=== PATIENT | female | born 1945 | race Caucasian/White ===

== ENCOUNTER 2018-07-06 18:13 | Inpatient (IN) | payer MEDICARE ==
[~2018-07-06] VITALS: Ht 160 cm; Wt 74.9 kg
[2018-07-06] VITALS (7 sets, daily range): BP systolic 142–183; BP diastolic 59–79; PULSE 70–72; RESP 16–18; Ht 160 cm; Wt 74.9 kg
[2018-07-06] MEDS ORDERED: AMLODIPINE 5 MG TAB PO PRN (23:30)
[2018-07-07] MEDS ORDERED: BISACODYL 10 MG SUPP PR PRN
[2018-07-07] MEDS ORDERED: CALCIUM CARBONATE 500 MG CHEW TAB PO PRN
[2018-07-07] MEDS ORDERED: MELATONIN 3 MG TABLET PO PRN
[2018-07-07] MEDS ORDERED: ONDANSETRON 4 MG TAB PO PRN
[2018-07-07] MEDS ORDERED: GLUCOSE GEL 15 GRAM TUBE PO PRN ×2 (01:00)
[2018-07-07] MEDS ORDERED: DEXTROSE 50% 50 ML SYRINGE IV PRN ×2 (01:00)
[2018-07-07] MEDS ORDERED: GLUCOSE GEL 15 GRAM TUBE BUCCAL PRN (01:00)
[2018-07-07] MEDS ORDERED: GLUCAGON 1 MG INJ IM PRN (01:00)
[2018-07-07 02:00] VITALS: BP 152/76; PULSE 69; RESP 18
[2018-07-07] MEDS ORDERED: LACTULOSE 30ML CUP PO PRN (03:30)
[2018-07-07] MEDS ORDERED: MAGNESIUM HYDROXIDE 30ML CUP PO PRN (03:30)
[2018-07-07] MEDS: LEVOFLOXACIN 500 MG TAB PO SCH (06:42)
[2018-07-07] MEDS: PANTOPRAZOLE (EC) 40 MG TAB PO SCH (06:43)
[2018-07-07 07:30] VITALS: BP 180/77; PULSE 95; RESP 20
[2018-07-07] MEDS: metFORMIN 500 MG TAB PO SCH (08:06)
[2018-07-07] MEDS: INSULIN ASPART [NOVOLOG] 3 ML PEN SC SCH ×7 (08:07→20:19)
[2018-07-07] MEDS: HYDROCODONE/APAP (5/325) TAB PO PRN ×3 (08:08→20:40)
[2018-07-07] MEDS: DOCUSATE SODIUM 100 MG CAP PO SCH ×2 (08:09→19:51)
[2018-07-07] MEDS: LEVETIRACETAM 500 MG TAB PO SCH (08:09)
[2018-07-07] MEDS: FENOFIBRATE 145 MG TAB PO SCH (08:09)
[2018-07-07] MEDS: METOPROLOL (XL) 100 MG TAB PO SCH (08:10)
[2018-07-07] MEDS: LACOSAMIDE (100 MG/10 ML PO SYR) PO SCH ×2 (08:10→19:50)
[2018-07-07] MEDS: LIDOCAINE 5% PATCH TD SCH (08:10)
[2018-07-07] MEDS: FOLIC ACID 1 MG TAB PO SCH (08:10)
[2018-07-07 09:06] VITALS: BP 194/77; PULSE 78
[2018-07-07 09:38] VITALS: BP 146/63; PULSE 75; RESP 19
--- NOTE | 2018-07-07 10:33 | HP ---
DATE OF ADMISSION: 07/06/2018 CHIEF COMPLAINT: Mechanical fall, encephalopathy, and urinary tract infection. 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 The patient on admission had a CT scan of the brain, which sh owed no evidence of acute cerebrovascular accident. The patient during the hospital course also note d to have a urinary tract infection, toxic encephalopathy and was treated with IV antibiotics. Durin g the hospital course, the patient also developed acute kidney injury, which is felt to be secondary to hemodynamics, was treated with IV hydration with improvement of renal function. The patient also during the hospital course noted to have significant fluctuations in blood glucose level necessitatin g adjustment of her diabetic regimen. Further evaluation did show evidence of a right upper extremit y fracture. The patient was evaluated by orthopedist and recommendation was made for conservative ma nagement. The patient, however, had a significant decline in premorbid state as a result was transfe rred to [facility] for continued care. Upon my evaluation of the patient at this time, she is currently stable. She denies any chest pain. The patient complained of right shoulder pain. She denies any fevers, chills, or nausea, no vomitin g. PAST MEDICAL HISTORY: As stated above, history of melanoma, history of diabetes, dyslipidemia, histo ry of hypercoagulable state, history of cerebrovascular accident with right-sided weakness, history o f sick sinus syndrome. PAST SURGICAL HISTORY: The patient is status post pacemaker placement, status post orthopedic surger y on elbow status post resection of melanoma tumor, status post cholecystectomy, status post hysterec prince. ALLERGIES: THE PATIENT IS ALLERGIC TO PENICILLIN. FAMILY HISTORY: No family history of kidney disease. SOCIAL HISTORY: She does not drink, smoke, do drugs. MEDICATIONS: The patient's medications have been reviewed. REVIEW OF SYSTEMS: A 14-point review of systems was conducted. Pertinent positives stated in HPI, o therwise negative. PHYSICAL EXAMINATION: VITAL SIGNS: Blood pressure is 194/77, pulse 78, temperature 98.3. HEENT: Head is normocephalic. Pupils are reactive. NECK: Supple. JVD was noted. HEART: Regular rate. No gallops or clicks. LUNGS: Show diminished breath sounds at the base. ABDOMEN: Soft, nontender to palpation. EXTREMITIES: Negative for clubbing, cyanosis. Noted ecchymosis on the left upper extremity. DERMATOLOGIC: No rashes. MUSCULOSKELETAL: The patient has noted tenderness to palpation in the right upper extremity. NEUROLOGIC: The patient has strength of 4/5 in right lower extremity and left upper extremity. LABORATORY DATA: Laboratory data has been reviewed. ASSESSMENT AND PLAN: 1. Acute encephalopathy. Etiology was toxic metabolic. The patient's mental status is improved. C ontinue to monitor. 2. Mechanical fall with right humeral fracture. The patient is currently in a sling. We will janes nue to monitor, continue conservative management. Continue pain control. 3. Sepsis secondary to urinary tract infection. The patient is completing antibiotic course. The silvia londono's urine cultures were positive for gram-negative Proteus, sensitive to Levaquin. 4. Acute on chronic renal failure. Etiology was secondary to hemodynamics. The patient's renal fun ction has been improving. Continue to monitor. 5. Anemia. Continue to monitor hemoglobin and hematocrit levels. 6. Mineral bone disorder, monitor calcium and phosphorus levels. 7. History of hypercoagulable state. Continue Coumadin. INR is currently at goal. We will adjust as needed. 8. History of sick sinus syndrome, status post pacemaker placement. Continue to monitor. 9. History of sagittal sinus thrombosis. Continue Coumadin. 10. Diabetes. The patient's glucose levels have been fluctuating. We will continue current regimen . Add a long-acting Lantus, place an endocrinology consult for evaluation. 11. Hypertension. Blood pressure remains elevated. We will adjust blood pressure medications. Add Norvasc. 12. Seizure disorder. Continue Keppra. Continue Vimpat. 13. Dyslipidemia. Continue statin therapy. Continue TriCor. 14. Constipation. Continue current bowel regimen. 15. Gastrointestinal and deep vein thrombosis prophylaxis. Dictated By: NAYELI MCCOLLUM/NTS Conf#: [id number] DID#: [id number] CC: SHIRA LU DO; TERESA PELLETIER MD;*EndCC*
[2018-07-07 14:00] VITALS: BP 131/61; PULSE 70; RESP 20
--- NOTE | 2018-07-07 15:12 | CONS ---
DATE OF ADMISSION: 07/06/2018 DATE OF CONSULTATION: 07/07/2018 TYPE OF CONSULTATION: Rehabilitation post-admission physician evaluation. REHABILITATION IMPAIRMENT CATEGORY: Toxic metabolic encephalopathy superimposed on history of CVA with residual right upper extremity weakness. ACTIVE COMORBIDITIES: 1. Status post fall with right upper extremity fracture, being managed conservatively. 2. Seizure disorder. 3. Diabetes mellitus type 2 with labile blood sugars. 4. Hypertension. 5. Hyperlipidemia. 6. History of hypercoagulable state. 7. History of arrhythmia, sick sinus syndrome and pacemaker placement. 8. Status post sepsis and urinary tract infection. 9. Acute on chronic kidney injury. 10. Impairments in self-care, mobility and cognition. HISTORY OF PRESENT ILLNESS: The patient is a pleasant 73-year-old female with history of multiple medical comorbidities including CVA with residual right upper extremity weakness who is status post mechanical fall with resultant right humeral fracture. The patient was placed in a sling and sent home. The patient was noted to have worsening pain and generalized weakness. She was diagnosed with acute toxic metabolic encephalopathy. The patient's hospital course was notable for sepsis and urinary tract infection, acute on chronic renal failure, hyponatremia. The patient was noted to have significant impairments in self- care and mobility as compared to baseline and has been cleared to transfer to the rehabilitation unit for comprehensive interdisciplinary rehab care. FUNCTIONAL HISTORY: Prior to recent events, she was standby assist for self- care and mobility tasks with caregiver for home. Currently, she is a total assist to max assist for self-care and mobility tasks. I have reviewed the preadmission screen and patient's current functional status is consistent with the preadmission screen. FAMILY AND SOCIAL HISTORY: The patient lives at home with family in a home with multiple steps and does have caregiver assistance. She hopes to return home upon discharge. PAST MEDICAL HISTORY: 1. History of CVA with residual right-sided weakness. 2. Seizure disorder. 3. Hypercoagulable state. 4. Diabetes mellitus type 2. 5. Hypertension. 6. Hyperlipidemia. 7. Cardiac arrhythmia, sick sinus syndrome, status post pacemaker placement. 8. History of chronic kidney disease. 9. History of cholecystectomy. 10. History of hysterectomy. 11. History of melanoma resection. 12. History of elbow surgery. CURRENT MEDICATIONS: 1. Citalopram 40 mg at bedtime. 2. Folic acid 1 mg p.o. daily. 3. Insulin 72 units subcutaneous at bedtime. 4. Insulin sliding scale. 5. Lacosamide 150 mg p.o. b.i.d. 6. Lamotrigine 25 mg p.o. at bedtime. 7. Levetiracetam 1000 mg q.a.m., 1500 mg q.p.m. 8. Levofloxacin 250 mg daily. 9. Protonix 40 mg p.o. daily. 10. Coumadin 3 mg p.o. daily. ALLERGIES: PENICILLIN. PHYSICAL EXAMINATION: VITAL SIGNS: She is currently afebrile with stable vital signs. HEENT: Extraocular motions appear intact. Oropharynx is clear. NECK: Supple. LUNGS: Clear anteriorly. CARDIAC: S1, S2. ABDOMEN: Soft, nontender, positive bowel sounds. NEUROLOGIC: She is awake and alert and oriented to person and hospital. She will follow simple 1-step commands. She demonstrates antigravity strength in the left upper extremity and bilateral lower extremities, the right upper extremity with a humeral brace in place. Distally, she is able to flex and extend fingers. PLAN: The patient has been admitted for comprehensive interdisciplinary acute rehab and is anticipated to tolerate 3 hours of daily therapy in divided doses for at least 5/7 days a week. The treatment plan will include: 1. Physical therapy to focus on bed mobility, transfers and household ambulation with the goals of having the patient reach a standby assist level. 2. Occupational therapy to focus on hygiene, grooming, dressing, bathing and toileting activities with the goal of having patient reach a standby assist level. 3. Rehabilitation nursing for carryover of therapeutic interventions, the goal of continent of bowel and bladder and the goal of patient education with regard to the aforementioned issues. 4. Speech therapy for full cognitive assessment and retraining with the goal of having the patient return to baseline cognition. 5. Neuropsychology for oversight of cognitive program and full cognitive evaluation. REHABILITATION BARRIER: Nonweightbearing to the right upper extremity. INTERVENTION FOR BARRIER: Interdisciplinary approach. ESTIMATED LENGTH OF STAY: 14 days. DISPOSITION GOAL: Home with family and caregiver. 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 After a thorough review of the patient's medical records and complete physical examination, I believe that this patient meets criteria for acute rehabilitation unit level of care under CMS guidelines and the patient is anticipated to make reasonable goals in a reasonable period of time as outlined above. Dictated By: TERESA PRADHAN/ANN MARIE Conf#: [id number] DID#: [id number] CC: SHIRA LU DO;*EndCC* MTDD
[2018-07-07] MEDS: WARFARIN 3 MG TAB PO SCH (17:35)
[2018-07-07 19:54] VITALS: BP 119/61; PULSE 78
[2018-07-07] MEDS: LEVETIRACETAM 750 MG TAB PO SCH (20:05)
[2018-07-07] MEDS: ROSUVASTATIN CALCIUM 40 MG TABLET PO SCH (20:05)
[2018-07-07] MEDS: BENAZEPRIL 20 MG TAB PO SCH (20:07)
[2018-07-07] MEDS: CITALOPRAM 20 MG TAB PO SCH (20:07)
[2018-07-07] MEDS: LAMOTRIGINE 25 MG TAB PO SCH (20:15)
--- NOTE | 2018-07-07 20:26 | CONS ---
DATE OF ADMISSION: 07/06/2018 DATE OF CONSULTATION: 07/07/2018 TYPE OF CONSULTATION: Psychological. REFERRING PHYSICIAN: Teresa Nielson M.D. CONSULTING PSYCHOLOGIST: Ravinder Escalera, PhD. REASON FOR CONSULTATION: This consultation was requested by Dr. Jono Nielson in order to evaluate t he cognitive and emotional functioning of this patient related to her present medical condition. HISTORY OF PRESENT ILLNESS: The patient is a 73-year-old female. The patient does have a history of a cerebrovascular accident in 2016 with right-sided weakness. Since that time, the patient has had a caregiver at home. The patient did have a fall at home and was admitted to the hospital. The gala ent had numerous medical problems and was then cleared medically and then sent to the acute rehabilit ation unit at [facility] for acute multidisciplinary rehabilitation. FAMILY AND SOCIAL HISTORY: The patient lives in a [facility] in [place] with her and daughter. The patient does have a caregiver approximately 14 hours a day every day. The patient does want to return there after discharge. MEDICATIONS: The patient is currently on: 1. Celexa 40 mg daily. SUBSTANCE USE: The patient reports that she does not smoke. The patient reports that she does not u se alcohol or other drugs. MENTAL STATUS EXAMINATION: APPEARANCE: The patient was seen in bed. She is of average height and overweight. The patient is r ight-handed. BEHAVIOR: The patient was cooperative during the consultation. The patient did attempt to answer al l questions presented to her by the interviewer. MOOD AND AFFECT: The patient's mood appears to be depressed. Affect does appear to be anxious. The patient does report that she does have a history of depression and is slightly anxious. PERCEPTION: The patient reports no hallucinations or delusions. The patient was alert to person, pl jyoti, situation and time. MEMORY AND COGNITION: The patient's memory and cognition appear to be basically intact. She was abl e to remember recent and remote events. The patient was able to name the hospital. The patient was able to state the month and the year. The patient was able to state who the vice president of human resources is. She could not remember who the governor of the [facility] is or the mayor of the [facility]. The patient was able to spell "World" backwards. The patient was able to do 1 serial 7 subtr action from 100 after making 1 error and then tried to go further and made an error and could not kayla f correct. INTELLIGENCE: Intelligence would appear to fall in the average range. INSIGHT: Fair. JUDGMENT: Fair. THOUGHT CONTENT: The patient is concerned about her present medical condition. The patient is deali ng with her depression and does feel frustrated about her medical problems. DISCUSSION: The patient can likely benefit from some cognitive/behavioral psychotherapy while she is on the unit. This psychotherapy would focus on her underlying level of depression and her frustrati on about her medical problems. DIAGNOSTIC IMPRESSION: 1. F33.1, major depressive disorder, recurrent, moderate. Thank you very much, Dr. Jono Nielson, for referring this individual. Please do not hesitate to ania collins if you have additional questions. Dictated By: RAVINDER ESCALERA PHD RK/ANN MARIE Conf#: [id number] DID#: [id number] CC: SHIRA LU DO; TERESA NIELSON MD;*End*
[2018-07-07] MEDS: MELATONIN 3 MG TABLET PO PRN (20:35)
[2018-07-07] MEDS ORDERED: SENNA TAB PO PRN (21:00)
[2018-07-08] MEDS: PANTOPRAZOLE (EC) 40 MG TAB PO SCH (06:23)
[2018-07-08] MEDS: LEVOFLOXACIN 500 MG TAB PO SCH (06:23)
[2018-07-08] MEDS: metFORMIN 500 MG TAB PO SCH (07:51)
[2018-07-08] MEDS: INSULIN ASPART [NOVOLOG] 3 ML PEN SC SCH ×7 (07:55→20:17)
[2018-07-08] MEDS: INSULIN GLARGINE [LANTus] (100 UNITS/ML) SYG SC SCH (07:58)
[2018-07-08 08:00] VITALS: BP 170/80; PULSE 74; RESP 16
[2018-07-08] MEDS: DOCUSATE SODIUM 100 MG CAP PO SCH ×2 (08:27→20:16)
[2018-07-08] MEDS: LIDOCAINE 5% PATCH TD SCH (08:27)
[2018-07-08] MEDS: FOLIC ACID 1 MG TAB PO SCH (08:27)
[2018-07-08] MEDS: FENOFIBRATE 145 MG TAB PO SCH (08:27)
[2018-07-08] MEDS: LACOSAMIDE (100 MG/10 ML PO SYR) PO SCH ×2 (08:27→20:16)
[2018-07-08] MEDS: LEVETIRACETAM 500 MG TAB PO SCH (08:27)
[2018-07-08] MEDS: AMLODIPINE 10 MG TAB PO SCH (08:30)
[2018-07-08] MEDS: METOPROLOL (XL) 100 MG TAB PO SCH (08:30)
[2018-07-08 09:53] VITALS: BP 170/80; PULSE 74; RESP 16
--- NOTE | 2018-07-08 10:20 | PN ---
Date/Time of Note Date/Time of Note DATE: 07/08/18 TIME: 10:19 Subjective happy to shower this AM Objective Vital Signs Date Temp Pulse Resp B/P (MAP) Pulse Ox O2 O2 Flow FiO2 Time Delivery Rate 07/08/18 98.2 74 16 170/80 97 Room Air 09:53 (110) Intake and Output 07/07/18 07/07/18 07/08/18 1515:00 23:00 07:00 IntakeIntake Total 200 ml 200 ml BalanceBalance 200 ml 200 ml Exam mod transfer max ambulation [id number] Results/Medications Result Diagram: 07/08/1861807/08/18618 Results 24 hrs Laboratory Tests Test 07/07/18 11:45 07/07/18 17:30 07/07/18 20:16 07/08/18 06:19 Bedside Glucose 141 142 123 White Blood Count 4.5 L Red Blood Count 3.81 L Hemoglobin 9.3 L Hematocrit 30.9 L Mean Corpuscular 81.1 L Volume Mean Corpuscular 24.4 L Hemoglobin Mean Corpuscular 30.1 L Hemoglobin Concent Red Cell 17.2 H Distribution Width Platelet Count 383 Mean Platelet Volume 9.9 Immature 1.800 H Granulocytes % Neutrophils % 67.2 Lymphocytes % 19.1 Monocytes % 8.3 Eosinophils % 2.7 Basophils % 0.9 Nucleated Red Blood 0.0 Cells % Immature 0.080 H Granulocytes # Neutrophils # 3.0 Lymphocytes # 0.9 Monocytes # 0.4 Eosinophils # 0.1 Basophils # 0.0 Nucleated Red Blood 0.0 Cells # Prothrombin Time 27.8 H Prothrombin Time 2.2 Ratio INR International 2.59 Normalized Ratio Sodium Level 138 Potassium Level 4.7 Chloride Level 103 Carbon Dioxide Level 25 Anion Gap 10 Blood Urea Nitrogen 19 Creatinine 1.10 H Est Glomerular Filtrat Rate mL/min Glucose Level 219 Calcium Level 9.4 Phosphorus Level 3.3 Magnesium Level 1.6 L Test 07/08/18 07:42 Bedside Glucose 253 H Medications Current Medications Acetaminophen (Tylenol Tab) 650 mg Q4H PRN PO MILD PAIN(1-3)OR ELEVATED TEMP; Start 07/07/18 at 00:00 Bisacodyl (Dulcolax Supp) 10 mg DAILY PRN HI CONSTIPATION; Start 07/07/18 at 00:00 Calcium Carbonate (Tums) 1,000 mg Q4H PRN PO Indigestion; Start 07/07/18 at 00:00 Citalopram Hydrobromide (Celexa) 40 mg HS PO Last administered on 07/07/18 20:07; Admin Dose 40 MG; Start 07/07/18 at 21:00 Fenofibrate (Tricor) 145 mg DAILY PO Last administered on 07/08/18 08:27; Admin Dose 145 MG; Start 07/07/18 at 09:00 Folic Acid (Folic Acid) 1 mg DAILY PO Last administered on 07/08/18 08:27; Admin Dose 1 MG; Start 07/07/18 at 09:00 Acetaminophen/ Hydrocodone Bitart ([place] (5/325)) 1 tab Q4H PRN PO Pain Last administered on 07/07/18 20:40; Admin Dose 1 TAB; Start 07/07/18 at 00:00 Insulin Aspart (Novolog Insulin Pen) 25 unit WITH MEALS SC Last administered on 07/08/18 07:55; Admin Dose 25 UNIT; Start 07/07/18 at 07:35 Lacosamide (Vimpat Liq) 150 mg BID PO Last administered on 07/08/18 08:27; Admin Dose 150 MG; Start 07/07/18 at 09:00 Lamotrigine (Lamictal) 25 mg HS PO ; Start 07/07/18 at 21:00 Levetiracetam (Keppra) 1,000 mg DAILY PO Last administered on 07/08/18 08:27; Admin Dose 1,000 MG; Start 07/07/18 at 09:00 Levetiracetam (Keppra) 1,500 mg HS PO Last administered on 07/07/18 20:05; Admin Dose 1,500 MG; Start 07/07/18 at 21:00 Levofloxacin (Levaquin) 500 mg DAILY@0600 PO Last administered on 07/08/18 06:23; Admin Dose 500 MG; Start 07/07/18 at 06:00 Lidocaine (Lidoderm) 1 patch DAILY TD Last administered on 07/08/18 08:27; Admin Dose 1 PATCH; Start 07/07/18 at 09:00 Metoprolol Succinate (Toprol Xl) 100 mg DAILY PO Last administered on 4/20/19at 08:30; Admin Dose 100 MG; Start 07/07/18 at 09:00 Ondansetron HCl (Zofran Tab) 4 mg Q6H PRN PO NAUSEA AND/OR VOMITING; Start 07/07/18 at 00:00 Pantoprazole (Protonix Tab) 40 mg DAILY@06 PO Last administered on 07/08/18 06:23; Admin Dose 40 MG; Start 07/07/18 at 06:00 Metformin HCl (Glucophage) 500 mg WITH BREAKFAST PO Last administered on 07/08/18at 07:51; Admin Dose 500 MG; Start 07/07/18 at 07:35 Benazepril HCl (Lotensin) 20 mg HS PO Last administered on 07/07/18 20:07; Admin Dose 20 MG; Start 07/07/18 at 21:00 Warfarin Sodium (Coumadin) 3 mg DAILY@1700 PO Last administered on 07/07/18 17:35; Admin Dose 3 MG; Start 07/07/18 at 17:00 Melatonin (Melatonin) 0.5 mg HS PRN PO Insomnia Last administered on 07/07/18at 20:35; Admin Dose 0.5 MG; Start 07/07/18 at 00:30 Insulin Aspart (Novolog Insulin Pen) NOVOLOG *MODERATE* ALGORITHM WITH MEALS BEDTIME SC Last administered on 07/08/18 07:57; Admin Dose 6 UNIT; Start 07/07/18 at 07:35 Miscellaneous Information 1 ea NOTE XX ; Start 07/07/18 at 01:00 Glucose (Glutose) 15 gm Q15M PRN PO DECREASED GLUCOSE; Start 07/07/18 at 01:00 Glucose (Glutose) 22.5 gm Q15M PRN PO DECREASED GLUCOSE; Start 07/07/18 at 01:00 Dextrose (D50w Syringe) 25 ml Q15M PRN IV DECREASED GLUCOSE; Start 07/07/18 at 01:00 Dextrose (D50w Syringe) 50 ml Q15M PRN IV DECREASED GLUCOSE; Start 07/07/18 at 01:00 Glucagon (Glucagen) 1 mg Q15M PRN IM DECREASED GLUCOSE; Start 07/07/18 at 01:00 Glucose (Glutose) 15 gm Q15M PRN BUCCAL DECREASED GLUCOSE; Start 07/07/18 at 01:00 Rosuvastatin Calcium (Crestor) 20 mg HS PO Last administered on 07/07/18 20:05; Admin Dose 20 MG; Start 07/07/18 at 21:00 Docusate Sodium (Colace) 100 mg BID PO Last administered on 07/08/18at 08:27; Admin Dose 100 MG; Start 07/07/18 at 09:00 Senna (Senokot) 1 tab HS PRN PO CONSTIPATION; Start 07/07/18 at 21:00 Magnesium Hydroxide (Milk Of Mag) 30 ml BID PRN PO CONSTIPATION; Start 07/07/18 at 03:30 Lactulose (Enulose) 20 gm DAILY PRN PO CONSTIPATION; Start 07/07/18 at 03:30 Amlodipine Besylate (Norvasc) 10 mg DAILY PO Last administered on 07/08/18 08:30; Admin Dose 10 MG; Start 07/08/18 at 09:00 Insulin Glargine (Lantus) 15 units DAILY@0800 SC Last administered on 07/08/18at 07:58; Admin Dose 15 UNITS; Start 07/08/18 at 08:00 Simethicone (Mylicon) 160 mg Q6H PRN PO DISTENSION/GAS/BLOATING Last administered on 07/07/18 20:35; Admin Dose 160 MG; Start 07/07/18 at 19:30 Assessment/Plan Additional Assessment/Plan Rehab- Toxic metabolic encephalopathy superimposed on history of CVA with residual right upper extremity weakness. Continue rehab treatment plan Status post fall with right upper extremity fracture, being managed conservatively. Seizure disorder. Diabetes mellitus type 2 with labile blood sugars. Hypertension. Hyperlipidemia. History of hypercoagulable state. History of arrhythmia, sick sinus syndrome and pacemaker placement. Status post sepsis and urinary tract infection. Acute on chronic kidney injury. TERESA PELLETIER MD Jul 08, 2018 10:20
--- NOTE | 2018-07-08 12:59 | CONS ---
Assessment/Plan Assessment/Plan Assessment/Plan (Daily) 1. Acute encephalopathy. Etiology was toxic metabolic. The patient's mental status is improved. Continue to monitor. 2. Mechanical fall with right humeral fracture. The patient is currently in a sling. We will continue to monitor, continue conservative management. Continue pain control. 3. Sepsis secondary to urinary tract infection. The patient is completing antibiotic course. The patient's urine cultures were positive for gram-negative Proteus, sensitive to Levaquin. cont abx 4. Acute on chronic renal failure. Etiology was secondary to hemodynamics. The patient's renal function has been improving. Continue to monitor. 5. Anemia. Continue to monitor hemoglobin and hematocrit levels. 6. Mineral bone disorder, monitor calcium and phosphorus levels. 7. History of hypercoagulable state. Continue Coumadin. INR is currently at goal. We will adjust as needed. 8. History of sick sinus syndrome, status post pacemaker placement. Continue to monitor. 9. History of sagittal sinus thrombosis. Continue Coumadin. 10. Diabetes. The patient's glucose levels have been fluctuating. on lantus. endocrin following 11. Hypertension. cont current meds and titrate as needed 12. Seizure disorder. Continue Keppra. Continue Vimpat. 13. Dyslipidemia. Continue statin therapy. Continue TriCor. 14. Constipation. Continue current bowel regimen. 15. Gastrointestinal and deep vein thrombosis prophylaxis. Consultation Date/Type/Reason Admit Date/Time Jul 06, 2018 at 19:47 Initial Consult Date Date/Time of Note DATE: 07/08/18 TIME: 12:58 24 HR Interval Summary Free Text/Dictation no overnight events denies shortness of breath, n/v or f/c gen nad cv rrr pulm ctab abd soft, nd, nt +bs ext: no edema Exam/Review of Systems Exam Vitals Vital Signs Date Temp Pulse Resp B/P (MAP) Pulse Ox O2 O2 Flow FiO2 Time Delivery Rate 07/08/18 98.2 74 16 170/80 97 Room Air 09:53 (110) Intake and Output 07/07/18 07/07/18 07/08/18 1515:00 23:00 07:00 IntakeIntake Total 200 ml 200 ml BalanceBalance 200 ml 200 ml Results Result Diagram: 07/08/1861807/08/18618 Results 24hrs Laboratory Tests Test 07/07/18 17:30 07/07/18 20:16 07/08/18 06:19 07/08/18 07:42 Bedside Glucose 142 123 253 H White Blood Count 4.5 L Red Blood Count 3.81 L Hemoglobin 9.3 L Hematocrit 30.9 L Mean Corpuscular 81.1 L Volume Mean Corpuscular 24.4 L Hemoglobin Mean Corpuscular 30.1 L Hemoglobin Concent Red Cell 17.2 H Distribution Width Platelet Count 383 Mean Platelet Volume 9.9 Immature 1.800 H Granulocytes % Neutrophils % 67.2 Lymphocytes % 19.1 Monocytes % 8.3 Eosinophils % 2.7 Basophils % 0.9 Nucleated Red Blood 0.0 Cells % Immature 0.080 H Granulocytes # Neutrophils # 3.0 Lymphocytes # 0.9 Monocytes # 0.4 Eosinophils # 0.1 Basophils # 0.0 Nucleated Red Blood 0.0 Cells # Prothrombin Time 27.8 H Prothrombin Time 2.2 Ratio INR International 2.59 Normalized Ratio Sodium Level 138 Potassium Level 4.7 Chloride Level 103 Carbon Dioxide Level 25 Anion Gap 10 Blood Urea Nitrogen 19 Creatinine 1.10 H Est Glomerular Filtrat Rate mL/min Glucose Level 219 Calcium Level 9.4 Phosphorus Level 3.3 Magnesium Level 1.6 L Test 07/08/18 11:57 Bedside Glucose 101 Medications Medication Current Medications Acetaminophen (Tylenol Tab) 650 mg Q4H PRN PO MILD PAIN(1-3)OR ELEVATED TEMP; Start 07/07/18 at 00:00 Bisacodyl (Dulcolax Supp) 10 mg DAILY PRN [place] CONSTIPATION; Start 07/07/18 at 00:00 Calcium Carbonate (Tums) 1,000 mg Q4H PRN PO Indigestion; Start 07/07/18 at 00:00 Citalopram Hydrobromide (Celexa) 40 mg HS PO Last administered on 07/07/18at 20:07; Admin Dose 40 MG; Start 07/07/18 at 21:00 Fenofibrate (Tricor) 145 mg DAILY PO Last administered on 07/08/18at 08:27; Admin Dose 145 MG; Start 07/07/18 at 09:00 Folic Acid (Folic Acid) 1 mg DAILY PO Last administered on 07/08/18at 08:27; Admin Dose 1 MG; Start 07/07/18 at 09:00 Acetaminophen/ Hydrocodone Bitart ([place] (5/325)) 1 tab Q4H PRN PO Pain Last administered on 07/07/18 20:40; Admin Dose 1 TAB; Start 07/07/18 at 00:00 Insulin Aspart (Novolog Insulin Pen) 25 unit WITH MEALS SC Last administered on 07/08/18 12:06; Admin Dose 25 UNIT; Start 07/07/18 at 07:35 Lacosamide (Vimpat Liq) 150 mg BID PO Last administered on 07/08/18 08:27; Admin Dose 150 MG; Start 07/07/18 at 09:00 Lamotrigine (Lamictal) 25 mg HS PO ; Start 07/07/18 at 21:00 Levetiracetam (Keppra) 1,000 mg DAILY PO Last administered on 07/08/18 08:27; Admin Dose 1,000 MG; Start 07/07/18 at 09:00 Levetiracetam (Keppra) 1,500 mg HS PO Last administered on 07/07/18 20:05; Admin Dose 1,500 MG; Start 07/07/18 at 21:00 Levofloxacin (Levaquin) 500 mg DAILY@0600 PO Last administered on 07/08/18 06:23; Admin Dose 500 MG; Start 07/07/18 at 06:00 Lidocaine (Lidoderm) 1 patch DAILY TD Last administered on 07/08/18 08:27; Admin Dose 1 PATCH; Start 07/07/18 at 09:00 Metoprolol Succinate (Toprol Xl) 100 mg DAILY PO Last administered on 07/08/18 08:30; Admin Dose 100 MG; Start 07/07/18 at 09:00 Ondansetron HCl (Zofran Tab) 4 mg Q6H PRN PO NAUSEA AND/OR VOMITING; Start 07/07/18 at 00:00 Pantoprazole (Protonix Tab) 40 mg DAILY@06 PO Last administered on 07/08/18 06:23; Admin Dose 40 MG; Start 07/07/18 at 06:00 Metformin HCl (Glucophage) 500 mg WITH BREAKFAST PO Last administered on 07/08/18 07:51; Admin Dose 500 MG; Start 07/07/18 at 07:35 Benazepril HCl (Lotensin) 20 mg HS PO Last administered on 4/19/19at 20:07; Admin Dose 20 MG; Start 07/07/18 at 21:00 Warfarin Sodium (Coumadin) 3 mg DAILY@1700 PO Last administered on 07/07/18at 17:35; Admin Dose 3 MG; Start 07/07/18 at 17:00 Melatonin (Melatonin) 0.5 mg HS PRN PO Insomnia Last administered on 07/07/18at 20:35; Admin Dose 0.5 MG; Start 07/07/18 at 00:30 Insulin Aspart (Novolog Insulin Pen) NOVOLOG *MODERATE* ALGORITHM WITH MEALS BEDTIME SC Last administered on 07/08/18at 07:57; Admin Dose 6 UNIT; Start 07/07/18 at 07:35 Miscellaneous Information 1 ea NOTE XX ; Start 07/07/18 at 01:00 Glucose (Glutose) 15 gm Q15M PRN PO DECREASED GLUCOSE; Start 07/07/18 at 01:00 Glucose (Glutose) 22.5 gm Q15M PRN PO DECREASED GLUCOSE; Start 07/07/18 at 01:00 Dextrose (D50w Syringe) 25 ml Q15M PRN IV DECREASED GLUCOSE; Start 07/07/18 at 01:00 Dextrose (D50w Syringe) 50 ml Q15M PRN IV DECREASED GLUCOSE; Start 07/07/18 at 01:00 Glucagon (Glucagen) 1 mg Q15M PRN IM DECREASED GLUCOSE; Start 07/07/18 at 01:00 Glucose (Glutose) 15 gm Q15M PRN BUCCAL DECREASED GLUCOSE; Start 07/07/18 at 01:00 Rosuvastatin Calcium (Crestor) 20 mg HS PO Last administered on 07/07/18at 20:05; Admin Dose 20 MG; Start 07/07/18 at 21:00 Docusate Sodium (Colace) 100 mg BID PO Last administered on 07/08/18at 08:27; Admin Dose 100 MG; Start 07/07/18 at 09:00 Senna (Senokot) 1 tab HS PRN PO CONSTIPATION; Start 07/07/18 at 21:00 Magnesium Hydroxide (Milk Of Mag) 30 ml BID PRN PO CONSTIPATION; Start 07/07/18 at 03:30 Lactulose (Enulose) 20 gm DAILY PRN PO CONSTIPATION; Start 07/07/18 at 03:30 Amlodipine Besylate (Norvasc) 10 mg DAILY PO Last administered on 07/08/18at 08:30; Admin Dose 10 MG; Start 07/08/18 at 09:00 Insulin Glargine (Lantus) 15 units DAILY@0800 SC Last administered on 07/08/18at 07:58; Admin Dose 15 UNITS; Start 07/08/18 at 08:00 Simethicone (Mylicon) 160 mg Q6H PRN PO DISTENSION/GAS/BLOATING Last administered on 07/07/18at 20:35; Admin Dose 160 MG; Start 07/07/18 at 19:30 TYESHA WRAY MD Jul 08, 2018 12:59
[2018-07-08] MEDS: MAGNESIUM OXIDE 400 MG TAB PO SCH (13:19)
[2018-07-08 14:57] VITALS: BP 110/56; PULSE 64; RESP 17
[2018-07-08] MEDS ORDERED: LIDOCAINE 5% PATCH TD ONE (15:00)
[2018-07-08] MEDS: WARFARIN 3 MG TAB PO SCH (17:29)
[2018-07-08 20:00] VITALS: BP 156/69; PULSE 71; RESP 16
[2018-07-08] MEDS: ROSUVASTATIN CALCIUM 40 MG TABLET PO SCH (20:15)
[2018-07-08] MEDS: CITALOPRAM 20 MG TAB PO SCH (20:15)
[2018-07-08] MEDS: BENAZEPRIL 20 MG TAB PO SCH (20:15)
[2018-07-08] MEDS: LEVETIRACETAM 750 MG TAB PO SCH (20:16)
[2018-07-08] MEDS: LAMOTRIGINE 25 MG TAB PO SCH (20:16)
[2018-07-08] MEDS: MELATONIN 3 MG TABLET PO PRN (20:27)
[2018-07-08] MEDS: HYDROCODONE/APAP (5/325) TAB PO PRN (20:27)
[2018-07-09 06:00] VITALS: BP 155/73; PULSE 73; RESP 17
[2018-07-09] MEDS: PANTOPRAZOLE (EC) 40 MG TAB PO SCH (06:50)
[2018-07-09] MEDS: LEVOFLOXACIN 500 MG TAB PO SCH (06:50)
[2018-07-09 08:00] VITALS: BP 157/67; PULSE 71; RESP 16
[2018-07-09] MEDS: metFORMIN 500 MG TAB PO SCH (08:03)
[2018-07-09] MEDS: INSULIN GLARGINE [LANTus] (100 UNITS/ML) SYG SC SCH (08:08)
[2018-07-09] MEDS: INSULIN ASPART [NOVOLOG] 3 ML PEN SC SCH ×7 (08:09→21:00)
[2018-07-09] MEDS: FOLIC ACID 1 MG TAB PO SCH (09:17)
[2018-07-09] MEDS: DOCUSATE SODIUM 100 MG CAP PO SCH ×2 (09:17→20:25)
[2018-07-09] MEDS: LEVETIRACETAM 500 MG TAB PO SCH (09:18)
[2018-07-09] MEDS: MAGNESIUM OXIDE 400 MG TAB PO SCH (09:18)
[2018-07-09] MEDS: AMLODIPINE 10 MG TAB PO SCH (09:19)
[2018-07-09] MEDS: METOPROLOL (XL) 100 MG TAB PO SCH (09:19)
[2018-07-09] MEDS: FENOFIBRATE 145 MG TAB PO SCH (09:19)
[2018-07-09] MEDS: LACOSAMIDE (100 MG/10 ML PO SYR) PO SCH ×2 (09:20→20:26)
[2018-07-09] MEDS: LIDOCAINE 5% PATCH TD SCH (09:20)
--- NOTE | 2018-07-09 14:25 | CONS ---
Assessment/Plan Assessment/Plan Assessment/Plan (Daily) 1. Acute encephalopathy. Etiology was toxic metabolic. The patient's mental status is improved. Continue to monitor. 2. Mechanical fall with right humeral fracture. The patient is currently in a sling. We will continue to monitor, continue conservative management. Continue pain control. 3. Sepsis secondary to urinary tract infection. The patient is completing antibiotic course. The patient's urine cultures were positive for gram-negative Proteus, sensitive to Levaquin. cont abx 4. Acute on chronic renal failure. Etiology was secondary to hemodynamics. The patient's renal function has been improving. Continue to monitor. 5. Anemia. Continue to monitor hemoglobin and hematocrit levels. 6. Mineral bone disorder, monitor calcium and phosphorus levels. 7. History of hypercoagulable state. Continue Coumadin. INR is currently at goal. We will adjust as needed. 8. History of sick sinus syndrome, status post pacemaker placement. Continue to monitor. 9. History of sagittal sinus thrombosis. Continue Coumadin. 10. Diabetes. hypoglycemic event this morning. will change lantus to 10units sq qpm. cont metformin, novolog and SSI 11. Hypertension. cont current meds and titrate as needed 12. Seizure disorder. Continue Keppra. Continue Vimpat. 13. Dyslipidemia. Continue statin therapy. Continue TriCor. 14. Constipation. Continue current bowel regimen. 15. Gastrointestinal and deep vein thrombosis prophylaxis. Consultation Date/Type/Reason Admit Date/Time Jul 06, 2018 at 19:47 Initial Consult Date Date/Time of Note DATE: 07/09/18 TIME: 14:22 24 HR Interval Summary Free Text/Dictation had hypoglycemic event this morning denies n/v, shortness, or urinary issues d/w rn gen nad cv rrr pulm ctab abd soft, nd, nt +bs ext; no edema Exam/Review of Systems Exam Vitals Vital Signs Date Temp Pulse Resp B/P (MAP) Pulse Ox O2 O2 Flow FiO2 Time Delivery Rate 07/09/18 98.2 71 16 157/67 96 Room Air 08:00 (97) Intake and Output 07/08/18 07/08/18 07/09/18 1515:00 23:00 07:00 IntakeIntake Total 200 ml 20 ml BalanceBalance 200 ml 20 ml Results Result Diagram: 07/09/1861607/09/18 0617 Results 24hrs Laboratory Tests Test 07/08/18 17:23 07/08/18 20:09 07/09/18 02:13 07/09/18 06:17 Bedside Glucose 255 H 204 151 White Blood Count 5.9 # Red Blood Count 3.71 L Hemoglobin 9.2 L Hematocrit 30.2 L Mean Corpuscular 81.4 L Volume Mean Corpuscular 24.8 L Hemoglobin Mean Corpuscular 30.5 L Hemoglobin Concent Red Cell 17.1 H Distribution Width Platelet Count 391 Mean Platelet Volume 9.5 Immature 3.100 H Granulocytes % Neutrophils % 66.7 Lymphocytes % 19.2 Monocytes % 7.5 Eosinophils % 2.7 Basophils % 0.8 Nucleated Red Blood 0.0 Cells % Immature 0.180 H Granulocytes # Neutrophils # 3.9 Lymphocytes # 1.1 Monocytes # 0.4 Eosinophils # 0.2 Basophils # 0.1 Nucleated Red Blood 0.0 Cells # Sodium Level 139 Potassium Level 4.5 Chloride Level 103 Carbon Dioxide Level 27 Anion Gap 9 Blood Urea Nitrogen 21 H Creatinine 1.13 H Est Glomerular Filtrat Rate mL/min Glucose Level 208 Calcium Level 9.5 Phosphorus Level 3.4 Magnesium Level 1.5 L Test 07/09/18 08:01 07/09/18 11:57 07/09/18 12:14 07/09/18 13:07 Bedside Glucose 231 H 69 L 89 142 Medications Medication Current Medications Acetaminophen (Tylenol Tab) 650 mg Q4H PRN PO MILD PAIN(1-3)OR ELEVATED TEMP; Start 07/07/18 at 00:00 Bisacodyl (Dulcolax Supp) 10 mg DAILY PRN [place] CONSTIPATION; Start 07/07/18 at 00:00 Calcium Carbonate (Tums) 1,000 mg Q4H PRN PO Indigestion; Start 07/07/18 at 00:00 Citalopram Hydrobromide (Celexa) 40 mg HS PO Last administered on 07/08/18at 20:15; Admin Dose 40 MG; Start 07/07/18 at 21:00 Fenofibrate (Tricor) 145 mg DAILY PO Last administered on 07/09/18at 09:19; Admin Dose 145 MG; Start 07/07/18 at 09:00 Folic Acid (Folic Acid) 1 mg DAILY PO Last administered on 07/09/18at 09:17; Admin Dose 1 MG; Start 07/07/18 at 09:00 Acetaminophen/ Hydrocodone Bitart ([place] (5/325)) 1 tab Q4H PRN PO Pain Last administered on 07/08/18 20:27; Admin Dose 1 TAB; Start 07/07/18 at 00:00 Insulin Aspart (Novolog Insulin Pen) 25 unit WITH MEALS SC Last administered on 07/09/18 08:09; Admin Dose 25 UNIT; Start 07/07/18 at 07:35 Lacosamide (Vimpat Liq) 150 mg BID PO Last administered on 07/09/18 09:20; Admin Dose 150 MG; Start 07/07/18 at 09:00 Lamotrigine (Lamictal) 25 mg HS PO Last administered on 07/08/18 20:16; Admin Dose 25 MG; Start 07/07/18 at 21:00 Levetiracetam (Keppra) 1,000 mg DAILY PO Last administered on 07/09/18 09:18; Admin Dose 1,000 MG; Start 07/07/18 at 09:00 Levetiracetam (Keppra) 1,500 mg HS PO Last administered on 07/08/18 20:16; Admin Dose 1,500 MG; Start 07/07/18 at 21:00 Levofloxacin (Levaquin) 500 mg DAILY@0600 PO Last administered on 07/09/18 06:50; Admin Dose 500 MG; Start 07/07/18 at 06:00 Lidocaine (Lidoderm) 1 patch DAILY TD Last administered on 07/09/18 09:20; Admin Dose 1 PATCH; Start 07/07/18 at 09:00 Metoprolol Succinate (Toprol Xl) 100 mg DAILY PO Last administered on 07/09/18 09:19; Admin Dose 100 MG; Start 07/07/18 at 09:00 Ondansetron HCl (Zofran Tab) 4 mg Q6H PRN PO NAUSEA AND/OR VOMITING; Start 07/07/18 at 00:00 Pantoprazole (Protonix Tab) 40 mg DAILY@06 PO Last administered on 07/09/18 06:50; Admin Dose 40 MG; Start 07/07/18 at 06:00 Metformin HCl (Glucophage) 500 mg WITH BREAKFAST PO Last administered on 08:03; Admin Dose 500 MG; Start 07/07/18 at 07:35 Benazepril HCl (Lotensin) 20 mg HS PO Last administered on 07/08/18 20:15; Admin Dose 20 MG; Start 07/07/18 at 21:00 Warfarin Sodium (Coumadin) 3 mg DAILY@1700 PO Last administered on 07/08/18 17:29; Admin Dose 3 MG; Start 07/07/18 at 17:00 Melatonin (Melatonin) 0.5 mg HS PRN PO Insomnia Last administered on 07/08/18 20:27; Admin Dose 0.5 MG; Start 07/07/18 at 00:30 Insulin Aspart (Novolog Insulin Pen) NOVOLOG *MODERATE* ALGORITHM WITH MEALS BEDTIME SC Last administered on 07/09/18 08:10; Admin Dose 6 UNIT; Start 07/07/18 at 07:35 Miscellaneous Information 1 ea NOTE XX ; Start 07/07/18 at 01:00 Glucose (Glutose) 15 gm Q15M PRN PO DECREASED GLUCOSE; Start 07/07/18 at 01:00 Glucose (Glutose) 22.5 gm Q15M PRN PO DECREASED GLUCOSE; Start 07/07/18 at 01:00 Dextrose (D50w Syringe) 25 ml Q15M PRN IV DECREASED GLUCOSE; Start 07/07/18 at 01:00 Dextrose (D50w Syringe) 50 ml Q15M PRN IV DECREASED GLUCOSE; Start 07/07/18 at 01:00 Glucagon (Glucagen) 1 mg Q15M PRN IM DECREASED GLUCOSE; Start 07/07/18 at 01:00 Glucose (Glutose) 15 gm Q15M PRN BUCCAL DECREASED GLUCOSE; Start 07/07/18 at 01:00 Rosuvastatin Calcium (Crestor) 20 mg HS PO Last administered on 07/08/18at 20:15; Admin Dose 20 MG; Start 07/07/18 at 21:00 Docusate Sodium (Colace) 100 mg BID PO Last administered on 07/09/18at 09:17; Admin Dose 100 MG; Start 07/07/18 at 09:00 Senna (Senokot) 1 tab HS PRN PO CONSTIPATION; Start 07/07/18 at 21:00 Magnesium Hydroxide (Milk Of Mag) 30 ml BID PRN PO CONSTIPATION; Start 07/07/18 at 03:30 Lactulose (Enulose) 20 gm DAILY PRN PO CONSTIPATION; Start 07/07/18 at 03:30 Amlodipine Besylate (Norvasc) 10 mg DAILY PO Last administered on 07/09/18at 09:19; Admin Dose 10 MG; Start 07/08/18 at 09:00 Insulin Glargine (Lantus) 15 units DAILY@0800 SC Last administered on 07/09/18 08:08; Admin Dose 15 UNITS; Start 07/08/18 at 08:00 Simethicone (Mylicon) 160 mg Q6H PRN PO DISTENSION/GAS/BLOATING Last administered on 07/09/18 09:43; Admin Dose 160 MG; Start 07/07/18 at 19:30 Magnesium Oxide (Mag-Ox 400) 400 mg DAILY PO Last administered on 07/09/18at 09:18; Admin Dose 400 MG; Start 07/08/18 at 13:00; Stop 07/12/18 at 08:59 TYESHA WRAY MD Jul 09, 2018 14:25
[2018-07-09 16:19] VITALS: BP 128/61; PULSE 70; RESP 18
[2018-07-09] MEDS: WARFARIN 3 MG TAB PO SCH (17:42)
[2018-07-09 20:00] VITALS: BP 132/58; PULSE 71; RESP 17
[2018-07-09] MEDS: CITALOPRAM 20 MG TAB PO SCH (20:24)
[2018-07-09] MEDS: ROSUVASTATIN CALCIUM 40 MG TABLET PO SCH (20:24)
[2018-07-09] MEDS: LAMOTRIGINE 25 MG TAB PO SCH (20:25)
[2018-07-09] MEDS: BENAZEPRIL 20 MG TAB PO SCH (20:25)
[2018-07-09] MEDS: MELATONIN 3 MG TABLET PO PRN (20:26)
[2018-07-09] MEDS: LEVETIRACETAM 750 MG TAB PO SCH (20:26)
[2018-07-10 06:00] VITALS: BP 146/62; PULSE 75; RESP 17
[2018-07-10] MEDS: LEVOFLOXACIN 500 MG TAB PO SCH (06:26)
[2018-07-10] MEDS: PANTOPRAZOLE (EC) 40 MG TAB PO SCH (06:26)
[2018-07-10] MEDS: metFORMIN 500 MG TAB PO SCH (07:47)
[2018-07-10] MEDS: INSULIN ASPART [NOVOLOG] 3 ML PEN SC SCH ×7 (07:48→20:47)
[2018-07-10] MEDS: DOCUSATE SODIUM 100 MG CAP PO SCH ×2 (08:08→20:49)
[2018-07-10] MEDS: LIDOCAINE 5% PATCH TD SCH (08:08)
[2018-07-10] MEDS: LEVETIRACETAM 500 MG TAB PO SCH (08:08)
[2018-07-10] MEDS: LACOSAMIDE (100 MG/10 ML PO SYR) PO SCH ×2 (08:08→20:40)
[2018-07-10 08:09] VITALS: BP 128/57; PULSE 72; RESP 19
[2018-07-10] MEDS: MAGNESIUM OXIDE 400 MG TAB PO SCH (08:09)
[2018-07-10] MEDS: ACETAMINOPHEN 325 MG TAB PO PRN (08:09)
[2018-07-10] MEDS: FOLIC ACID 1 MG TAB PO SCH (08:09)
[2018-07-10] MEDS: FENOFIBRATE 145 MG TAB PO SCH (08:09)
[2018-07-10] MEDS: AMLODIPINE 10 MG TAB PO SCH (08:09)
[2018-07-10] MEDS: METOPROLOL (XL) 100 MG TAB PO SCH (08:13)
--- NOTE | 2018-07-10 10:05 | PN ---
DATE: 07/10/2018 SUBJECTIVE: The patient is stable. Patient continues to have pain in her right shoulder. No other events noted. OBJECTIVE: VITAL SIGNS: Blood pressure is 146/62, respirations 17, pulse 75, temperature 98.0. HEENT: Head is normocephalic. NECK: Supple. HEART: Regular rate. LUNGS: Show diminished breath sounds at the base. ABDOMEN: Soft, nontender to palpation without rebound or guarding. EXTREMITIES: Negative for clubbing, cyanosis, no edema. DERMATOLOGIC: No rashes. MUSCULOSKELETAL: No joint effusions. NEUROLOGIC: No change in exam. MEDICATIONS: Reviewed. LABORATORY DATA: Has been reviewed. ASSESSMENT AND PLAN: 1. Acute encephalopathy, etiology toxic metabolic, improved. Continue to monitor. 2. Mechanical fall with right humeral fracture. The patient is in a sling. Continue conservative m anagement. 3. Sepsis secondary to urinary tract infection. Patient is completing antibiotic course. 4. Acute on chronic renal failure. Etiology is secondary to hemodynamics. Renal function is improv ed. Continue to monitor. 5. Anemia. Monitor hemoglobin and hematocrit levels. 6. Mineral bone disorder. Continue to monitor calcium and phosphorus levels. 7. History of hypercoagulable state. Continue Coumadin. INR is currently at goal. Will monitor an d adjust as needed. 8. Sick sinus syndrome. The patient is status post pacemaker placement. 9. History of sagittal sinus thrombosis. Continue Coumadin. 10. Diabetes. Continue current insulin regimen, adjust as needed. 11. Hypertension. Continue current blood pressure regimen. 12. Seizure disorder. Continue Keppra and Vimpat. 13. Dyslipidemia. Continue statin therapy. 14. Constipation. Continue current bowel regimen. 15. Gastrointestinal and deep vein thrombosis prophylaxis. Dictated By: NAYELI CHAUDHARI DO NR/NTS Conf#: [id number] DID#: [id number] CC: TERESA PELLETIER MD;*EndCC*
--- NOTE | 2018-07-10 13:59 | PN ---
Date/Time of Note Date/Time of Note DATE: 07/10/18 TIME: 13:58 Objective Vital Signs Date Temp Pulse Resp B/P (MAP) Pulse Ox O2 O2 Flow FiO2 Time Delivery Rate 07/10/18 97.9 72 19 128/57 96 Room Air 08:09 (80) Intake and Output 07/09/18 07/09/18 07/10/18 1515:00 23:00 07:00 IntakeIntake Total 850 ml BalanceBalance 850 ml Exam INTERDISCIPLINARY TEAM CONFERENCE Attended by PT, OT, ST, Lithographing Machine Operator, Social Work, Rehabilitation Nursing, Conference Concierge and Manipulative Therapy SpecialistJunior Systems Analyst Exam: Pulm- cta Abd-soft BOWEL- Cont BLADDER-Cont SKIN- intact OT- DRESSING- max BATHING-max TOILETING-max PT- BED MOBILITY-mod/max TRANSFERS-max AMBULATION-max 10 feet SPEECH- COGNITION- cues for safety, some impairments in STM A/P- Interdisciplinary team conference held today. Please see interdisciplinary sheet. Working toward d.c. on 07/21 with post discharge follow up of physical therapy, occupational therapy. Results/Medications Result Diagram: 07/09/1861607/09/18 0617 Results 24 hrs Laboratory Tests Test 07/09/18 17:41 07/09/18 20:17 07/10/18 06:14 07/10/18 07:43 Bedside Glucose 220 156 225 H Prothrombin Time 29.1 H Prothrombin Time 2.3 Ratio INR International 2.75 Normalized Ratio Test 07/10/18 12:03 Bedside Glucose 197 Medications Current Medications Acetaminophen (Tylenol Tab) 650 mg Q4H PRN PO MILD PAIN(1-3)OR ELEVATED TEMP Last administered on 07/10/18at 08:09; Admin Dose 650 MG; Start 07/07/18 at 00:00 Bisacodyl (Dulcolax Supp) 10 mg DAILY PRN [place] CONSTIPATION; Start 07/07/18 at 00:00 Calcium Carbonate (Tums) 1,000 mg Q4H PRN PO Indigestion; Start 07/07/18 at 00:00 Citalopram Hydrobromide (Celexa) 40 mg HS PO Last administered on 07/09/18at 20:24; Admin Dose 40 MG; Start 07/07/18 at 21:00 Fenofibrate (Tricor) 145 mg DAILY PO Last administered on 07/10/18 08:09; Admin Dose 145 MG; Start 07/07/18 at 09:00 Folic Acid (Folic Acid) 1 mg DAILY PO Last administered on 07/10/18 08:09; Admin Dose 1 MG; Start 07/07/18 at 09:00 Acetaminophen/ Hydrocodone Bitart ([place] (5/325)) 1 tab Q4H PRN PO Pain Last administered on 07/08/18 20:27; Admin Dose 1 TAB; Start 07/07/18 at 00:00 Insulin Aspart (Novolog Insulin Pen) 25 unit WITH MEALS SC Last administered on 07/10/18 12:05; Admin Dose 25 UNIT; Start 07/07/18 at 07:35 Lacosamide (Vimpat Liq) 150 mg BID PO Last administered on 07/10/18 08:08; Admin Dose 150 MG; Start 07/07/18 at 09:00 Lamotrigine (Lamictal) 25 mg HS PO Last administered on 07/09/18 20:25; Admin Dose 25 MG; Start 07/07/18 at 21:00 Levetiracetam (Keppra) 1,000 mg DAILY PO Last administered on 07/10/18 08:08; Admin Dose 1,000 MG; Start 07/07/18 at 09:00 Levetiracetam (Keppra) 1,500 mg HS PO Last administered on 07/09/18 20:26; Admin Dose 1,500 MG; Start 07/07/18 at 21:00 Levofloxacin (Levaquin) 500 mg DAILY@0600 PO Last administered on 07/10/18 06:26; Admin Dose 500 MG; Start 07/07/18 at 06:00 Lidocaine (Lidoderm) 1 patch DAILY TD Last administered on 07/10/18 08:08; Admin Dose 1 PATCH; Start 07/07/18 at 09:00 Metoprolol Succinate (Toprol Xl) 100 mg DAILY PO Last administered on 07/10/18 08:13; Admin Dose 100 MG; Start 07/07/18 at 09:00 Ondansetron HCl (Zofran Tab) 4 mg Q6H PRN PO NAUSEA AND/OR VOMITING; Start 07/07/18 at 00:00 Pantoprazole (Protonix Tab) 40 mg DAILY@06 PO Last administered on 07/10/18 06:26; Admin Dose 40 MG; Start 07/07/18 at 06:00 Metformin HCl (Glucophage) 500 mg WITH BREAKFAST PO Last administered on 07/10/18 07:47; Admin Dose 500 MG; Start 07/07/18 at 07:35 Benazepril HCl (Lotensin) 20 mg HS PO Last administered on 07/09/18 20:25; Admin Dose 20 MG; Start 07/07/18 at 21:00 Warfarin Sodium (Coumadin) 3 mg DAILY@1700 PO Last administered on 07/09/18 17:42; Admin Dose 3 MG; Start 07/07/18 at 17:00 Melatonin (Melatonin) 0.5 mg HS PRN PO Insomnia Last administered on 07/09/18 20:26; Admin Dose 0.5 MG; Start 07/07/18 at 00:30 Insulin Aspart (Novolog Insulin Pen) NOVOLOG *MODERATE* ALGORITHM WITH MEALS BEDTIME SC Last administered on 07/10/18 12:08; Admin Dose 4 UNIT; Start 07/07 at 07:35 Miscellaneous Information 1 ea NOTE XX ; Start 07/07/18 at 01:00 Glucose (Glutose) 15 gm Q15M PRN PO DECREASED GLUCOSE; Start 07/07/18 at 01:00 Glucose (Glutose) 22.5 gm Q15M PRN PO DECREASED GLUCOSE; Start 07/07/18 at 01:00 Dextrose (D50w Syringe) 25 ml Q15M PRN IV DECREASED GLUCOSE; Start 07/07/18 at 01:00 Dextrose (D50w Syringe) 50 ml Q15M PRN IV DECREASED GLUCOSE; Start 07/07/18 at 01:00 Glucagon (Glucagen) 1 mg Q15M PRN IM DECREASED GLUCOSE; Start 07/07/18 at 01:00 Glucose (Glutose) 15 gm Q15M PRN BUCCAL DECREASED GLUCOSE; Start 07/07/18 at 01:00 Rosuvastatin Calcium (Crestor) 20 mg HS PO Last administered on 07/09/18 20:24; Admin Dose 20 MG; Start 07/07/18 at 21:00 Docusate Sodium (Colace) 100 mg BID PO Last administered on 07/10/18 08:08; Admin Dose 100 MG; Start 07/07/18 at 09:00 Senna (Senokot) 1 tab HS PRN PO CONSTIPATION; Start 07/07/18 at 21:00 Magnesium Hydroxide (Milk Of Mag) 30 ml BID PRN PO CONSTIPATION; Start 07/07/18 at 03:30 Lactulose (Enulose) 20 gm DAILY PRN PO CONSTIPATION; Start 07/07/18 at 03:30 Amlodipine Besylate (Norvasc) 10 mg DAILY PO Last administered on 07/10/18at 08:09; Admin Dose 10 MG; Start 07/08/18 at 09:00 Simethicone (Mylicon) 160 mg Q6H PRN PO DISTENSION/GAS/BLOATING Last administered on 07/10/18at 12:10; Admin Dose 160 MG; Start 07/07/18 at 19:30 Magnesium Oxide (Mag-Ox 400) 400 mg DAILY PO Last administered on 07/10/18at 08:09; Admin Dose 400 MG; Start 07/08/18 at 13:00; Stop 07/12/18 at 08:59 Insulin Glargine (Lantus) 10 units DAILY@2000 SC ; Start 07/10/18 at 20:00 TERESA PELLETIER MD Jul 10, 2018 13:59
[2018-07-10 14:00] VITALS: BP 119/60; PULSE 66; RESP 20
[2018-07-10] MEDS: WARFARIN 3 MG TAB PO SCH (17:34)
[2018-07-10 20:00] VITALS: BP 112/54; PULSE 70; RESP 18
[2018-07-10] MEDS: INSULIN GLARGINE [LANTus] (100 UNITS/ML) SYG SC SCH (20:32)
[2018-07-10] MEDS: ROSUVASTATIN CALCIUM 40 MG TABLET PO SCH (20:35)
[2018-07-10] MEDS: LEVETIRACETAM 750 MG TAB PO SCH (20:37)
[2018-07-10] MEDS: CITALOPRAM 20 MG TAB PO SCH (20:37)
[2018-07-10] MEDS: BENAZEPRIL 20 MG TAB PO SCH (20:38)
[2018-07-10] MEDS: LAMOTRIGINE 25 MG TAB PO SCH (20:39)
[2018-07-10] MEDS: HYDROCODONE/APAP (5/325) TAB PO PRN (20:39)
[2018-07-10] MEDS: MELATONIN 3 MG TABLET PO PRN (20:46)
[2018-07-11] MEDS: PANTOPRAZOLE (EC) 40 MG TAB PO SCH (06:14)
[2018-07-11] MEDS: LEVOFLOXACIN 500 MG TAB PO SCH (06:14)
[2018-07-11 07:00] VITALS: BP 142/65; PULSE 71; RESP 18
[2018-07-11] MEDS: metFORMIN 500 MG TAB PO SCH (08:08)
[2018-07-11] MEDS: ACETAMINOPHEN 325 MG TAB PO PRN ×3 (08:10→20:38)
[2018-07-11] MEDS: INSULIN ASPART [NOVOLOG] 3 ML PEN SC SCH ×7 (08:12→20:55)
[2018-07-11] MEDS: DOCUSATE SODIUM 100 MG CAP PO SCH ×2 (09:00→20:25)
[2018-07-11] MEDS: FENOFIBRATE 145 MG TAB PO SCH (09:02)
[2018-07-11] MEDS: LEVETIRACETAM 500 MG TAB PO SCH (09:03)
[2018-07-11] MEDS: FOLIC ACID 1 MG TAB PO SCH (09:03)
[2018-07-11] MEDS: AMLODIPINE 10 MG TAB PO SCH (09:04)
[2018-07-11] MEDS: MAGNESIUM OXIDE 400 MG TAB PO SCH (09:04)
[2018-07-11] MEDS: METOPROLOL (XL) 100 MG TAB PO SCH (09:05)
[2018-07-11] MEDS: LIDOCAINE 5% PATCH TD SCH (09:15)
[2018-07-11] MEDS: LACOSAMIDE (100 MG/10 ML PO SYR) PO SCH ×2 (10:00→20:24)
--- NOTE | 2018-07-11 10:10 | PN ---
DATE: 07/11/2018 SUBJECTIVE: The patient is stable. The patient states she feels dehydrated. No other events noted. OBJECTIVE: VITAL SIGNS: Blood pressure is 142/65, respirations 18, pulse 71, temperature 98.3. HEENT: Head is normocephalic. NECK: Supple. HEART: Regular rate. LUNGS: Show diminished breath sounds at the base. ABDOMEN: Soft, nontender to palpation. No rebound or guarding. EXTREMITIES: Negative for clubbing, cyanosis, no edema. DERMATOLOGIC: No rashes. MUSCULOSKELETAL: No joint effusion. NEUROLOGIC: No change in exam. MEDICATIONS: Reviewed. LABORATORY DATA: From 07/11/2018 was reviewed. ASSESSMENT AND PLAN: 1. Acute encephalopathy, etiology is toxic metabolic, improved. Continue to monitor. 2. Mechanical fall with right humeral fracture. The patient is currently in a sling. Continue cons ervative management. 3. Sepsis secondary to urinary tract infection. The patient is completing antibiotic course. 4. Acute kidney injury on top of chronic kidney disease, etiology is secondary to hemodynamics. Yoni al function has been fluctuating, but overall stable. Continue to monitor. 5. Anemia. Monitor hemoglobin and hematocrit levels. 6. Mineral bone disorder, monitor calcium and phosphorus levels. 7. History of hypercoagulable state. The patient is currently on Coumadin. INR is at goal. We katharine l hold Coumadin dose today. Follow up INR tomorrow. 8. Sick sinus syndrome. The patient is status post pacemaker. 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 10. Diabetes. Continue current insulin regimen. 11. Hypertension. Continue current blood pressure regimen. 12. Seizure disorder. Continue Keppra and Vimpat. 13. Dyslipidemia. Continue statin therapy. 14. Constipation. Continue current bowel regimen. 15. Gastrointestinal and deep vein thrombosis prophylaxis. Dictated By: NAYELI CHAUDHARI DO NR/NTS Conf#: [id number] DID#: [id number] CC: SHIRA LU DO; TERESA PELLETIER MD;*EndCC*
--- NOTE | 2018-07-11 12:56 | PN ---
Date/Time of Note Date/Time of Note DATE: 07/11/18 TIME: 12:49 Subjective Feeling better today Objective Vital Signs Date Temp Pulse Resp B/P (MAP) Pulse Ox O2 O2 Flow FiO2 Time Delivery Rate 07/11/18 98.3 71 18 142/65 96 Room Air 07:00 (90) Intake and Output 07/10/18 07/10/18 07/11/18 1515:00 23:00 07:00 IntakeIntake Total 500 ml BalanceBalance 500 ml Exam mod amb 15 feet [id number] Results/Medications Result Diagram: 07/11/18 0642 07/11/18 0642 Results 24 hrs Laboratory Tests Test 07/10/18 17:30 07/10/18 20:29 07/11/18 06:42 07/11/18 08:02 Bedside Glucose 112 166 224 H White Blood Count 6.6 Red Blood Count 3.83 L Hemoglobin 9.8 L Hematocrit 31.8 L Mean Corpuscular 83.0 Volume Mean Corpuscular 25.6 L Hemoglobin Mean Corpuscular 30.8 L Hemoglobin Concent Red Cell 17.4 H Distribution Width Platelet Count 448 H Mean Platelet Volume 9.4 Immature 4.000 H Granulocytes % Neutrophils % 66.7 Lymphocytes % 17.9 Monocytes % 7.9 Eosinophils % 2.4 Basophils % 1.1 Nucleated Red Blood 0.0 Cells % Immature 0.260 H Granulocytes # Neutrophils # 4.4 Lymphocytes # 1.2 Monocytes # 0.5 Eosinophils # 0.2 Basophils # 0.1 Nucleated Red Blood 0.0 Cells # Prothrombin Time 31.2 H Prothrombin Time 2.4 Ratio INR International 3.00 Normalized Ratio Sodium Level 139 Potassium Level 4.8 Chloride Level 103 Carbon Dioxide Level 25 Anion Gap 11 Blood Urea Nitrogen 29 H Creatinine 1.27 H Est Glomerular Filtrat Rate mL/min Glucose Level 214 Calcium Level 10.0 Phosphorus Level 3.7 Magnesium Level 1.7 Test 07/11/18 12:11 Bedside Glucose 50 L Medications Current Medications Acetaminophen (Tylenol Tab) 650 mg Q4H PRN PO MILD PAIN(1-3)OR ELEVATED TEMP Last administered on 07/11/18at 08:10; Admin Dose 650 MG; Start 07/07/18 at 00:00 Bisacodyl (Dulcolax Supp) 10 mg DAILY PRN [place] CONSTIPATION; Start 07/07/18 at 00:00 Calcium Carbonate (Tums) 1,000 mg Q4H PRN PO Indigestion; Start 07/07/18 at 00:00 Citalopram Hydrobromide (Celexa) 40 mg HS PO Last administered on 07/10/18 20:37; Admin Dose 40 MG; Start 07/07/18 at 21:00 Fenofibrate (Tricor) 145 mg DAILY PO Last administered on 07/11/18 09:02; Admin Dose 145 MG; Start 07/07/18 at 09:00 Folic Acid (Folic Acid) 1 mg DAILY PO Last administered on 07/11/18 09:03; Admin Dose 1 MG; Start 07/07/18 at 09:00 Acetaminophen/ Hydrocodone Bitart ([place] (5/325)) 1 tab Q4H PRN PO Pain Last administered on 07/10/18 20:39; Admin Dose 1 TAB; Start 07/07/18 at 00:00 Insulin Aspart (Novolog Insulin Pen) 25 unit WITH MEALS SC Last administered on 07/11/18 08:12; Admin Dose 25 UNIT; Start 07/07/18 at 07:35 Lacosamide (Vimpat Liq) 150 mg BID PO Last administered on 07/11/18 10:00; Admin Dose 150 MG; Start 07/07/18 at 09:00 Lamotrigine (Lamictal) 25 mg HS PO Last administered on 07/10/18 20:39; Admin Dose 25 MG; Start 07/07/18 at 21:00 Levetiracetam (Keppra) 1,000 mg DAILY PO Last administered on 07/11/18 09:03; Admin Dose 1,000 MG; Start 07/07/18 at 09:00 Levetiracetam (Keppra) 1,500 mg HS PO Last administered on 07/10/18 20:37; Admin Dose 1,500 MG; Start 07/07/18 at 21:00 Levofloxacin (Levaquin) 500 mg DAILY@0600 PO Last administered on 07/11/18 06:14; Admin Dose 500 MG; Start 07/07/18 at 06:00 Lidocaine (Lidoderm) 1 patch DAILY TD Last administered on 07/11/18 09:15; Admin Dose 1 PATCH; Start 07/07/18 at 09:00 Metoprolol Succinate (Toprol Xl) 100 mg DAILY PO Last administered on 07/11/18 09:05; Admin Dose 100 MG; Start 07/07/18 at 09:00 Ondansetron HCl (Zofran Tab) 4 mg Q6H PRN PO NAUSEA AND/OR VOMITING; Start 07/07/18 at 00:00 Pantoprazole (Protonix Tab) 40 mg DAILY@06 PO Last administered on 07/11/18 06:14; Admin Dose 40 MG; Start 07/07/18 at 06:00 Metformin HCl (Glucophage) 500 mg WITH BREAKFAST PO Last administered on 07/11/18 08:08; Admin Dose 500 MG; Start 07/07/18 at 07:35 Benazepril HCl (Lotensin) 20 mg HS PO Last administered on 07/09/18 20:25; Ad min Dose 20 MG; Start 07/07/18 at 21:00 Warfarin Sodium (Coumadin) 3 mg DAILY@1700 PO Last administered on 07/10/18 17:34; Admin Dose 3 MG; Start 07/07/18 at 17:00; Status Hold Melatonin (Melatonin) 0.5 mg HS PRN PO Insomnia Last administered on 07/10/18 20:46; Admin Dose 0.5 MG; Start 07/07/18 at 00:30 Insulin Aspart (Novolog Insulin Pen) NOVOLOG *MODERATE* ALGORITHM WITH MEALS BEDTIME SC Last administered on 07/11/18 08:13; Admin Dose 6 UNIT; Start 07/07/18 at 07:35 Miscellaneous Information 1 ea NOTE XX ; Start 07/07/18 at 01:00 Glucose (Glutose) 15 gm Q15M PRN PO DECREASED GLUCOSE; Start 07/07/18 at 01:00 Glucose (Glutose) 22.5 gm Q15M PRN PO DECREASED GLUCOSE; Start 07/07/18 at 01:00 Dextrose (D50w Syringe) 25 ml Q15M PRN IV DECREASED GLUCOSE; Start 07/07/18 at 01:00 Dextrose (D50w Syringe) 50 ml Q15M PRN IV DECREASED GLUCOSE; Start 07/07/18 at 01:00 Glucagon (Glucagen) 1 mg Q15M PRN IM DECREASED GLUCOSE; Start 07/07/18 at 01:00 Glucose (Glutose) 15 gm Q15M PRN BUCCAL DECREASED GLUCOSE; Start 07/07/18 at 01:00 Rosuvastatin Calcium (Crestor) 20 mg HS PO Last administered on 07/10/18at 20:35; Admin Dose 20 MG; Start 07/07/18 at 21:00 Docusate Sodium (Colace) 100 mg BID PO Last administered on 07/10/18 08:08; Admin Dose 100 MG; Start 07/07/18 at 09:00 Senna (Senokot) 1 tab HS PRN PO CONSTIPATION; Start 07/07/18 at 21:00 Magnesium Hydroxide (Milk Of Mag) 30 ml BID PRN PO CONSTIPATION; Start 07/07/18 at 03:30 Lactulose (Enulose) 20 gm DAILY PRN PO CONSTIPATION; Start 07/07/18 at 03:30 Amlodipine Besylate (Norvasc) 10 mg DAILY PO Last administered on 07/11/18 09:04; Admin Dose 10 MG; Start 07/08/18 at 09:00 Simethicone (Mylicon) 160 mg Q6H PRN PO DISTENSION/GAS/BLOATING Last administered on 07/10/18at 12:10; Admin Dose 160 MG; Start 07/07/18 at 19:30 Magnesium Oxide (Mag-Ox 400) 400 mg DAILY PO Last administered on 07/11/18 09:04; Admin Dose 400 MG; Start 07/08/18 at 13:00; Stop 07/12/18 at 08:59 Insulin Glargine (Lantus) 10 units DAILY@2000 SC Last administered on 07/10/18at 20:32; Admin Dose 10 UNITS; Start 07/10/18 at 20:00 Assessment/Plan Additional Assessment/Plan Rehab- Toxic metabolic encephalopathy superimposed on history of CVA with residual right upper extremity weakness. Good progress today, continue rehab Status post fall with right upper extremity fracture, being managed conservatively. Seizure disorder. Diabetes mellitus type 2 with labile blood sugars. Hypertension. Hyperlipidemia. History of hypercoagulable state. History of arrhythmia, sick sinus syndrome and pacemaker placement. Status post sepsis and urinary tract infection. Acute on chronic kidney injury. TERESA PELLETIER MD Jul 11, 2018 12:56
[2018-07-11 14:00] VITALS: BP 118/60; PULSE 71; RESP 18
[2018-07-11 20:00] VITALS: BP 132/58; PULSE 73; RESP 18
[2018-07-11] MEDS: CITALOPRAM 20 MG TAB PO SCH (20:25)
[2018-07-11] MEDS: LAMOTRIGINE 25 MG TAB PO SCH ×2 (20:25→20:38)
[2018-07-11] MEDS: LEVETIRACETAM 750 MG TAB PO SCH (20:25)
[2018-07-11] MEDS: ROSUVASTATIN CALCIUM 40 MG TABLET PO SCH (20:25)
[2018-07-11] MEDS: BENAZEPRIL 20 MG TAB PO SCH (20:34)
[2018-07-11] MEDS: INSULIN GLARGINE [LANTus] (100 UNITS/ML) SYG SC SCH (20:55)
[2018-07-12 02:00] VITALS: BP 126/56; PULSE 73; RESP 18
[2018-07-12] MEDS: LEVOFLOXACIN 500 MG TAB PO SCH ×2 (06:44→07:05)
[2018-07-12] MEDS: PANTOPRAZOLE (EC) 40 MG TAB PO SCH ×2 (06:44→07:05)
[2018-07-12] MEDS: INSULIN ASPART [NOVOLOG] 3 ML PEN SC SCH ×7 (07:35→20:33)
[2018-07-12] MEDS: metFORMIN 500 MG TAB PO SCH ×2 (08:05→17:38)
[2018-07-12] MEDS: LIDOCAINE 5% PATCH TD SCH (08:38)
[2018-07-12] MEDS: LACOSAMIDE (100 MG/10 ML PO SYR) PO SCH ×2 (08:38→20:19)
[2018-07-12] MEDS: AMLODIPINE 10 MG TAB PO SCH (08:39)
[2018-07-12] MEDS: FENOFIBRATE 145 MG TAB PO SCH (08:39)
[2018-07-12] MEDS: FOLIC ACID 1 MG TAB PO SCH (08:39)
[2018-07-12] MEDS: DOCUSATE SODIUM 100 MG CAP PO SCH ×3 (08:39→20:17)
[2018-07-12] MEDS: LEVETIRACETAM 500 MG TAB PO SCH (08:39)
[2018-07-12] MEDS: METOPROLOL (XL) 100 MG TAB PO SCH (08:39)
[2018-07-12 08:40] VITALS: BP 130/60; PULSE 72; RESP 19
[2018-07-12] MEDS: ACETAMINOPHEN 325 MG TAB PO PRN ×2 (08:40→20:18)
--- NOTE | 2018-07-12 09:36 | PN ---
DATE: 07/12/2018 SUBJECTIVE: The patient is stable. No events overnight. OBJECTIVE: VITAL SIGNS: Blood pressure 126/56, respirations 18, pulse 73, temperature 98.4. HEENT: Head is normocephalic. NECK: Supple. HEART: Regular rate. LUNGS: Show diminished breath sounds at the base. ABDOMEN: Soft, nontender to palpation without rebound or guarding. EXTREMITIES: Negative for clubbing, cyanosis, no edema. DERMATOLOGIC: No rashes. MUSCULOSKELETAL: No joint effusion. NEUROLOGIC: No change in exam. MEDICATIONS: Reviewed. LABORATORY DATA: Shows elevated glucose levels. ASSESSMENT AND PLAN: 1. Acute encephalopathy, etiology is toxic metabolic, improved. Continue to monitor. 2. Mechanical fall with right humeral fracture. The patient is currently in a sling, nonweightbeari ng. Continue conservative management and pain control. 3. Sepsis secondary to urinary tract infection. We will repeat urine cultures. The patient is comp laining about polyuria. 4. Acute kidney injury on top of chronic kidney disease. Etiology is felt to be hemodynamics. Sarai l function is fluctuating. Continue to monitor. 5. Anemia. Monitor hemoglobin and hematocrit levels. 6. Mineral bone disorder. Monitor calcium and phosphorus levels. 7. History of hypercoagulable state. The patient is currently on Coumadin. INR is at goal. We katharine l continue. 8. Sick sinus syndrome, status post pacemaker. 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 10. Diabetes. The patient's glucose levels are fluctuating. We will place an endocrinology consult for evaluation. 11. Hypertension. Continue current blood pressure regimen. 12. Seizure disorder. Continue Keppra and Vimpat. 13. Dyslipidemia. Continue statin therapy. 14. Constipation. Continue current bowel regimen. 15. Gastrointestinal and deep vein thrombosis prophylaxis. Dictated By: NAYELI CHAUDHARI DO NR/NTS Conf#: [id number] DID#: [id number] CC: SHIRA LU DO; TERESA PELLETIER MD; FRANSISCO GAMBOA MD;*EndCC*
--- NOTE | 2018-07-12 12:51 | PN ---
Date/Time of Note Date/Time of Note DATE: 07/12/18 TIME: 12:50 Subjective Feeling much better Objective Vital Signs Date Temp Pulse Resp B/P (MAP) Pulse Ox O2 O2 Flow FiO2 Time Delivery Rate 07/12/18 98.4 73 18 126/56 98 Room Air 02:00 (79) Intake and Output 07/11/18 07/11/18 07/12/18 1414:59 22:59 06:59 IntakeIntake Total 800 ml 260 ml OutputOutput Total 400 ml BalanceBalance 400 ml 260 ml Exam min transfer min ambulation 10 feet pulm-cta Results/Medications Result Diagram: 07/12/18 0656 07/12/18 0656 Results 24 hrs Laboratory Tests Test 07/11/18 12:55 07/11/18 17:39 07/11/18 20:45 07/12/18 06:56 Bedside Glucose 111 226 H 256 H White Blood Count 6.7 Red Blood Count 4.21 Hemoglobin 10.4 L Hematocrit 35.1 L Mean Corpuscular 83.4 Volume Mean Corpuscular 24.7 L Hemoglobin Mean Corpuscular 29.6 L Hemoglobin Concent Red Cell 17.5 H Distribution Width Platelet Count 541 #H Mean Platelet Volume 9.9 Immature 2.800 H Granulocytes % Neutrophils % 68.2 Lymphocytes % 17.7 Monocytes % 8.0 Eosinophils % 2.1 Basophils % 1.2 Nucleated Red Blood 0.0 Cells % Immature 0.190 H Granulocytes # Neutrophils # 4.6 Lymphocytes # 1.2 Monocytes # 0.5 Eosinophils # 0.1 Basophils # 0.1 Nucleated Red Blood 0.0 Cells # Sodium Level 141 Potassium Level 5.2 H Chloride Level 105 Carbon Dioxide Level 25 Anion Gap 11 Blood Urea Nitrogen 24 H Creatinine 1.20 H Est Glomerular Filtrat Rate mL/min Glucose Level 207 Calcium Level 10.1 Total Bilirubin 0.1 L Direct Bilirubin 0.00 Indirect Bilirubin 0.1 Aspartate Amino 24 Transf (AST/SGOT) Alanine 18 Aminotransferase (AL T/SGPT) Alkaline Phosphatase 141 H Total Protein 6.6 Albumin 3.7 Globulin 2.90 Albumin/Globulin 1.27 Ratio Test 07/12/18 06:59 07/12/18 07:52 07/12/18 09:59 Prothrombin Time 28.3 H Prothrombin Time 2.2 Ratio INR International 2.65 Normalized Ratio Bedside Glucose 230 H 168 Medications Current Medications Acetaminophen (Tylenol Tab) 650 mg Q4H PRN PO MILD PAIN(1-3)OR ELEVATED TEMP Last administered on 07/12/18 08:40; Admin Dose 650 MG; Start 07/07/18 at 00:00 Bisacodyl (Dulcolax Supp) 10 mg DAILY PRN [place] CONSTIPATION; Start 07/07/18 at 00:00 Calcium Carbonate (Tums) 1,000 mg Q4H PRN PO Indigestion; Start 07/07/18 at 00:00 Citalopram Hydrobromide (Celexa) 40 mg HS PO Last administered on 07/11/18 20:25; Admin Dose 40 MG; Start 07/07/18 at 21:00 Fenofibrate (Tricor) 145 mg DAILY PO Last administered on 07/12/18 08:39; Adm in Dose 145 MG; Start 07/07/18 at 09:00 Folic Acid (Folic Acid) 1 mg DAILY PO Last administered on 07/12/18 08:39; Admin Dose 1 MG; Start 07/07/18 at 09:00 Acetaminophen/ Hydrocodone Bitart ([place] (5/325)) 1 tab Q4H PRN PO Pain Last administered on 07/10/18 20:39; Admin Dose 1 TAB; Start 07/07/18 at 00:00 Insulin Aspart (Novolog Insulin Pen) 25 unit WITH MEALS SC Last administered on 07/12/18 08:04; Admin Dose 25 UNIT; Start 07/07/18 at 07:35 Lacosamide (Vimpat Liq) 150 mg BID PO Last administered on 07/12/18 08:38; Admin Dose 150 MG; Start 07/07/18 at 09:00 Lamotrigine (Lamictal) 25 mg HS PO Last administered on 07/11/18 20:38; Admin Dose 25 MG; Start 07/07/18 at 21:00 Levetiracetam (Keppra) 1,000 mg DAILY PO Last administered on 07/12/18 08:39; Admin Dose 1,000 MG; Start 07/07/18 at 09:00 Levetiracetam (Keppra) 1,500 mg HS PO Last administered on 07/11/18 20:25; Admin Dose 1,500 MG; Start 07/07/18 at 21:00 Levofloxacin (Levaquin) 500 mg DAILY@0600 PO Last administered on 07/12/18 07:05; Admin Dose 500 MG; Start 07/07/18 at 06:00 Lidocaine (Lidoderm) 1 patch DAILY TD Last administered on 07/12/18 08:38; Admin Dose 1 PATCH; Start 07/07/18 at 09:00 Metoprolol Succinate (Toprol Xl) 100 mg DAILY PO Last administered on 07/12/18 08:39; Admin Dose 100 MG; Start 07/07/18 at 09:00 Ondansetron HCl (Zofran Tab) 4 mg Q6H PRN PO NAUSEA AND/OR VOMITING; Start 07/07/18 at 00:00 Pantoprazole (Protonix Tab) 40 mg DAILY@06 PO Last administered on 07/12/18 07:05; Admin Dose 40 MG; Start 07/07/18 at 06:00 Metformin HCl (Glucophage) 500 mg WITH BREAKFAST PO Last administered on 07/12/18 08:05; Admin Dose 500 MG; Start 07/07/18 at 07:35 Benazepril HCl (Lotensin) 20 mg HS PO Last administered on 07/11/18 20:34; Admin Dose 20 MG; Start 07/07/18 at 21:00 Warfarin Sodium (Coumadin) 3 mg DAILY@1700 PO Last administered on 07/10/18 17:34; Admin Dose 3 MG; Start 07/07/18 at 17:00 Melatonin (Melatonin) 0.5 mg HS PRN PO Insomnia Last administered on 07/10/18 20:46; Admin Dose 0.5 MG; Start 07/07/18 at 00:30 Insulin Aspart (Novolog Insulin Pen) NOVOLOG *MODERATE* ALGORITHM WITH MEALS BEDTIME SC Last administered on 07/11/18 08:13; Admin Dose 6 UNIT; Start 07/07/18 at 07:35 Miscellaneous Information 1 ea NOTE XX ; Start 07/07/18 at 01:00 Glucose (Glutose) 15 gm Q15M PRN PO DECREASED GLUCOSE; Start 07/07/18 at 01:00 Glucose (Glutose) 22.5 gm Q15M PRN PO DECREASED GLUCOSE; Start 07/07/18 at 01:00 Dextrose (D50w Syringe) 25 ml Q15M PRN IV DECREASED GLUCOSE; Start 07/07/18 at 01:00 Dextrose (D50w Syringe) 50 ml Q15M PRN IV DECREASED GLUCOSE; Start 07/07/18 at 01:00 Glucagon (Glucagen) 1 mg Q15M PRN IM DECREASED GLUCOSE; Start 07/07/18 at 01:00 Glucose (Glutose) 15 gm Q15M PRN BUCCAL DECREASED GLUCOSE; Start 07/07/18 at 01:00 Rosuvastatin Calcium (Crestor) 20 mg HS PO Last administered on 07/11/18 20:25; Admin Dose 20 MG; Start 07/07/18 at 21:00 Docusate Sodium (Colace) 100 mg BID PO Last administered on 07/11/18 20:25; Admin Dose 100 MG; Start 07/07/18 at 09:00 Senna (Senokot) 1 tab HS PRN PO CONSTIPATION; Start 07/07/18 at 21:00 Magnesium Hydroxide (Milk Of Mag) 30 ml BID PRN PO CONSTIPATION; Start 07/07/18 at 03:30 Lactulose (Enulose) 20 gm DAILY PRN PO CONSTIPATION; Start 07/07/18 at 03:30 Amlodipine Besylate (Norvasc) 10 mg DAILY PO Last administered on 07/12/18 08:39; Admin Dose 10 MG; Start 07/08/18 at 09:00 Simethicone (Mylicon) 160 mg Q6H PRN PO DISTENSION/GAS/BLOATING Last administered on 07/11/18at 14:54; Admin Dose 160 MG; Start 07/07/18 at 19:30 Insulin Glargine (Lantus) 10 units DAILY@2000 SC Last administered on 07/11/18 20:55; Admin Dose 10 UNITS; Start 07/10/18 at 20:00 Assessment/Plan Additional Assessment/Plan Rehab- Toxic metabolic encephalopathy superimposed on history of CVA with residual right upper extremity weakness. Steady progress, continue rehab Status post fall with right upper extremity fracture, being managed conservatively. Seizure disorder. Diabetes mellitus type 2 with labile blood sugars. Hypertension. Hyperlipidemia. History of hypercoagulable state. History of arrhythmia, sick sinus syndrome and pacemaker placement. Status post sepsis and urinary tract infection. Acute on chronic kidney injury. TERESA PELLETIER MD Jul 12, 2018 12:51
--- NOTE | 2018-07-12 13:26 | CONS ---
Assessment/Plan Assessment/Plan Problems: (1) Diabetes mellitus type 2 in nonobese Status: Chronic Comment: At this time she is off of her GLP-1 drug Trulicity. Until she can arrange to have a brought in from home she will will be on medications here. I am going to adjust her regimen slightly to try and get her sugar control little bit smoother. Please note she does see an ethnic studies professor in the outpatient setting Dr. Tobin Obrien. He does not have privileges at this facility. Regardless I will try and coordinate with him to make sure that her inpatient and outpatient treatments are cohesive and consistent. (2) Essential hypertension Status: Chronic Comment: She is on JANI inhibitor and also on beta-blockade and dihydropyridine calcium channel bill with adequate control (3) Chronic kidney disease, stage II (mild) Status: Chronic Comment: Noted. Stable (4) Dyslipidemia associated with type 2 diabetes mellitus Status: Chronic Comment: Stable on medication (5) Seizure disorder Status: Chronic Comment: Continues on antiepileptic drugs. 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 She at that time had an altered mental status and acute toxic metabolic encephalopathy which according to information in the computer record was attributed to the urinary tract infection. She had a fall and regrettably sustained a right humerus fracture i.e. the dominant arm. She has a prior history of CVA roughly 2-1/2-3 years ago affecting the right-hand side with persistent weakness. She was transferred to our facility for ongoing rehabilitative care. 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 Current Medications Acetaminophen (Tylenol Tab) 650 mg Q4H PRN PO MILD PAIN(1-3)OR ELEVATED TEMP Last administered on 07/12/18 08:40; Admin Dose 650 MG; Start 07/07/18 at 00:00 Bisacodyl (Dulcolax Supp) 10 mg DAILY PRN [place] CONSTIPATION; Start 07/07/18 at 00:00 Calcium Carbonate (Tums) 1,000 mg Q4H PRN PO Indigestion; Start 07/07/18 at 00:00 Citalopram Hydrobromide (Celexa) 40 mg HS PO Last administered on 07/11/18 20:25; Admin Dose 40 MG; Start 07/07/18 at 21:00 Fenofibrate (Tricor) 145 mg DAILY PO Last administered on 07/12/18 08:39; Admin Dose 145 MG; Start 07/07/18 at 09:00 Folic Acid (Folic Acid) 1 mg DAILY PO Last administered on 07/12/18 08:39; Admin Dose 1 MG; Start 07/07/18 at 09:00 Acetaminophen/ Hydrocodone Bitart ([place] (5/325)) 1 tab Q4H PRN PO Pain Last administered on 07/10/18 20:39; Admin Dose 1 TAB; Start 07/07/18 at 00:00 Insulin Aspart (Novolog Insulin Pen) 25 unit WITH MEALS SC Last administered on 07/12/18 08:04; Admin Dose 25 UNIT; Start 07/07/18 at 07:35 Lacosamide (Vimpat Liq) 150 mg BID PO Last administered on 07/12/18 08:38; Admin Dose 150 MG; Start 07/07/18 at 09:00 Lamotrigine (Lamictal) 25 mg HS PO Last administered on 07/11/18 20:38; Admin Dose 25 MG; Start 07/07/18 at 21:00 Levetiracetam (Keppra) 1,000 mg DAILY PO Last administered on 07/12/18 08:39; Admin Dose 1,000 MG; Start 07/07/18 at 09:00 Levetiracetam (Keppra) 1,500 mg HS PO Last administered on 07/11/18 20:25; Admin Dose 1,500 MG; Start 07/07/18 at 21:00 Levofloxacin (Levaquin) 500 mg DAILY@0600 PO Last administered on 07/12/18 07:05; Admin Dose 500 MG; Start 07/07/18 at 06:00 Lidocaine (Lidoderm) 1 patch DAILY TD Last administered on 07/12/18 08:38; Admin Dose 1 PATCH; Start 07/07/18 at 09:00 Metoprolol Succinate (Toprol Xl) 100 mg DAILY PO Last administered on 07/12/18 08:39; Admin Dose 100 MG; Start 07/07/18 at 09:00 Ondansetron HCl (Zofran Tab) 4 mg Q6H PRN PO NAUSEA AND/OR VOMITING; Start 07/07/18 at 00:00 Pantoprazole (Protonix Tab) 40 mg DAILY@06 PO Last administered on 07/12/18 07:05; Admin Dose 40 MG; Start 07/07/18 at 06:00 Metformin HCl (Glucophage) 500 mg WITH BREAKFAST PO Last administered on 07/12/18 08:05; Admin Dose 500 MG; Start 07/07/18 at 07:35 Benazepril HCl (Lotensin) 20 mg HS PO Last administered on 07/11/18 20:34; Admin Dose 20 MG; Start 07/07/18 at 21:00 Warfarin Sodium (Coumadin) 3 mg DAILY@1700 PO Last administered on 07/10/18 17:34; Admin Dose 3 MG; Start 07/07/18 at 17:00 Melatonin (Melatonin) 0.5 mg HS PRN PO Insomnia Last administered on 07/10/18 20:46; Admin Dose 0.5 MG; Start 07/07/18 at 00:30 Insulin Aspart (Novolog Insulin Pen) NOVOLOG *MODERATE* ALGORITHM WITH MEALS BEDTIME SC Last administered on 07/11/18at 08:13; Admin Dose 6 UNIT; Start 07/07/18 at 07:35 Miscellaneous Information 1 ea NOTE XX ; Start 07/07/18 at 01:00 Glucose (Glutose) 15 gm Q15M PRN PO DECREASED GLUCOSE; Start 07/07/18 at 01:00 Glucose (Glutose) 22.5 gm Q15M PRN PO DECREASED GLUCOSE; Start 07/07/18 at 01:00 Dextrose (D50w Syringe) 25 ml Q15M PRN IV DECREASED GLUCOSE; Start 07/07/18 at 01:00 Dextrose (D50w Syringe) 50 ml Q15M PRN IV DECREASED GLUCOSE; Start 07/07/18 at 01:00 Glucagon (Glucagen) 1 mg Q15M PRN IM DECREASED GLUCOSE; Start 07/07/18 at 01:00 Glucose (Glutose) 15 gm Q15M PRN BUCCAL DECREASED GLUCOSE; Start 07/07/18 at 01:00 Rosuvastatin Calcium (Crestor) 20 mg HS PO Last administered on 07/11/18at 20:25; Admin Dose 20 MG; Start 07/07/18 at 21:00 Docusate Sodium (Colace) 100 mg BID PO Last administered on 07/11/18 20:25; Admin Dose 100 MG; Start 07/07/18 at 09:00 Senna (Senokot) 1 tab HS PRN PO CONSTIPATION; Start 07/07/18 at 21:00 Magnesium Hydroxide (Milk Of Mag) 30 ml BID PRN PO CONSTIPATION; Start 07/07/18 at 03:30 Lactulose (Enulose) 20 gm DAILY PRN PO CONSTIPATION; Start 07/07/18 at 03:30 Amlodipine Besylate (Norvasc) 10 mg DAILY PO Last administered on 07/12/18at 08:39; Admin Dose 10 MG; Start 07/08/18 at 09:00 Simethicone (Mylicon) 160 mg Q6H PRN PO DISTENSION/GAS/BLOATING Last administered on 07/11/18at 14:54; Admin Dose 160 MG; Start 07/07/18 at 19:30 Insulin Glargine (Lantus) 10 units DAILY@2000 SC Last administered on 07/11/18at 20:55; Admin Dose 10 UNITS; Start 07/10/18 at 20:00 Allergies: Coded Allergies: Penicillins (Verified Allergy, Unknown, 07/06/18) Past Surgical History Past Surgical Hx: cholecystectomy, other (Status post SIMIN without BSO; status post elbow surgery; status post pacemaker) Family History Significant Family History: diabetes, hypertension Social History Alcohol Use: rarely Smoking Status: Former smoker Drug Use: none Exam/Review of Systems Exam Vitals Vital Signs Date Temp Pulse Resp B/P (MAP) Pulse Ox O2 O2 Flow FiO2 Time Delivery Rate 07/12/18 98.2 72 19 130/60 97 Room Air 08:40 (83) Intake and Output 07/11/18 07/11/18 07/12/18 1515:00 23:00 07:00 IntakeIntake Total 800 ml 260 ml OutputOutput Total 400 ml BalanceBalance 400 ml 260 ml Constitutional: alert, oriented Neck: supple, non-tender Respiratory: clear to auscultation, normal air movement Cardiovascular: regular rate and rhythm, nl pulses Gastrointestinal: soft, nl liver, spleen, non-tender Extremities: other (Right upper extremity non-mobile) Results Result Diagram: 07/12/18 0656 07/12/18 0656 Results 24hrs Laboratory Tests Test 07/11/18 17:39 07/11/18 20:45 07/12/18 06:56 07/12/18 06:59 Bedside Glucose 226 H 256 H White Blood Count 6.7 Red Blood Count 4.21 Hemoglobin 10.4 L Hematocrit 35.1 L Mean Corpuscular 83.4 Volume Mean Corpuscular 24.7 L Hemoglobin Mean Corpuscular 29.6 L Hemoglobin Concent Red Cell 17.5 H Distribution Width Platelet Count 541 #H Mean Platelet Volume 9.9 Immature 2.800 H Granulocytes % Neutrophils % 68.2 Lymphocytes % 17.7 Monocytes % 8.0 Eosinophils % 2.1 Basophils % 1.2 Nucleated Red Blood 0.0 Cells % Immature 0.190 H Granulocytes # Neutrophils # 4.6 Lymphocytes # 1.2 Monocytes # 0.5 Eosinophils # 0.1 Basophils # 0.1 Nucleated Red Blood 0.0 Cells # Sodium Level 141 Potassium Level 5.2 H Chloride Level 105 Carbon Dioxide Level 25 Anion Gap 11 Blood Urea Nitrogen 24 H Creatinine 1.20 H Est Glomerular Filtrat Rate mL/min Glucose Level 207 Calcium Level 10.1 Total Bilirubin 0.1 L Direct Bilirubin 0.00 Indirect Bilirubin 0.1 Aspartate Amino 24 Transf (AST/SGOT) Alanine 18 Aminotransferase (AL T/SGPT) Alkaline Phosphatase 141 H Total Protein 6.6 Albumin 3.7 Globulin 2.90 Albumin/Globulin 1.27 Ratio Prothrombin Time 28.3 H Prothrombin Time 2.2 Ratio INR International 2.65 Normalized Ratio Test 07/12/18 07:52 07/12/18 09:59 07/12/18 12:13 Bedside Glucose 230 H 168 96 Medications Medication Current Medications Acetaminophen (Tylenol Tab) 650 mg Q4H PRN PO MILD PAIN(1-3)OR ELEVATED TEMP Last administered on 07/12/18 08:40; Admin Dose 650 MG; Start 07/07/18 at 00:00 Bisacodyl (Dulcolax Supp) 10 mg DAILY PRN NM CONSTIPATION; Start 07/07/18 at 00:00 Calcium Carbonate (Tums) 1,000 mg Q4H PRN PO Indigestion; Start 07/07/18 at 00:00 Citalopram Hydrobromide (Celexa) 40 mg HS PO Last administered on 07/11/18 2 0:25; Admin Dose 40 MG; Start 07/07/18 at 21:00 Fenofibrate (Tricor) 145 mg DAILY PO Last administered on 07/12/18 08:39; Admin Dose 145 MG; Start 07/07/18 at 09:00 Folic Acid (Folic Acid) 1 mg DAILY PO Last administered on 07/12/18 08:39; Admin Dose 1 MG; Start 07/07/18 at 09:00 Acetaminophen/ Hydrocodone Bitart ([place] (5/325)) 1 tab Q4H PRN PO Pain Last administered on 07/10/18 20:39; Admin Dose 1 TAB; Start 07/07/18 at 00:00 Insulin Aspart (Novolog Insulin Pen) 25 unit WITH MEALS SC Last administered on 07/12/18 08:04; Admin Dose 25 UNIT; Start 07/07/18 at 07:35 Lacosamide (Vimpat Liq) 150 mg BID PO Last administered on 07/12/18 08:38; Admin Dose 150 MG; Start 07/07/18 at 09:00 Lamotrigine (Lamictal) 25 mg HS PO Last administered on 07/11/18 20:38; Admin Dose 25 MG; Start 07/07/18 at 21:00 Levetiracetam (Keppra) 1,000 mg DAILY PO Last administered on 07/12/18 08:39; Admin Dose 1,000 MG; Start 07/07/18 at 09:00 Levetiracetam (Keppra) 1,500 mg HS PO Last administered on 07/11/18 20:25; Admin Dose 1,500 MG; Start 07/07/18 at 21:00 Levofloxacin (Levaquin) 500 mg DAILY@0600 PO Last administered on 07/12/18 07:05; Admin Dose 500 MG; Start 07/07/18 at 06:00 Lidocaine (Lidoderm) 1 patch DAILY TD Last administered on 07/12/18 08:38; Admin Dose 1 PATCH; Start 07/07/18 at 09:00 Metoprolol Succinate (Toprol Xl) 100 mg DAILY PO Last administered on 07/12/18 08:39; Admin Dose 100 MG; Start 07/07/18 at 09:00 Ondansetron HCl (Zofran Tab) 4 mg Q6H PRN PO NAUSEA AND/OR VOMITING; Start 07/07/18 at 00:00 Pantoprazole (Protonix Tab) 40 mg DAILY@06 PO Last administered on 07/12/18 07:05; Admin Dose 40 MG; Start 07/07/18 at 06:00 Metformin HCl (Glucophage) 500 mg WITH BREAKFAST PO Last administered on 07/12/18 08:05; Admin Dose 500 MG; Start 07/07/18 at 07:35 Benazepril HCl (Lotensin) 20 mg HS PO Last administered on 07/11/18 20:34; Admin Dose 20 MG; Start 07/07/18 at 21:00 Warfarin Sodium (Coumadin) 3 mg DAILY@1700 PO Last administered on 07/10/18 17:34; Admin Dose 3 MG; Start 07/07/18 at 17:00 Melatonin (Melatonin) 0.5 mg HS PRN PO Insomnia Last administered on 07/10/18 20:46; Admin Dose 0.5 MG; Start 07/07/18 at 00:30 Insulin Aspart (Novolog Insulin Pen) NOVOLOG *MODERATE* ALGORITHM WITH MEALS BEDTIME SC Last administered on 07/11/18 08:13; Admin Dose 6 UNIT; Start 07/07/18 at 07:35 Miscellaneous Information 1 ea NOTE XX ; Start 07/07/18 at 01:00 Glucose (Glutose) 15 gm Q15M PRN PO DECREASED GLUCOSE; Start 07/07/18 at 01:00 Glucose (Glutose) 22.5 gm Q15M PRN PO DECREASED GLUCOSE; Start 07/07/18 at 01:00 Dextrose (D50w Syringe) 25 ml Q15M PRN IV DECREASED GLUCOSE; Start 07/07/18 at 01:00 Dextrose (D50w Syringe) 50 ml Q15M PRN IV DECREASED GLUCOSE; Start 07/07/18 at 01:00 Glucagon (Glucagen) 1 mg Q15M PRN IM DECREASED GLUCOSE; Start 07/07/18 at 01:00 Glucose (Glutose) 15 gm Q15M PRN BUCCAL DECREASED GLUCOSE; Start 07/07/18 at 01:00 Rosuvastatin Calcium (Crestor) 20 mg HS PO Last administered on 07/11/18 20:25; Admin Dose 20 MG; Start 07/07/18 at 21:00 Docusate Sodium (Colace) 100 mg BID PO Last administered on 07/11/18 20:25; Admin Dose 100 MG; Start 07/07/18 at 09:00 Senna (Senokot) 1 tab HS PRN PO CONSTIPATION; Start 07/07/18 at 21:00 Magnesium Hydroxide (Milk Of Mag) 30 ml BID PRN PO CONSTIPATION; Start 07/07/18 at 03:30 Lactulose (Enulose) 20 gm DAILY PRN PO CONSTIPATION; Start 07/07/18 at 03:30 Amlodipine Besylate (Norvasc) 10 mg DAILY PO Last administered on 07/12/18 08:39; Admin Dose 10 MG; Start 07/08/18 at 09:00 Simethicone (Mylicon) 160 mg Q6H PRN PO DISTENSION/GAS/BLOATING Last administered on 07/11/18 14:54; Admin Dose 160 MG; Start 07/07/18 at 19:30 Insulin Glargine (Lantus) 10 units DAILY@2000 SC Last administered on 4/23/19at 20:55; Admin Dose 10 UNITS; Start 07/10/18 at 20:00 FRANSISCO GAMBOA MD Jul 12, 2018 13:25
[2018-07-12 14:00] VITALS: BP 115/78; PULSE 69; RESP 20
[2018-07-12] MEDS: WARFARIN 3 MG TAB PO SCH (17:38)
[2018-07-12 19:12] VITALS: BP 113/63; PULSE 67; RESP 18
[2018-07-12] MEDS: CITALOPRAM 20 MG TAB PO SCH (20:16)
[2018-07-12] MEDS: ROSUVASTATIN CALCIUM 40 MG TABLET PO SCH (20:17)
[2018-07-12] MEDS: BENAZEPRIL 20 MG TAB PO SCH ×2 (20:17→21:00)
[2018-07-12] MEDS: LEVETIRACETAM 750 MG TAB PO SCH (20:18)
[2018-07-12] MEDS: LAMOTRIGINE 25 MG TAB PO SCH (20:18)
[2018-07-12] MEDS: MELATONIN 3 MG TABLET PO PRN (20:26)
[2018-07-12] MEDS: INSULIN GLARGINE [LANTus] (100 UNITS/ML) SYG SC SCH (20:31)
[2018-07-13 02:00] VITALS: BP 133/60; PULSE 72; RESP 18
[2018-07-13] MEDS: PANTOPRAZOLE (EC) 40 MG TAB PO SCH (06:42)
[2018-07-13 07:00] VITALS: BP 138/65; PULSE 76; RESP 18
--- NOTE | 2018-07-13 07:16 | PN ---
DATE: 07/12/2018 PSYCHOLOGY -- INDIVIDUAL SESSION -- [id number] This is a followup on a patient who was seen last week. The patient reports that she is very depressed and very anxious. The patient is fearful that she will not be able to get better. The patient was able to talk about her feelings in regard to her overall feelings of depression. The patient has a caregiver who was there, and her granddaughter with the patient's permission was present during the session. I worked with the patient to try and work on her level of anxiety and depression. The patient seemed to be receptive and feel better after talking about her anxiety and depression. Dictated By: RAVINDER PERSAUD PHD SHELBIE/ANN MARIE Conf#: [id number] DID#: [id number] CC: SHIRA LU DO; TERESA PELLETIER MD;*EndCC* MTDD
[2018-07-13] MEDS: INSULIN ASPART [NOVOLOG] 3 ML PEN SC SCH ×8 (07:35→21:00)
[2018-07-13] MEDS: metFORMIN 500 MG TAB PO SCH ×2 (07:47→17:30)
[2018-07-13] MEDS: DOCUSATE SODIUM 100 MG CAP PO SCH ×2 (09:00→21:00)
--- NOTE | 2018-07-13 09:10 | PN ---
DATE: 07/13/2018 SUBJECTIVE: The patient is stable, no events overnight. No fevers, chills, nausea, or vomiting. OBJECTIVE: VITAL SIGNS: Blood pressure is 138/65, respirations 18, pulse 76, temperature 98.2. HEENT: Head is normocephalic. NECK: Supple. HEART: Regular rate. LUNGS: Show diminished breath sounds at the base. ABDOMEN: Soft, nontender to palpation. No rebound or guarding. EXTREMITIES: Negative for clubbing, cyanosis, no edema. DERMATOLOGIC: No rashes. MUSCULOSKELETAL: No joint effusion. NEUROLOGIC: No change in exam. MEDICATIONS: The patient's medications have been reviewed. LABORATORY DATA: From 07/13/2018 was reviewed. ASSESSMENT AND PLAN: 1. Acute encephalopathy, etiology is toxic metabolic, improved. Continue to monitor. 2. Mechanical fall with right humeral fracture. The patient is currently in a sling, nonweightbeari ng. Continue conservative management, pain control. 3. Sepsis secondary to urinary tract infection, repeat urine cultures have been negative. Continue to monitor. The patient is status post antibiotic therapy. 4. Acute kidney injury on top of chronic kidney disease. Etiology is felt to be secondary to hemody namics. Renal function is fluctuating. Continue to monitor and JANI inhibitor. 5. Anemia. Continue to monitor hemoglobin and hematocrit levels. 6. Mineral bone disorder, monitor calcium and phosphorus levels. 7. History of hypercoagulable state. The patient is currently on Coumadin. INR from 07/13/2018 is pending. 8. Sick sinus syndrome, status post pacemaker. 9. History of sagittal thrombosis. Continue current medical management. 10. Diabetes. Appreciate endocrinology's evaluation for further management. 11. Hypertension. Continue current blood pressure regimen. 12. Seizure disorder. Continue Keppra and Vimpat. 13. Dyslipidemia. Continue statin therapy. 14. Constipation. Continue current bowel regimen. 15. Gastrointestinal and deep vein thrombosis prophylaxis. Dictated By: NAYELI CHAUDHARI DO NR/NTS Conf#: [id number] DID#: [id number] CC: FRANSISCO GAMBOA MD; SHIRA LU DO; TERESA PELLETIER MD;*EndCC*
[2018-07-13] MEDS: FENOFIBRATE 145 MG TAB PO SCH (09:15)
[2018-07-13] MEDS: LEVETIRACETAM 500 MG TAB PO SCH (09:15)
[2018-07-13] MEDS: LACOSAMIDE (100 MG/10 ML PO SYR) PO SCH ×2 (09:15→20:30)
[2018-07-13] MEDS: AMLODIPINE 10 MG TAB PO SCH (09:16)
[2018-07-13] MEDS: FOLIC ACID 1 MG TAB PO SCH (09:16)
[2018-07-13] MEDS: METOPROLOL (XL) 100 MG TAB PO SCH (09:16)
[2018-07-13] MEDS: LIDOCAINE 5% PATCH TD SCH (09:19)
[2018-07-13] MEDS: ACETAMINOPHEN 325 MG TAB PO PRN ×2 (09:24→20:26)
--- NOTE | 2018-07-13 12:41 | PN ---
Date/Time of Note Date/Time of Note DATE: 07/13/18 TIME: 12:41 Subjective No new complaints Objective Vital Signs Date Temp Pulse Resp B/P (MAP) Pulse Ox O2 O2 Flow FiO2 Time Delivery Rate 07/13/18 98.2 76 18 138/65 94 Room Air 07:00 (89) Intake and Output 07/12/18 07/12/18 07/13/18 1515:00 23:00 07:00 IntakeIntake Total 200 ml 200 ml BalanceBalance 200 ml 200 ml Exam pulm-cta mod transfer mod ambulation Results/Medications Result Diagram: 07/13/18 0618 07/13/18 0617 Results 24 hrs Laboratory Tests Test 07/12/18 14:02 07/12/18 17:21 07/12/18 20:15 07/13/18 01:46 Urine Color YELLOW Urine Clarity SLIGHTLY CLOUDY A Urine pH 5.0 Urine Specific 1.018 [place] Urine Ketones NEGATIVE Urine Nitrite NEGATIVE Urine Bilirubin NEGATIVE Urine NEGATIVE Urobilinogen Urine Leukocyte TRACE A Esterase Urine Microscopic 2 RBC Urine Microscopic 4 WBC Urine Squamous FEW Epithelial Cells Urine Hemoglobin NEGATIVE Urine Random 123.92 Creatinine Urine Random 44 Sodium Urine Glucose NEGATIVE Urine Total 6.0 Protein Bedside Glucose 235 H 212 212 Test 07/13/18 06:17 07/13/18 06:18 07/13/18 07:48 07/13/18 09:03 Sodium Level 139 Potassium Level 4.9 Chloride Level 105 Carbon Dioxide 26 Level Anion Gap 8 Blood Urea 34 H Nitrogen Creatinine 1.36 H Est Glomerular Filtrat Rate mL/min Glucose Level 187 Calcium Level 9.4 Phosphorus Level 3.3 Magnesium Level 1.8 White Blood Count 6.1 Red Blood Count 3.91 L Hemoglobin 9.9 L Hematocrit 32.9 L Mean Corpuscular 84.1 Volume Mean Corpuscular 25.3 L Hemoglobin Mean Corpuscular 30.1 L Hemoglobin Concen t Red Cell 17.4 H Distribution Width Platelet Count 438 H Mean Platelet 9.2 Volume Immature 2.000 H Granulocytes % Neutrophils % 65.6 Lymphocytes % 20.3 Monocytes % 8.9 Eosinophils % 2.0 Basophils % 1.2 Nucleated Red 0.0 Blood Cells % Immature 0.120 H Granulocytes # Neutrophils # 4.0 Lymphocytes # 1.2 Monocytes # 0.5 Eosinophils # 0.1 Basophils # 0.1 Nucleated Red 0.0 Blood Cells # Bedside Glucose 218 Prothrombin Time 26.8 H Prothrombin Time 2.1 Ratio INR International 2.47 Normalized Ratio Test 07/13/18 11:42 Bedside Glucose 150 Medications Current Medications Acetaminophen (Tylenol Tab) 650 mg Q4H PRN PO MILD PAIN(1-3)OR ELEVATED TEMP Last administered on 07/13/18 09:24; Admin Dose 650 MG; Start 07/07/18 at 00:00 Bisacodyl (Dulcolax Supp) 10 mg DAILY PRN [place] CONSTIPATION; Start 07/07/18 at 00:00 Calcium Carbonate (Tums) 1,000 mg Q4H PRN PO Indigestion; Start 07/07/18 at 00:00 Citalopram Hydrobromide (Celexa) 40 mg HS PO Last administered on 07/12/18 20:16; Admin Dose 40 MG; Start 07/07/18 at 21:00 Fenofibrate (Tricor) 145 mg DAILY PO Last administered on 07/13/18 09:15; Admin Dose 145 MG; Start 07/07/18 at 09:00 Folic Acid (Folic Acid) 1 mg DAILY PO Last administered on 07/13/18 09:16; Admin Dose 1 MG; Start 07/07/18 at 09:00 Acetaminophen/ Hydrocodone Bitart ([place] (5/325)) 1 tab Q4H PRN PO Pain Last administered on 07/10/18 20:39; Admin Dose 1 TAB; Start 07/07/18 at 00:00 Lacosamide (Vimpat Liq) 150 mg BID PO Last administered on 07/13/18 09:15; Admin Dose 150 MG; Start 07/07/18 at 09:00 Lamotrigine (Lamictal) 25 mg HS PO Last administered on 07/12/18 20:18; Admin Dose 25 MG; Start 07/07/18 at 21:00 Levetiracetam (Keppra) 1,000 mg DAILY PO Last administered on 07/13/18 09:15; Admin Dose 1,000 MG; Start 07/07/18 at 09:00 Levetiracetam (Keppra) 1,500 mg HS PO Last administered on 07/12/18 20:18; Admin Dose 1,500 MG; Start 07/07/18 at 21:00 Lidocaine (Lidoderm) 1 patch DAILY TD Last administered on 07/13/18 09:19; Admin Dose 1 PATCH; Start 07/07/18 at 09:00 Metoprolol Succinate (Toprol Xl) 100 mg DAILY PO Last administered on 07/13/18 09:16; Admin Dose 100 MG; Start 07/07/18 at 09:00 Ondansetron HCl (Zofran Tab) 4 mg Q6H PRN PO NAUSEA AND/OR VOMITING; Start 07/07/18 at 00:00 Pantoprazole (Protonix Tab) 40 mg DAILY@06 PO Last administered on 07/13/18 06:42; Admin Dose 40 MG; Start 07/07/18 at 06:00 Benazepril HCl (Lotensin) 20 mg HS PO Last administered on 07/11/18 20:34; Admin Dose 20 MG; Start 07/07/18 at 21:00 Warfarin Sodium (Coumadin) 3 mg DAILY@1700 PO Last administered on 07/12/18 17:38; Admin Dose 3 MG; Start 07/07/18 at 17:00 Melatonin (Melatonin) 0.5 mg HS PRN PO Insomnia Last administered on 07/12/18 20:26; Admin Dose 0.5 MG; Start 07/07/18 at 00:30 Insulin Aspart (Novolog Insulin Pen) NOVOLOG *MODERATE* ALGORITHM WITH MEALS BEDTIME SC Last administered on 07/12/18 20:33; Admin Dose 1 UNIT; Start 07/07/18 at 07:35 Miscellaneous Information 1 ea NOTE XX ; Start 07/07/18 at 01:00 Glucose (Glutose) 15 gm Q15M PRN PO DECREASED GLUCOSE; Start 07/07/18 at 01:00 Glucose (Glutose) 22.5 gm Q15M PRN PO DECREASED GLUCOSE; Start 07/07/18 at 01:00 Dextrose (D50w Syringe) 25 ml Q15M PRN IV DECREASED GLUCOSE; Start 07/07/18 at 01:00 Dextrose (D50w Syringe) 50 ml Q15M PRN IV DECREASED GLUCOSE; Start 07/07/18 at 01:00 Glucagon (Glucagen) 1 mg Q15M PRN IM DECREASED GLUCOSE; Start 07/07/18 at 01:00 Glucose (Glutose) 15 gm Q15M PRN BUCCAL DECREASED GLUCOSE; Start 07/07/18 at 01:00 Rosuvastatin Calcium (Crestor) 20 mg HS PO Last administered on 07/12/18 20:17; Admin Dose 20 MG; Start 07/07/18 at 21:00 Docusate Sodium (Colace) 100 mg BID PO Last administered on 07/12/18 20:17; A dmin Dose 100 MG; Start 07/07/18 at 09:00 Senna (Senokot) 1 tab HS PRN PO CONSTIPATION; Start 07/07/18 at 21:00 Magnesium Hydroxide (Milk Of Mag) 30 ml BID PRN PO CONSTIPATION; Start 07/07/18 at 03:30 Lactulose (Enulose) 20 gm DAILY PRN PO CONSTIPATION; Start 07/07/18 at 03:30 Amlodipine Besylate (Norvasc) 10 mg DAILY PO Last administered on 07/13/18 09:16; Admin Dose 10 MG; Start 07/08/18 at 09:00 Simethicone (Mylicon) 160 mg Q6H PRN PO DISTENSION/GAS/BLOATING Last administered on 07/11/18at 14:54; Admin Dose 160 MG; Start 07/07/18 at 19:30 Insulin Aspart (Novolog Insulin Pen) 22 unit WITH MEALS SC Last administered on 07/13/18 12:08; Admin Dose 22 UNIT; Start 07/12/18 at 17:35 Insulin Glargine (Lantus) 15 units DAILY@2000 SC Last administered on 07/12/18 20:31; Admin Dose 15 UNITS; Start 07/12/18 at 20:00 Metformin HCl (Glucophage) 500 mg AC BREAKFAST DINNER PO Last administered on 07/13/18 07:47; Admin Dose 500 MG; Start 07/12/18 at 17:05 Assessment/Plan Additional Assessment/Plan Rehab- Toxic metabolic encephalopathy superimposed on history of CVA with residual right upper extremity weakness. Continue rehab therapies Status post fall with right upper extremity fracture, being managed conservatively. Seizure disorder. Diabetes mellitus type 2 with labile blood sugars. Hypertension. Hyperlipidemia. History of hypercoagulable state. History of arrhythmia, sick sinus syndrome and pacemaker placement. Status post sepsis and urinary tract infection. Acute on chronic kidney injury. TERESA PELLETIER MD Jul 13, 2018 12:41
[2018-07-13 14:00] VITALS: BP 90/46; PULSE 70; RESP 18
[2018-07-13] MEDS: WARFARIN 3 MG TAB PO SCH (17:30)
--- NOTE | 2018-07-13 17:34 | CONS ---
Assessment/Plan Assessment/Plan Problems: (1) Diabetes mellitus type 2 in nonobese Status: Chronic Comment: I will have the pharmacy folder pulsing procedure on patient brought medications. She may then start administration of Trulicity once a week. This will heighten the potency of the insulin she is receiving and therefore I will not increase the insulin as I expect her sugars will come down with the a dditional GLP-1 medication. Consultation Date/Type/Reason Admit Date/Time Jul 06, 2018 at 19:47 Initial Consult Date 07/12/18 Type of Consult Endocrinology Reason for Consultation Diabetes mellitus type 2 on GLP-1 and insulin therapy at home with metformin Requesting Provider: NAYELI CHAUDHARI DO Date/Time of Note DATE: 07/13/18 TIME: 17:33 24 HR Interval Summary Free Text/Dictation Patient's family has brought in her Trulicity medication from home. Patient would like to start Detailed Summary Endocrine: no complaints Exam/Review of Systems Exam Vitals Vital Signs Date Temp Pulse Resp B/P (MAP) Pulse Ox O2 O2 Flow FiO2 Time Delivery Rate 07/13/18 98.3 70 18 90/46 (61) 97 Room Air 14:00 Intake and Output 07/12/18 07/12/18 07/13/18 1414:59 22:59 06:59 IntakeIntake Total 200 ml 200 ml BalanceBalance 200 ml 200 ml Constitutional: alert, oriented Respiratory: clear to auscultation, normal air movement Gastrointestinal: soft, nl liver, spleen, non-tender Results Result Diagram: 07/13/18 0618 07/13/18 0617 Results 24hrs Laboratory Tests Test 07/12/18 20:15 07/13/18 01:46 07/13/18 06:17 07/13/18 06:18 Bedside Glucose 212 212 Sodium Level 139 Potassium Level 4.9 Chloride Level 105 Carbon Dioxide Level 26 Anion Gap 8 Blood Urea Nitrogen 34 H Creatinine 1.36 H Est Glomerular Filtrat Rate mL/min Glucose Level 187 Calcium Level 9.4 Phosphorus Level 3.3 Magnesium Level 1.8 White Blood Count 6.1 Red Blood Count 3.91 L Hemoglobin 9.9 L Hematocrit 32.9 L Mean Corpuscular 84.1 Volume Mean Corpuscular 25.3 L Hemoglobin Mean Corpuscular 30.1 L Hemoglobin Concent Red Cell 17.4 H Distribution Width Platelet Count 438 H Mean Platelet Volume 9.2 Immature 2.000 H Granulocytes % Neutrophils % 65.6 Lymphocytes % 20.3 Monocytes % 8.9 Eosinophils % 2.0 Basophils % 1.2 Nucleated Red Blood 0.0 Cells % Immature 0.120 H Granulocytes # Neutrophils # 4.0 Lymphocytes # 1.2 Monocytes # 0.5 Eosinophils # 0.1 Basophils # 0.1 Nucleated Red Blood 0.0 Cells # Test 07/13/18 07:48 07/13/18 09:03 07/13/18 11:42 07/13/18 17:29 Bedside Glucose 218 150 135 Prothrombin Time 26.8 H Prothrombin Time 2.1 Ratio INR International 2.47 Normalized Ratio Medications Medication Current Medications Acetaminophen (Tylenol Tab) 650 mg Q4H PRN PO MILD PAIN(1-3)OR ELEVATED TEMP Last administered on 07/13/18 09:24; Admin Dose 650 MG; Start 07/07/18 at 00:00 Bisacodyl (Dulcolax Supp) 10 mg DAILY PRN [place] CONSTIPATION; Start 07/07/18 at 00:00 Calcium Carbonate (Tums) 1,000 mg Q4H PRN PO Indigestion; Start 07/07/18 at 00:00 Citalopram Hydrobromide (Celexa) 40 mg HS PO Last administered on 07/12/18 20:16; Admin Dose 40 MG; Start 07/07/18 at 21:00 Fenofibrate (Tricor) 145 mg DAILY PO Last administered on 07/13/18 09:15; Admi n Dose 145 MG; Start 07/07/18 at 09:00 Folic Acid (Folic Acid) 1 mg DAILY PO Last administered on 07/13/18 09:16; Admin Dose 1 MG; Start 07/07/18 at 09:00 Acetaminophen/ Hydrocodone Bitart ([place] (5/325)) 1 tab Q4H PRN PO Pain Last administered on 07/10/18 20:39; Admin Dose 1 TAB; Start 07/07/18 at 00:00 Lacosamide (Vimpat Liq) 150 mg BID PO Last administered on 07/13/18 09:15; Admin Dose 150 MG; Start 07/07/18 at 09:00 Lamotrigine (Lamictal) 25 mg HS PO Last administered on 07/12/18 20:18; Admin Dose 25 MG; Start 07/07/18 at 21:00 Levetiracetam (Keppra) 1,000 mg DAILY PO Last administered on 07/13/18 09:15; Admin Dose 1,000 MG; Start 07/07/18 at 09:00 Levetiracetam (Keppra) 1,500 mg HS PO Last administered on 07/12/18 20:18; Admin Dose 1,500 MG; Start 07/07/18 at 21:00 Lidocaine (Lidoderm) 1 patch DAILY TD Last administered on 07/13/18 09:19; Admin Dose 1 PATCH; Start 07/07/18 at 09:00 Metoprolol Succinate (Toprol Xl) 100 mg DAILY PO Last administered on 07/13/18 09:16; Admin Dose 100 MG; Start 07/07/18 at 09:00 Ondansetron HCl (Zofran Tab) 4 mg Q6H PRN PO NAUSEA AND/OR VOMITING; Start 07/07/18 at 00:00 Pantoprazole (Protonix Tab) 40 mg DAILY@06 PO Last administered on 07/13/18 06:42; Admin Dose 40 MG; Start 07/07/18 at 06:00 Benazepril HCl (Lotensin) 20 mg HS PO Last administered on 07/11/18 20:34; Admin Dose 20 MG; Start 07/07/18 at 21:00 Warfarin Sodium (Coumadin) 3 mg DAILY@1700 PO Last administered on 07/12/18 17:38; Admin Dose 3 MG; Start 07/07/18 at 17:00 Melatonin (Melatonin) 0.5 mg HS PRN PO Insomnia Last administered on 07/12/18 20:26; Admin Dose 0.5 MG; Start 07/07/18 at 00:30 Insulin Aspart (Novolog Insulin Pen) NOVOLOG *MODERATE* ALGORITHM WITH MEALS BEDTIME SC Last administered on 07/12/18 20:33; Admin Dose 1 UNIT; Start 07/07/18 at 07:35 Miscellaneous Information 1 ea NOTE XX ; Start 07/07/18 at 01:00 Glucose (Glutose) 15 gm Q15M PRN PO DECREASED GLUCOSE; Start 07/07/18 at 01:00 Glucose (Glutose) 22.5 gm Q15M PRN PO DECREASED GLUCOSE; Start 07/07/18 at 01:00 Dextrose (D50w Syringe) 25 ml Q15M PRN IV DECREASED GLUCOSE; Start 07/07/18 at 01:00 Dextrose (D50w Syringe) 50 ml Q15M PRN IV DECREASED GLUCOSE; Start 07/07/18 at 01:00 Glucagon (Glucagen) 1 mg Q15M PRN IM DECREASED GLUCOSE; Start 07/07/18 at 01:00 Glucose (Glutose) 15 gm Q15M PRN BUCCAL DECREASED GLUCOSE; Start 07/07/18 at 01:00 Rosuvastatin Calcium (Crestor) 20 mg HS PO Last administered on 07/12/18 20:17; Admin Dose 20 MG; Start 07/07/18 at 21:00 Docusate Sodium (Colace) 100 mg BID PO Last administered on 07/12/18 20:17; Admin Dose 100 MG; Start 07/07/18 at 09:00 Senna (Senokot) 1 tab HS PRN PO CONSTIPATION; Start 07/07/18 at 21:00 Magnesium Hydroxide (Milk Of Mag) 30 ml BID PRN PO CONSTIPATION; Start 07/07/18 at 03:30 Lactulose (Enulose) 20 gm DAILY PRN PO CONSTIPATION; Start 07/07/18 at 03:30 Amlodipine Besylate (Norvasc) 10 mg DAILY PO Last administered on 07/13/18 09:16; Admin Dose 10 MG; Start 07/08/18 at 09:00 Simethicone (Mylicon) 160 mg Q6H PRN PO DISTENSION/GAS/BLOATING Last administered on 07/11/18at 14:54; Admin Dose 160 MG; Start 07/07/18 at 19:30 Insulin Aspart (Novolog Insulin Pen) 22 unit WITH MEALS SC Last administered on 07/13/18 12:08; Admin Dose 22 UNIT; Start 07/12/18 at 17:35 Insulin Glargine (Lantus) 15 units DAILY@2000 SC Last administered on 07/12/18 20:31; Admin Dose 15 UNITS; Start 07/12/18 at 20:00 Metformin HCl (Glucophage) 500 mg AC BREAKFAST DINNER PO Last administered on 07/13/18at 07:47; Admin Dose 500 MG; Start 07/12/18 at 17:05 FRANSISCO GAMBOA MD Jul 13, 2018 17:34
[2018-07-13 20:03] VITALS: BP 120/60; PULSE 68; RESP 18
[2018-07-13] MEDS: LEVETIRACETAM 750 MG TAB PO SCH (20:26)
[2018-07-13] MEDS: CITALOPRAM 20 MG TAB PO SCH (20:27)
[2018-07-13] MEDS: ROSUVASTATIN CALCIUM 40 MG TABLET PO SCH (20:27)
[2018-07-13] MEDS: BENAZEPRIL 20 MG TAB PO SCH (20:29)
[2018-07-13] MEDS: LAMOTRIGINE 25 MG TAB PO SCH (20:29)
[2018-07-13] MEDS: MELATONIN 3 MG TABLET PO PRN (20:52)
[2018-07-13] MEDS: INSULIN GLARGINE [LANTus] (100 UNITS/ML) SYG SC SCH (20:53)
[2018-07-14] MEDS: PANTOPRAZOLE (EC) 40 MG TAB PO SCH (06:18)
[2018-07-14 07:30] VITALS: BP 133/63; PULSE 71; RESP 18
[2018-07-14] MEDS: INSULIN ASPART [NOVOLOG] 3 ML PEN SC SCH ×7 (07:35→20:57)
[2018-07-14] MEDS: metFORMIN 500 MG TAB PO SCH ×3 (08:33→17:48)
--- NOTE | 2018-07-14 08:43 | CONS ---
Assessment/Plan Assessment/Plan Problems: (1) Diabetes mellitus type 2 in nonobese Status: Chronic Comment: Sugars coming under fair control. Her GLP-1 was held at the discretion of the staff here. Attempting to elucidate more details (2) Dyslipidemia associated with type 2 diabetes mellitus Status: Chronic Comment: Stable on medications (3) Essential hypertension Status: Chronic Comment: Transition more JANI less dihydropyridine calcium channel bill Consultation Date/Type/Reason Admit Date/Time Jul 06, 2018 at 19:47 Initial Consult Date 07/12/18 Type of Consult Endocrinology Reason for Consultation Diabetes mellitus type II with inadequate control; hypertension; mixed hyperlipidemia Requesting Provider: NAYELI CHAUDHARI DO Date/Time of Note DATE: 07/14/18 TIME: 08:42 24 HR Interval Summary Free Text/Dictation Patient reports that she is doing okay although she did not get her Trulicity yesterday, she reports she was advised to send the medicine back home with her family Constitutional: no complaints Detailed Summary Endocrine: no complaints Exam/Review of Systems Exam Vitals Vital Signs Date Temp Pulse Resp B/P (MAP) Pulse Ox O2 O2 Flow FiO2 Time Delivery Rate 07/14/18 98.1 71 18 133/63 96 Room Air 07:30 (86) Intake and Output 07/13/18 07/13/18 07/14/18 1515:00 23:00 07:00 IntakeIntake Total 750 ml 1200 ml OutputOutput Total 700 ml 200 ml BalanceBalance 750 ml 500 ml -200 ml Constitutional: alert, oriented Respiratory: clear to auscultation, normal air movement Cardiovascular: regular rate and rhythm, nl pulses Results Result Diagram: 07/13/18 0618 07/14/18 0715 Results 24hrs Laboratory Tests Test 07/13/18 09:03 07/13/18 11:42 07/13/18 17:29 07/13/18 20:23 Prothrombin Time 26.8 H Prothrombin Time 2.1 Ratio INR International 2.47 Normalized Ratio Bedside Glucose 150 135 128 Test 07/14/18 07:15 07/14/18 08:01 Prothrombin Time 28.3 H Prothrombin Time 2.2 Ratio INR International 2.65 Normalized Ratio Sodium Level 141 Potassium Level 5.0 Chloride Level 106 Carbon Dioxide Level 26 Anion Gap 9 Blood Urea Nitrogen 31 H Creatinine 1.32 H Est Glomerular Filtrat Rate mL/min Glucose Level 162 Calcium Level 9.7 Bedside Glucose 178 Medications Medication Current Medications Acetaminophen (Tylenol Tab) 650 mg Q4H PRN PO MILD PAIN(1-3)OR ELEVATED TEMP Last administered on 07/13/18 20:26; Admin Dose 650 MG; Start 07/07/18 at 00:00 Bisacodyl (Dulcolax Supp) [address] CONSTIPATION Last administered on 07/13/18 17:32; Admin Dose 10 MG; Start 07/07/18 at 00:00 Calcium Carbonate (Tums) 1,000 mg Q4H PRN PO Indigestion; Start 07/07/18 at 00:00 Citalopram Hydrobromide (Celexa) 40 mg HS PO Last administered on 07/13/18 20:27; Admin Dose 40 MG; Start 07/07/18 at 21:00 Fenofibrate (Tricor) 145 mg DAILY PO Last administered on 07/13/18 09:15; Admin Dose 145 MG; Start 07/07/18 at 09:00 Folic Acid (Folic Acid) 1 mg DAILY PO Last administered on 07/13/18 09:16; Admin Dose 1 MG; Start 07/07/18 at 09:00 Acetaminophen/ Hydrocodone Bitart ([place] (5/325)) 1 tab Q4H PRN PO Pain Last administered on 07/10/18 20:39; Admin Dose 1 TAB; Start 07/07/18 at 00:00 Lacosamide (Vimpat Liq) 150 mg BID PO Last administered on 07/13/18 20:30; Admin Dose 150 MG; Start 07/07/18 at 09:00 Lamotrigine (Lamictal) 25 mg HS PO Last administered on 07/13/18 20:29; Admin Dose 25 MG; Start 07/07/18 at 21:00 Levetiracetam (Keppra) 1,000 mg DAILY PO Last administered on 07/13/18 09:15; Admin Dose 1,000 MG; Start 07/07/18 at 09:00 Levetiracetam (Keppra) 1,500 mg HS PO Last administered on 07/13/18 20:26; Admin Dose 1,500 MG; Start 07/07/18 at 21:00 Lidocaine (Lidoderm) 1 patch DAILY TD Last administered on 07/13/18 09:19; Admin Dose 1 PATCH; Start 07/07/18 at 09:00 Metoprolol Succinate (Toprol Xl) 100 mg DAILY PO Last administered on 07/13/18 09:16; Admin Dose 100 MG; Start 07/07/18 at 09:00 Ondansetron HCl (Zofran Tab) 4 mg Q6H PRN PO NAUSEA AND/OR VOMITING; Start 07/07/18 at 00:00 Pantoprazole (Protonix Tab) 40 mg DAILY@06 PO Last administered on 07/14/18 06:18; Admin Dose 40 MG; Start 07/07/18 at 06:00 Warfarin Sodium (Coumadin) 3 mg DAILY@1700 PO Last administered on 07/13/18 17:30; Admin Dose 3 MG; Start 07/07/18 at 17:00 Melatonin (Melatonin) 0.5 mg HS PRN PO Insomnia Last administered on 07/13/18 20:52; Admin Dose 0.5 MG; Start 07/07/18 at 00:30 Insulin Aspart (Novolog Insulin Pen) NOVOLOG *MODERATE* ALGORITHM WITH MEALS BEDTIME SC Last administered on 07/12/18 20:33; Admin Dose 1 UNIT; Start 07/07/18 at 07:35 Miscellaneous Information 1 ea NOTE XX ; Start 07/07/18 at 01:00 Glucose (Glutose) 15 gm Q15M PRN PO DECREASED GLUCOSE; Start 07/07/18 at 01:00 Glucose (Glutose) 22.5 gm Q15M PRN PO DECREASED GLUCOSE; Start 07/07/18 at 01:00 Dextrose (D50w Syringe) 25 ml Q15M PRN IV DECREASED GLUCOSE; Start 07/07/18 at 01:00 Dextrose (D50w Syringe) 50 ml Q15M PRN IV DECREASED GLUCOSE; Start 07/07/18 at 01:00 Glucagon (Glucagen) 1 mg Q15M PRN IM DECREASED GLUCOSE; Start 07/07/18 at 01:00 Glucose (Glutose) 15 gm Q15M PRN BUCCAL DECREASED GLUCOSE; Start 07/07/18 at 01:00 Rosuvastatin Calcium (Crestor) 20 mg HS PO Last administered on 07/13/18 20:27; Admin Dose 20 MG; Start 07/07/18 at 21:00 Docusate Sodium (Colace) 100 mg BID PO Last administered on 07/12/18 20:17; Admin Dose 100 MG; Start 07/07/18 at 09:00 Senna (Senokot) 1 tab HS PRN PO CONSTIPATION; Start 07/07/18 at 21:00 Magnesium Hydroxide (Milk Of Mag) 30 ml BID PRN PO CONSTIPATION; Start 07/07/18 at 03:30 Lactulose (Enulose) 20 gm DAILY PRN PO CONSTIPATION; Start 07/07/18 at 03:30 Simethicone (Mylicon) 160 mg Q6H PRN PO DISTENSION/GAS/BLOATING Last administered on 07/11/18 14:54; Admin Dose 160 MG; Start 07/07/18 at 19:30 Insulin Aspart (Novolog Insulin Pen) 22 unit WITH MEALS SC Last administered on 07/14/18 08:31; Admin Dose 22 UNIT; Start 07/12/18 at 17:35 Insulin Glargine (Lantus) 15 units DAILY@2000 SC Last administered on 07/13/18at 20:53; Admin Dose 15 UNITS; Start 07/12/18 at 20:00 Metformin HCl (Glucophage) 500 mg AC BREAKFAST DINNER PO Last administered on 07/14/18 08:33; Admin Dose 500 MG; Start 07/12/18 at 17:05 Miscellaneous Information (* Miscellaneous Pharmacy Order) The patient is on Trulic... ONCE XX ; Start 07/13/18 at 17:30 Non-Formulary Medication 1 ea Fr@1000 SC ; Start 07/14/18 at 10:00 Amlodipine Besylate (Norvasc) 5 mg DAILY PO ; Start 07/14/18 at 09:00; Status UNV Benazepril HCl (Lotensin) 40 mg HS PO ; Start 07/14/18 at 21:00; Status FRANSISCO ERVIN MD Jul 14, 2018 08:43
[2018-07-14] MEDS: DOCUSATE SODIUM 100 MG CAP PO SCH ×2 (09:00→20:50)
[2018-07-14] MEDS: ACETAMINOPHEN 325 MG TAB PO PRN ×2 (09:16→20:50)
[2018-07-14] MEDS: LEVETIRACETAM 500 MG TAB PO SCH (09:17)
[2018-07-14] MEDS: FENOFIBRATE 145 MG TAB PO SCH (09:17)
[2018-07-14] MEDS: LACOSAMIDE (100 MG/10 ML PO SYR) PO SCH ×2 (09:17→20:59)
[2018-07-14] MEDS: AMLODIPINE 5 MG TAB PO SCH (09:19)
[2018-07-14] MEDS: FOLIC ACID 1 MG TAB PO SCH (09:19)
[2018-07-14] MEDS: METOPROLOL (XL) 100 MG TAB PO SCH (09:20)
[2018-07-14] MEDS: LIDOCAINE 5% PATCH TD SCH (09:20)
--- NOTE | 2018-07-14 09:31 | PN ---
DATE: 07/14/2018 SUBJECTIVE: The patient is stable, no events overnight. No fevers, chills, nausea, vomiting. OBJECTIVE: VITAL SIGNS: Blood pressure is 133/63, pulse 71, respiration 18, temperature 98.1. HEENT: Head is normocephalic. NECK: Supple. HEART: Regular rate. LUNGS: Show diminished breath sounds at the base. ABDOMEN: Soft, nontender to palpation without rebound or guarding. EXTREMITIES: Negative for clubbing, cyanosis, no edema. DERMATOLOGIC: No rashes. MUSCULOSKELETAL: No joint effusion. NEUROLOGIC: No change in exam. MEDICATIONS: Have been reviewed. LABORATORY DATA: Has been reviewed. ASSESSMENT AND PLAN: 1. Acute encephalopathy, etiology is toxic metabolic. Mental status is improved. Continue to monit or. 2. Right humerus fracture. The patient is currently nonweightbearing in a supportive cast. Continu e to monitor, continue pain control. 3. Sepsis secondary to urinary tract infection. Patient completing antibiotic course. Cultures hav e been negative. 4. Acute kidney injury on top of chronic kidney disease. Etiology secondary to hemodynamics. The p atient's renal function is stabilized. Continue current treatment plans, supportive care, renally do se all meds. 5. Anemia. Continue to monitor hemoglobin and hematocrit levels. 6. Mineral bone disorder, monitor calcium and phosphorus levels. 7. History of hypercoagulable state. The patient is currently on Coumadin. INR is at goal. Contin ue current regimen. 8. Sick sinus syndrome, status post pacemaker. 9. Diabetes. Appreciate endocrinology's help with management. 10. Hypertension. Continue current blood pressure regimen. 11. Seizure disorder. Continue Keppra and Vimpat. 12. Dyslipidemia. Continue statin therapy. 13. Constipation. Continue bowel regimen. 14. Gastrointestinal and deep venous thrombosis prophylaxis. Dictated By: NAYELI CHAUDHARI DO NR/NTS Conf#: [id number] DID#: [id number] CC: TERESA PELLETIER MD;*EndCC*
[2018-07-14] MEDS: TRULICITY 0.75 MG/0.5 ML SC SCH (11:29)
--- NOTE | 2018-07-14 13:15 | PN ---
Date/Time of Note Date/Time of Note DATE: 07/14/18 TIME: 13:14 Subjective Reviewed daily goals with patient and PT present Objective Vital Signs Date Temp Pulse Resp B/P (MAP) Pulse Ox O2 O2 Flow FiO2 Time Delivery Rate 07/14/18 98.1 71 18 133/63 96 Room Air 07:30 (86) Intake and Output 07/13/18 07/13/18 07/14/18 1515:00 23:00 07:00 IntakeIntake Total 750 ml 1200 ml OutputOutput Total 700 ml 200 ml BalanceBalance 750 ml 500 ml -200 ml Exam pulm-cta mod ambulation 15 feet Results/Medications Result Diagram: 07/13/18 0618 07/14/18 0715 Results 24 hrs Laboratory Tests Test 07/13/18 17:29 07/13/18 20:23 07/14/18 07:15 07/14/18 08:01 Bedside Glucose 135 128 178 Prothrombin Time 28.3 H Prothrombin Time 2.2 Ratio INR International 2.65 Normalized Ratio Sodium Level 141 Potassium Level 5.0 Chloride Level 106 Carbon Dioxide Level 26 Anion Gap 9 Blood Urea Nitrogen 31 H Creatinine 1.32 H Est Glomerular Filtrat Rate mL/min Glucose Level 162 Calcium Level 9.7 Test 07/14/18 11:50 Bedside Glucose 93 Medications Current Medications Acetaminophen (Tylenol Tab) 650 mg Q4H PRN PO MILD PAIN(1-3)OR ELEVATED TEMP Last administered on 07/14/18at 09:16; Admin Dose 650 MG; Start 07/07/18 at 00:00 Bisacodyl (Dulcolax Supp) 10 mg DAILY PRN [place] CONSTIPATION Last administered on 07/13/18at 17:32; Admin Dose 10 MG; Start 07/07/18 at 00:00 Calcium Carbonate (Tums) 1,000 mg Q4H PRN PO Indigestion; Start 07/07/18 at 00:00 Citalopram Hydrobromide (Celexa) 40 mg HS PO Last administered on 07/13/18at 20:27; Admin Dose 40 MG; Start 07/07/18 at 21:00 Fenofibrate (Tricor) 145 mg DAILY PO Last administered on 07/14/18at 09:17; Admin Dose 145 MG; Start 07/07/18 at 09:00 Folic Acid (Folic Acid) 1 mg DAILY PO Last administered on 07/14/18 09:19; Admin Dose 1 MG; Start 07/07/18 at 09:00 Acetaminophen/ Hydrocodone Bitart ([place] (5/325)) 1 tab Q4H PRN PO Pain Last administered on 07/10/18 20:39; Admin Dose 1 TAB; Start 07/07/18 at 00:00 Lacosamide (Vimpat Liq) 150 mg BID PO Last administered on 07/14/18 09:17; Admin Dose 150 MG; Start 07/07/18 at 09:00 Lamotrigine (Lamictal) 25 mg HS PO Last administered on 07/13/18 20:29; Admin Dose 25 MG; Start 07/07/18 at 21:00 Levetiracetam (Keppra) 1,000 mg DAILY PO Last administered on 07/14/18 09:17; Admin Dose 1,000 MG; Start 07/07/18 at 09:00 Levetiracetam (Keppra) 1,500 mg HS PO Last administered on 07/13/18 20:26; Admin Dose 1,500 MG; Start 07/07/18 at 21:00 Lidocaine (Lidoderm) 1 patch DAILY TD Last administered on 07/14/18 09:20; Admin Dose 1 PATCH; Start 07/07/18 at 09:00 Metoprolol Succinate (Toprol Xl) 100 mg DAILY PO Last administered on 07/14/18 09:20; Admin Dose 100 MG; Start 07/07/18 at 09:00 Ondansetron HCl (Zofran Tab) 4 mg Q6H PRN PO NAUSEA AND/OR VOMITING; Start 07/07/18 at 00:00 Pantoprazole (Protonix Tab) 40 mg DAILY@06 PO Last administered on 07/14/18 06:18; Admin Dose 40 MG; Start 07/07/18 at 06:00 Warfarin Sodium (Coumadin) 3 mg DAILY@1700 PO Last administered on 07/13/18 17:30; Admin Dose 3 MG; Start 07/07/18 at 17:00 Melatonin (Melatonin) 0.5 mg HS PRN PO Insomnia Last administered on 07/13/18 20:52; Admin Dose 0.5 MG; Start 07/07/18 at 00:30 Insulin Aspart (Novolog Insulin Pen) NOVOLOG *MODERATE* ALGORITHM WITH MEALS BE DTIME SC Last administered on 07/12/18 20:33; Admin Dose 1 UNIT; Start 07/07/18 at 07:35 Miscellaneous Information 1 ea NOTE XX ; Start 07/07/18 at 01:00 Glucose (Glutose) 15 gm Q15M PRN PO DECREASED GLUCOSE; Start 07/07/18 at 01:00 Glucose (Glutose) 22.5 gm Q15M PRN PO DECREASED GLUCOSE; Start 07/07/18 at 01:00 Dextrose (D50w Syringe) 25 ml Q15M PRN IV DECREASED GLUCOSE; Start 07/07/18 at 01:00 Dextrose (D50w Syringe) 50 ml Q15M PRN IV DECREASED GLUCOSE; Start 07/07/18 at 01:00 Glucagon (Glucagen) 1 mg Q15M PRN IM DECREASED GLUCOSE; Start 07/07/18 at 01:00 Glucose (Glutose) 15 gm Q15M PRN BUCCAL DECREASED GLUCOSE; Start 07/07/18 at 01:00 Rosuvastatin Calcium (Crestor) 20 mg HS PO Last administered on 07/13/18at 20:27; Admin Dose 20 MG; Start 07/07/18 at 21:00 Docusate Sodium (Colace) 100 mg BID PO Last administered on 07/12/18 20:17; Admin Dose 100 MG; Start 07/07/18 at 09:00 Senna (Senokot) 1 tab HS PRN PO CONSTIPATION; Start 07/07/18 at 21:00 Magnesium Hydroxide (Milk Of Mag) 30 ml BID PRN PO CONSTIPATION; Start 07/07/18 at 03:30 Lactulose (Enulose) 20 gm DAILY PRN PO CONSTIPATION; Start 07/07/18 at 03:30 Simethicone (Mylicon) 160 mg Q6H PRN PO DISTENSION/GAS/BLOATING Last administered on 07/11/18at 14:54; Admin Dose 160 MG; Start 07/07/18 at 19:30 Insulin Aspart (Novolog Insulin Pen) 22 unit WITH MEALS SC Last administered on 07/14/18 08:31; Admin Dose 22 UNIT; Start 07/12/18 at 17:35 Insulin Glargine (Lantus) 15 units DAILY@2000 SC Last administered on 4/25/19at 20:53; Admin Dose 15 UNITS; Start 07/12/18 at 20:00 Metformin HCl (Glucophage) 500 mg AC BREAKFAST DINNER PO Last administered on 07/14/18at 08:33; Admin Dose 500 MG; Start 07/12/18 at 17:05 Miscellaneous Information (* Miscellaneous Pharmacy Order) The patient is on Trulic... ONCE XX ; Start 07/13/18 at 17:30 Non-Formulary Medication 1 ea Fr@1000 SC Last administered on 07/14/18at 11:29; Admin Dose 1 EA; Start 07/14/18 at 10:00 Amlodipine Besylate (Norvasc) 5 mg DAILY PO Last administered on 07/14/18at 09:19; Admin Dose 5 MG; Start 07/14/18 at 09:00 Benazepril HCl (Lotensin) 40 mg HS PO ; Start 07/14/18 at 21:00 Assessment/Plan Additional Assessment/Plan Rehab- Toxic metabolic encephalopathy superimposed on history of CVA with residual right upper extremity weakness. Continue rehab therapies and current patient/team goals Status post fall with right upper extremity fracture, being managed conservatively. Seizure disorder. Diabetes mellitus type 2 with labile blood sugars. Hypertension. Hyperlipidemia. History of hypercoagulable state. History of arrhythmia, sick sinus syndrome and pacemaker placement. Status post sepsis and urinary tract infection. Acute on chronic kidney injury. TERESA PELLETIER MD Jul 14, 2018 13:15
[2018-07-14 14:00] VITALS: BP 109/53; PULSE 71; RESP 20
[2018-07-14] MEDS: WARFARIN 3 MG TAB PO SCH (17:47)
[2018-07-14] MEDS: LEVETIRACETAM 750 MG TAB PO SCH (20:49)
[2018-07-14] MEDS: CITALOPRAM 20 MG TAB PO SCH (20:50)
[2018-07-14] MEDS: ROSUVASTATIN CALCIUM 40 MG TABLET PO SCH (20:50)
[2018-07-14] MEDS: LAMOTRIGINE 25 MG TAB PO SCH (20:51)
[2018-07-14] MEDS: MELATONIN 3 MG TABLET PO PRN (20:51)
[2018-07-14] MEDS: INSULIN GLARGINE [LANTus] (100 UNITS/ML) SYG SC SCH (20:57)
[2018-07-14] MEDS: BENAZEPRIL 40 MG TAB PO SCH (21:00)
[2018-07-14] MEDS: DIPHENHYDRAMINE 25 MG CAP PO PRN (23:05)
[2018-07-15] MEDS: PANTOPRAZOLE (EC) 40 MG TAB PO SCH (06:24)
[2018-07-15] MEDS: INSULIN ASPART [NOVOLOG] 3 ML PEN SC SCH ×7 (07:35→20:32)
[2018-07-15 08:00] VITALS: BP 129/66; PULSE 70; RESP 19
[2018-07-15] MEDS: metFORMIN 500 MG TAB PO SCH (08:06)
[2018-07-15] MEDS: METOPROLOL (XL) 100 MG TAB PO SCH (08:39)
[2018-07-15] MEDS: FOLIC ACID 1 MG TAB PO SCH (08:40)
[2018-07-15] MEDS: FENOFIBRATE 145 MG TAB PO SCH (08:40)
[2018-07-15] MEDS: AMLODIPINE 5 MG TAB PO SCH (08:40)
[2018-07-15] MEDS: LEVETIRACETAM 500 MG TAB PO SCH (08:41)
[2018-07-15] MEDS: LACOSAMIDE (100 MG/10 ML PO SYR) PO SCH ×2 (08:42→20:17)
[2018-07-15] MEDS: LIDOCAINE 5% PATCH TD SCH (08:44)
[2018-07-15] MEDS: DOCUSATE SODIUM 100 MG CAP PO SCH ×2 (08:48→20:12)
--- NOTE | 2018-07-15 09:37 | PN ---
DATE: 07/15/2018 SUBJECTIVE: Patient stable, no events. No events overnight. OBJECTIVE: VITAL SIGNS: Blood pressure is 109/53, respiration 20, pulse 71, temperature 97.6. HEENT: Head is normocephalic. NECK: Supple. HEART: Regular rate. LUNGS: Show diminished breath sounds at the base. ABDOMEN: Soft, nontender to palpation. No rebound or guarding. EXTREMITIES: Negative for clubbing, cyanosis, no edema. DERMATOLOGIC: No rashes. MUSCULOSKELETAL: No joint effusion. NEUROLOGIC: No change in exam. MEDICATIONS: The patient's medications have been reviewed. LABORATORY DATA: Has been reviewed. The patient's INR is pending. ASSESSMENT AND PLAN: 1. Acute encephalopathy, etiology is toxic metabolic. The patient's mental status is improved. Con tinue to monitor. 2. Right humeral fracture. Continue supportive care. Continue nonweightbearing status. 3. Sepsis secondary to urinary tract infection. The patient has completed antibiotic course. 4. Acute kidney injury on top of chronic kidney disease. Etiology is secondary to hemodynamics. Re nal function appears to be stabilizing. Continue current treatment plan. Continue supportive care a nd monitor closely on JANI inhibitor. 5. Anemia. Monitor hemoglobin and hematocrit levels. 6. Mineral bone disorder. Monitor calcium and phosphorus levels. 7. Hypercoagulable state. The patient's INR is currently at goal. Continue Coumadin and adjust as needed. 8. Sick sinus syndrome, status post pacemaker. 9. Diabetes. Continue current diabetic regimen. Appreciate endocrinology's help with management. 10. Hypertension. Continue current blood pressure regimen. 11. Seizure disorder. Continue Keppra and Vimpat. 12. Dyslipidemia. Continue statin therapy. 13. Constipation. Continue current bowel regimen. 14. Gastrointestinal and deep vein thrombosis prophylaxis. Dictated By: NAYELI CHAUDHARI DO NR/NTS Conf#: [id number] DID#: [id number] CC: SHIRA LU DO; TERESA PELLETIER MD; FRANSISCO GAMBOA MD;*End*
--- NOTE | 2018-07-15 12:36 | CONS ---
Assessment/Plan Assessment/Plan Problems: (1) Diabetes mellitus type 2 in nonobese Status: Chronic Comment: Proving control. We will go ahead and adjust the insulins on the metformin. Consultation Date/Type/Reason Admit Date/Time Jul 06, 2018 at 19:47 Initial Consult Date 07/12/18 Type of Consult Endocrinology Reason for Consultation Diabetes mellitus type II on a multiple drug regimen; hypertension; mixed hyperlipidemia Requesting Provider: NAYELI CHAUDHARI DO Date/Time of Note DATE: 07/15/18 TIME: 12:35 24 HR Interval Summary Free Text/Dictation Patient reports that she got her Trulicity yesterday and her sugars of started to come down Constitutional: no complaints Detailed Summary Endocrine: other (No hypoglycemia) Exam/Review of Systems Exam Vitals Vital Signs Date Temp Pulse Resp B/P (MAP) Pulse Ox O2 O2 Flow FiO2 Time Delivery Rate 07/14/18 97.6 71 20 109/53 97 Room Air 14:00 (71) Exam No change in physical exam Results Result Diagram: 07/13/18 0618 07/14/18 0715 Results 24hrs Laboratory Tests Test 07/14/18 17:35 07/14/18 20:47 07/15/18 07:50 07/15/18 09:01 Bedside Glucose 196 183 201 Prothrombin Time 28.7 H Prothrombin Time 2.2 Ratio INR International 2.70 Normalized Ratio Test 07/15/18 12:15 Bedside Glucose 75 Medications Medication Current Medications Acetaminophen (Tylenol Tab) 650 mg Q4H PRN PO MILD PAIN(1-3)OR ELEVATED TEMP Last administered on 07/14/18at 20:50; Admin Dose 650 MG; Start 07/07/18 at 00:00 Bisacodyl (Dulcolax Supp) 10 mg DAILY PRN [place] CONSTIPATION Last administered on 07/13/18at 17:32; Admin Dose 10 MG; Start 07/07/18 at 00:00 Calcium Carbonate (Tums) 1,000 mg Q4H PRN PO Indigestion; Start 07/07/18 at 00:00 Citalopram Hydrobromide (Celexa) 40 mg HS PO Last administered on 07/14/18at 20:50; Admin Dose 40 MG; Start 07/07/18 at 21:00 Fenofibrate (Tricor) 145 mg DAILY PO Last administered on 07/15/18 08:40; Admin Dose 145 MG; Start 07/07/18 at 09:00 Folic Acid (Folic Acid) 1 mg DAILY PO Last administered on 07/15/18 08:40; Admin Dose 1 MG; Start 07/07/18 at 09:00 Acetaminophen/ Hydrocodone Bitart ([place] (5/325)) 1 tab Q4H PRN PO Pain Last administered on 07/10/18 20:39; Admin Dose 1 TAB; Start 07/07/18 at 00:00 Lacosamide (Vimpat Liq) 150 mg BID PO Last administered on 07/15/18 08:42; Admin Dose 150 MG; Start 07/07/18 at 09:00 Lamotrigine (Lamictal) 25 mg HS PO Last administered on 07/14/18 20:51; Admin Dose 25 MG; Start 07/07/18 at 21:00 Levetiracetam (Keppra) 1,000 mg DAILY PO Last administered on 07/15/18 08:41; Admin Dose 1,000 MG; Start 07/07/18 at 09:00 Levetiracetam (Keppra) 1,500 mg HS PO Last administered on 07/14/18 20:49; Admin Dose 1,500 MG; Start 07/07/18 at 21:00 Lidocaine (Lidoderm) 1 patch DAILY TD Last administered on 07/15/18 08:44; Admin Dose 1 PATCH; Start 07/07/18 at 09:00 Metoprolol Succinate (Toprol Xl) 100 mg DAILY PO Last administered on 07/15/18 08:39; Admin Dose 100 MG; Start 07/07/18 at 09:00 Ondansetron HCl (Zofran Tab) 4 mg Q6H PRN PO NAUSEA AND/OR VOMITING; Start 07/07/18 at 00:00 Pantoprazole (Protonix Tab) 40 mg DAILY@06 PO Last administered on 07/15/18 06:24; Admin Dose 40 MG; Start 07/07/18 at 06:00 Warfarin Sodium (Coumadin) 3 mg DAILY@1700 PO Last administered on 07/14/18 17 :47; Admin Dose 3 MG; Start 07/07/18 at 17:00 Melatonin (Melatonin) 0.5 mg HS PRN PO Insomnia Last administered on 07/14/18 20:51; Admin Dose 0.5 MG; Start 07/07/18 at 00:30 Insulin Aspart (Novolog Insulin Pen) NOVOLOG *MODERATE* ALGORITHM WITH MEALS BEDTIME SC Last administered on 07/14/18 20:57; Admin Dose 1 UNIT; Start 07/07/18 at 07:35 Miscellaneous Information 1 ea NOTE XX ; Start 07/07/18 at 01:00 Glucose (Glutose) 15 gm Q15M PRN PO DECREASED GLUCOSE; Start 07/07/18 at 01:00 Glucose (Glutose) 22.5 gm Q15M PRN PO DECREASED GLUCOSE; Start 07/07/18 at 01:00 Dextrose (D50w Syringe) 25 ml Q15M PRN IV DECREASED GLUCOSE; Start 07/07/18 at 01:00 Dextrose (D50w Syringe) 50 ml Q15M PRN IV DECREASED GLUCOSE; Start 07/07/18 at 01:00 Glucagon (Glucagen) 1 mg Q15M PRN IM DECREASED GLUCOSE; Start 07/07/18 at 01:00 Glucose (Glutose) 15 gm Q15M PRN BUCCAL DECREASED GLUCOSE; Start 07/07/18 at 01:00 Rosuvastatin Calcium (Crestor) 20 mg HS PO Last administered on 07/14/18 20:50; Admin Dose 20 MG; Start 07/07/18 at 21:00 Docusate Sodium (Colace) 100 mg BID PO Last administered on 07/14/18 20:50; Admin Dose 100 MG; Start 07/07/18 at 09:00 Senna (Senokot) 1 tab HS PRN PO CONSTIPATION; Start 07/07/18 at 21:00 Magnesium Hydroxide (Milk Of Mag) 30 ml BID PRN PO CONSTIPATION; Start 07/07/18 at 03:30 Lactulose (Enulose) 20 gm DAILY PRN PO CONSTIPATION; Start 07/07/18 at 03:30 Simethicone (Mylicon) 160 mg Q6H PRN PO DISTENSION/GAS/BLOATING Last administered on 07/11/18 14:54; Admin Dose 160 MG; Start 07/07/18 at 19:30 Insulin Glargine (Lantus) 15 units DAILY@2000 SC Last administered on 07/14/18 20:57; Admin Dose 15 UNITS; Start 07/12/18 at 20:00 Metformin HCl (Glucophage) 500 mg AC BREAKFAST DINNER PO Last administered on 07/15/18at 08:06; Admin Dose 500 MG; Start 07/12/18 at 17:05 Miscellaneous Information (* Miscellaneous Pharmacy Order) The patient is on Trulic... ONCE XX ; Start 07/13/18 at 17:30 Non-Formulary Medication 1 ea Fr@1000 SC Last administered on 07/14/18at 11:29; Admin Dose 1 EA; Start 07/14/18 at 10:00 Amlodipine Besylate (Norvasc) 5 mg DAILY PO Last administered on 07/15/18at 08:40; Admin Dose 5 MG; Start 07/14/18 at 09:00 Benazepril HCl (Lotensin) 40 mg HS PO ; Start 07/14/18 at 21:00 Diphenhydramine HCl (Benadryl) 25 mg DAILY PRN PO ITCHING Last administered on 07/14/18at 23:05; Admin Dose 25 MG; Start 07/14/18 at 20:30 Insulin Aspart (Novolog Insulin Pen) 20 unit WITH MEALS SC ; Start 07/15/18 at 17:35; Status FRANSISCO ERVIN MD Jul 15, 2018 12:36
[2018-07-15 14:00] VITALS: BP 122/61; PULSE 67; RESP 18
[2018-07-15] MEDS: DIPHENHYDRAMINE 25 MG CAP PO PRN (15:08)
[2018-07-15] MEDS: WARFARIN 3 MG TAB PO SCH (18:35)
[2018-07-15] MEDS: ACETAMINOPHEN 325 MG TAB PO PRN (20:11)
[2018-07-15] MEDS: LEVETIRACETAM 750 MG TAB PO SCH (20:11)
[2018-07-15] MEDS: ROSUVASTATIN CALCIUM 40 MG TABLET PO SCH (20:12)
[2018-07-15] MEDS: CITALOPRAM 20 MG TAB PO SCH (20:12)
[2018-07-15] MEDS: BENAZEPRIL 40 MG TAB PO SCH (20:12)
[2018-07-15] MEDS: LAMOTRIGINE 25 MG TAB PO SCH (20:13)
[2018-07-15] MEDS: MELATONIN 3 MG TABLET PO PRN (20:13)
[2018-07-15] MEDS: INSULIN GLARGINE [LANTus] (100 UNITS/ML) SYG SC SCH (20:32)
[2018-07-15 20:51] VITALS: BP 122/59; PULSE 71; RESP 18
[2018-07-16] MEDS: PANTOPRAZOLE (EC) 40 MG TAB PO SCH (06:13)
[2018-07-16 08:00] VITALS: BP 142/65; PULSE 73
--- NOTE | 2018-07-16 08:10 | PN ---
Date/Time of Note Date/Time of Note DATE: 07/16/18 TIME: 08:10 Subjective Doing well Objective Vital Signs Date Temp Pulse Resp B/P (MAP) Pulse Ox O2 O2 Flow FiO2 Time Delivery Rate 07/15/18 98.0 71 18 122/59 98 Room Air 20:51 (80) Intake and Output 07/15/18 07/15/18 07/16/18 1515:00 23:00 07:00 IntakeIntake Total 600 ml BalanceBalance 600 ml Exam pulm-cta min 15 feet Results/Medications Result Diagram: 07/13/1818 07/14/18 0715 Results 24 hrs Laboratory Tests Test 07/15/18 09:01 07/15/18 12:15 07/15/18 14:02 07/15/18 17:39 Prothrombin Time 28.7 H Prothrombin Time 2.2 Ratio INR International 2.70 Normalized Ratio Bedside Glucose 75 97 219 Test 07/15/18 18:33 07/15/18 20:07 07/16/18 06:34 Bedside Glucose 257 H 227 H Prothrombin Time 33.2 H Prothrombin Time 2.6 Ratio INR International 3.25 Normalized Ratio Medications Current Medications Acetaminophen (Tylenol Tab) 650 mg Q4H PRN PO MILD PAIN(1-3)OR ELEVATED TEMP Last administered on 07/15/18 20:11; Admin Dose 650 MG; Start 07/07/18 at 00:00 Bisacodyl (Dulcolax Supp) 10 mg DAILY PRN [place] CONSTIPATION Last administered on 07/13/18at 17:32; Admin Dose 10 MG; Start 07/07/18 at 00:00 Calcium Carbonate (Tums) 1,000 mg Q4H PRN PO Indigestion; Start 07/07/18 at 00:00 Citalopram Hydrobromide (Celexa) 40 mg HS PO Last administered on 07/15/18 20:12; Admin Dose 40 MG; Start 07/07/18 at 21:00 Fenofibrate (Tricor) 145 mg DAILY PO Last administered on 07/15/18 08:40; Admin Dose 145 MG; Start 07/07/18 at 09:00 Folic Acid (Folic Acid) 1 mg DAILY PO Last administered on 07/15/18 08:40; Admin Dose 1 MG; Start 07/07/18 at 09:00 Acetaminophen/ Hydrocodone Bitart ([place] (5/325)) 1 tab Q4H PRN PO Pain Last administered on 07/10/18 20:39; Admin Dose 1 TAB; Start 07/07/18 at 00:00 Lacosamide (Vimpat Liq) 150 mg BID PO Last administered on 07/15/18 20:17; Admin Dose 150 MG; Start 07/07/18 at 09:00 Lamotrigine (Lamictal) 25 mg HS PO Last administered on 07/15/18 20:13; Admin Dose 25 MG; Start 07/07/18 at 21:00 Levetiracetam (Keppra) 1,000 mg DAILY PO Last administered on 07/15/18 08:41; Admin Dose 1,000 MG; Start 07/07/18 at 09:00 Levetiracetam (Keppra) 1,500 mg HS PO Last administered on 07/15/18 20:11; Admin Dose 1,500 MG; Start 07/07/18 at 21:00 Lidocaine (Lidoderm) 1 patch DAILY TD Last administered on 07/15/18 08:44; Admin Dose 1 PATCH; Start 07/07/18 at 09:00 Metoprolol Succinate (Toprol Xl) 100 mg DAILY PO Last administered on 07/15/18 08:39; Admin Dose 100 MG; Start 07/07/18 at 09:00 Ondansetron HCl (Zofran Tab) 4 mg Q6H PRN PO NAUSEA AND/OR VOMITING; Start 07/07/18 at 00:00 Pantoprazole (Protonix Tab) 40 mg DAILY@06 PO Last administered on 07/16/18 06:13; Admin Dose 40 MG; Start 07/07/18 at 06:00 Warfarin Sodium (Coumadin) 3 mg DAILY@1700 PO Last administered on 07/15/18 18:35; Admin Dose 3 MG; Start 07/07/18 at 17:00; Status Hold Melatonin (Melatonin) 0.5 mg HS PRN PO Insomnia Last administered on 07/15/18 20:13; Admin Dose 0.5 MG; Start 07/07/18 at 00:30 Insulin Aspart (Novolog Insulin Pen) NOVOLOG *MODERATE* ALGORITHM WITH MEALS BEDTIME SC Last administered on 4/26/19at 20:57; Admin Dose 1 UNIT; Start 07/07/18 at 07:35 Miscellaneous Information 1 ea NOTE XX ; Start 07/07/18 at 01:00 Glucose (Glutose) 15 gm Q15M PRN PO DECREASED GLUCOSE; Start 07/07/18 at 01:00 Glucose (Glutose) 22.5 gm Q15M PRN PO DECREASED GLUCOSE; Start 07/07/18 at 01:00 Dextrose (D50w Syringe) 25 ml Q15M PRN IV DECREASED GLUCOSE; Start 07/07/18 at 01:00 Dextrose (D50w Syringe) 50 ml Q15M PRN IV DECREASED GLUCOSE; Start 07/07/18 at 01:00 Glucagon (Glucagen) 1 mg Q15M PRN IM DECREASED GLUCOSE; Start 07/07/18 at 01:00 Glucose (Glutose) 15 gm Q15M PRN BUCCAL DECREASED GLUCOSE; Start 07/07/18 at 01:00 Rosuvastatin Calcium (Crestor) 20 mg HS PO Last administered on 07/15/18at 20:12; Admin Dose 20 MG; Start 07/07/18 at 21:00 Senna (Senokot) 1 tab HS PRN PO CONSTIPATION; Start 07/07/18 at 21:00 Magnesium Hydroxide (Milk Of Mag) 30 ml BID PRN PO CONSTIPATION; Start 07/07/18 at 03:30 Lactulose (Enulose) 20 gm DAILY PRN PO CONSTIPATION; Start 07/07/18 at 03:30 Simethicone (Mylicon) 160 mg Q6H PRN PO DISTENSION/GAS/BLOATING Last administered on 07/11/18at 14:54; Admin Dose 160 MG; Start 07/07/18 at 19:30 Miscellaneous Information (* Miscellaneous Pharmacy Order) The patient is on Trulic... ONCE XX ; Start 07/13/18 at 17:30 Non-Formulary Medication 1 ea Fr@1000 SC Last administered on 07/14/18at 11:29; Admin Dose 1 EA; Start 07/14/18 at 10:00 Amlodipine Besylate (Norvasc) 5 mg DAILY PO Last administered on 07/15/18at 08:40; Admin Dose 5 MG; Start 07/14/18 at 09:00 Benazepril HCl (Lotensin) 40 mg HS PO Last administered on 07/15/18at 20:12; Admin Dose 40 MG; Start 07/14/18 at 21:00 Diphenhydramine HCl (Benadryl) 25 mg DAILY PRN PO ITCHING Last administered on 07/15/18 15:08; Admin Dose 25 MG; Start 07/14/18 at 20:30 Insulin Aspart (Novolog Insulin Pen) 20 unit WITH MEALS SC Last administered on 07/15/18 18:45; Admin Dose 20 UNIT; Start 07/15/18 at 17:35 Docusate Sodium (Colace) 100 mg QHS PO Last administered on 07/15/18 20:12; Admin Dose 100 MG; Start 07/15/18 at 21:00 Insulin Glargine (Lantus) 14 units DAILY@2000 SC Last administered on 07/15/18 20:32; Admin Dose 14 UNITS; Start 07/15/18 at 20:00 Metformin HCl (Glucophage) 500 mg AC BREAKFAST PO ; Start 07/16/18 at 07:05 Assessment/Plan Additional Assessment/Plan Rehab- Toxic metabolic encephalopathy superimposed on history of CVA with residual right upper extremity weakness. Continue rehab therapies and current encouragement with patient/team goals Status post fall with right upper extremity fracture, being managed conservatively. Seizure disorder. Diabetes mellitus type 2 with labile blood sugars. Hypertension. Hyperlipidemia. History of hypercoagulable state. History of arrhythmia, sick sinus syndrome and pacemaker placement. Status post sepsis and urinary tract infection. Acute on chronic kidney injury. TERESA PELLETIER MD Jul 16, 2018 08:10
--- NOTE | 2018-07-16 08:21 | PN ---
DATE: 07/16/2018 SUBJECTIVE: The patient is stable, no events overnight. No fevers, chills, nausea, vomiting. OBJECTIVE: VITAL SIGNS: Show blood pressure 122/59, respiration 18, pulse 71, temperature 98.0. HEENT: Head is normocephalic. NECK: Supple. HEART: Regular rate. LUNGS: Show diminished breath sounds at the base. ABDOMEN: Soft, nontender to palpation without rebound or guarding. EXTREMITIES: Negative for clubbing, cyanosis, no edema. DERMATOLOGIC: No rashes. MUSCULOSKELETAL: No joint effusion. NEUROLOGIC: No change in exam. MEDICATIONS: The patient's medications have been reviewed. LABORATORY DATA: From 07/16/2018 was reviewed. ASSESSMENT AND PLAN: 1. Acute encephalopathy, etiology toxic metabolic. Mental status is improving. Continue to monitor . 2. Right humeral fracture. Continue supportive care, continue occupational therapy. 3. Sepsis secondary to urinary tract infection. The patient is completing antibiotic course. 4. Acute kidney injury on top of chronic kidney disease. Etiology is likely hemodynamics, questiona ble JANI inhibitor effect. Will continue to monitor renal function closely on JANI inhibitor. 5. Anemia. Monitor hemoglobin and hematocrit levels. 6. Mineral bone disorder, monitor calcium and phosphorus levels. 7. Hypercoagulable state. The patient's INR was reviewed. Will hold Coumadin today. Repeat INR in a.m. 8. Sick sinus syndrome, status post pacemaker. 9. Diabetes. Continue current diabetic regimen. Appreciate endocrinology's help with management. 10. Hypertension. Blood pressure medications were adjusted. Continue to monitor. 11. Seizure disorder. Continue Keppra and . 12. Dyslipidemia. Continue statin therapy. 13. Constipation. Continue current bowel regimen. 14. Gastrointestinal and deep venous thrombosis prophylaxis. Dictated By: NAYELI CHAUDHARI DO NR/NTS Conf#: [id number] DID#: [id number] CC: TERESA PELLETIER MD;*EndCC*
[2018-07-16] MEDS: AMLODIPINE 5 MG TAB PO SCH (09:00)
[2018-07-16] MEDS: LIDOCAINE 5% PATCH TD SCH (09:16)
[2018-07-16] MEDS: metFORMIN 500 MG TAB PO SCH (09:17)
[2018-07-16] MEDS: METOPROLOL (XL) 100 MG TAB PO SCH (09:17)
[2018-07-16] MEDS: FOLIC ACID 1 MG TAB PO SCH (09:17)
[2018-07-16] MEDS: FENOFIBRATE 145 MG TAB PO SCH (09:17)
[2018-07-16] MEDS: LEVETIRACETAM 500 MG TAB PO SCH (09:17)
[2018-07-16] MEDS: LACOSAMIDE (100 MG/10 ML PO SYR) PO SCH ×2 (09:18→20:19)
[2018-07-16] MEDS: INSULIN ASPART [NOVOLOG] 3 ML PEN SC SCH ×7 (09:20→20:19)
[2018-07-16] MEDS: ACETAMINOPHEN 325 MG TAB PO PRN ×3 (09:27→20:15)
--- NOTE | 2018-07-16 12:24 | CONS ---
Assessment/Plan Assessment/Plan Problems: (1) Diabetes mellitus type 2 in nonobese Status: Chronic Comment: Fair control. 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 (5) Toxic metabolic encephalopathy Status: Acute Comment: There is some residual loss of orientation. She is charming and able to cover it relatively well but there is some loss of capacity (6) Seizure disorder Status: Chronic Comment: Quiescent and controlled Consultation Date/Type/Reason Admit Date/Time Jul 06, 2018 at 19:47 Initial Consult Date 07/12/18 Type of Consult Endocrinology Reason for Consultation Diabetes mellitus type 2 Requesting Provider: NAYELI CHAUDHARI DO Date/Time of Note DATE: 07/16/18 TIME: 12:10 24 HR Interval Summary Free Text/Dictation Reports no new complaints. Wants explanation re Lantus version of glargine versus [place] version of Glargine again Constitutional: no complaints Detailed Summary Endocrine: no complaints Exam/Review of Systems Exam Vitals Vital Signs Date Temp Pulse Resp B/P (MAP) Pulse Ox O2 O2 Flow FiO2 Time Delivery Rate 07/16/18 98.3 73 142/65 97 Room Air 08:00 (90) 07/15/18 18 20:51 Intake and Output 07/15/18 07/15/18 07/16/18 1515:00 23:00 07:00 IntakeIntake Total 600 ml BalanceBalance 600 ml Constitutional: alert Neck: supple, non-tender Respiratory: clear to auscultation, normal air movement Cardiovascular: regular rate and rhythm, nl pulses Results Result Diagram: 07/13/18 0618 07/14/18 0715 Results 24hrs Laboratory Tests Test 07/15/18 12:15 07/15/18 14:02 07/15/18 17:39 07/15/18 18:33 Bedside Glucose 75 97 219 257 H Test 07/15/18 20:07 07/16/18 06:34 07/16/18 08:54 07/16/18 11:55 Bedside Glucose 227 H 231 H 133 Prothrombin Time 33.2 H Prothrombin Time 2.6 Ratio INR International 3.25 Normalized Ratio Medications Medication Current Medications Acetaminophen (Tylenol Tab) 650 mg Q4H PRN PO MILD PAIN(1-3)OR ELEVATED TEMP Last administered on 07/16/18 09:27; Admin Dose 650 MG; Start 07/07/18 at 00:00 Bisacodyl (Dulcolax Supp) 10 mg DAILY PRN [place] CONSTIPATION Last administered on 07/13/18 17:32; Admin Dose 10 MG; Start 07/07/18 at 00:00 Calcium Carbonate (Tums) 1,000 mg Q4H PRN PO Indigestion; Start 07/07/18 at 00:00 Citalopram Hydrobromide (Celexa) 40 mg HS PO Last administered on 07/15/18 20:12; Admin Dose 40 MG; Start 07/07/18 at 21:00 Fenofibrate (Tricor) 145 mg DAILY PO Last administered on 07/16/18 09:17; Admin Dose 145 MG; Start 07/07/18 at 09:00 Folic Acid (Folic Acid) 1 mg DAILY PO Last administered on 07/16/18 09:17; Admin Dose 1 MG; Start 07/07/18 at 09:00 Acetaminophen/ Hydrocodone Bitart ([place] (5/325)) 1 tab Q4H PRN PO Pain Last administered on 07/10/18 20:39; Admin Dose 1 TAB; Start 07/07/18 at 00:00 Lacosamide (Vimpat Liq) 150 mg BID PO Last administered on 07/16/18 09:18; Admin Dose 150 MG; Start 07/07/18 at 09:00 Lamotrigine (Lamictal) 25 mg HS PO Last administered on 07/15/18 20:13; Admin Dose 25 MG; Start 07/07/18 at 21:00 Levetiracetam (Keppra) 1,000 mg DAILY PO Last administered on 07/16/18 09:17; Admin Dose 1,000 MG; Start 07/07/18 at 09:00 Levetiracetam (Keppra) 1,500 mg HS PO Last administered on 07/15/18 20:11; Admin Dose 1,500 MG; Start 07/07/18 at 21:00 Lidocaine (Lidoderm) 1 patch DAILY TD Last administered on 07/16/18 09:16; Admin Dose 1 PATCH; Start 07/07/18 at 09:00 Metoprolol Succinate (Toprol Xl) 100 mg DAILY PO Last administered on 07/16/18 09:17; Admin Dose 100 MG; Start 07/07/18 at 09:00 Ondansetron HCl (Zofran Tab) 4 mg Q6H PRN PO NAUSEA AND/OR VOMITING; Start 07/07/18 at 00:00 Pantoprazole (Protonix Tab) 40 mg DAILY@06 PO Last administered on 07/16/18 06:13; Admin Dose 40 MG; Start 07/07/18 at 06:00 Warfarin Sodium (Coumadin) 3 mg DAILY@1700 PO Last administered on 07/15/18 18:35; Admin Dose 3 MG; Start 07/07/18 at 17:00; Status Hold Melatonin (Melatonin) 0.5 mg HS PRN PO Insomnia Last administered on 07/15/18 20:13; Admin Dose 0.5 MG; Start 07/07/18 at 00:30 Insulin Aspart (Novolog Insulin Pen) NOVOLOG *MODERATE* ALGORITHM WITH MEALS BEDTIME SC Last administered on 07/16/18 09:20; Admin Dose 6 UNIT; Start 07/07/18 at 07:35 Miscellaneous Information 1 ea NOTE XX ; Start 07/07/18 at 01:00 Glucose (Glutose) 15 gm Q15M PRN PO DECREASED GLUCOSE; Start 07/07/18 at 01:00 Glucose (Glutose) 22.5 gm Q15M PRN PO DECREASED GLUCOSE; Start 07/07/18 at 01:00 Dextrose (D50w Syringe) 25 ml Q15M PRN IV DECREASED GLUCOSE; Start 07/07/18 at 01:00 Dextrose (D50w Syringe) 50 ml Q15M PRN IV DECREASED GLUCOSE; Start 07/07/18 at 01:00 Glucagon (Glucagen) 1 mg Q15M PRN IM DECREASED GLUCOSE; Start 07/07/18 at 01:00 Glucose (Glutose) 15 gm Q15M PRN BUCCAL DECREASED GLUCOSE; Start 07/07/18 at 01:00 Rosuvastatin Calcium (Crestor) 20 mg HS PO Last administered on 07/15/18 20:12; Admin Dose 20 MG; Start 07/07/18 at 21:00 Senna (Senokot) 1 tab HS PRN PO CONSTIPATION; Start 07/07/18 at 21:00 Magnesium Hydroxide (Milk Of Mag) 30 ml BID PRN PO CONSTIPATION; Start 07/07/18 at 03:30 Lactulose (Enulose) 20 gm DAILY PRN PO CONSTIPATION; Start 07/07/18 at 03:30 Simethicone (Mylicon) 160 mg Q6H PRN PO DISTENSION/GAS/BLOATING Last administered on 07/11/18 14:54; Admin Dose 160 MG; Start 07/07/18 at 19:30 Miscellaneous Information (* Miscellaneous Pharmacy Order) The patient is on Trulic... ONCE XX ; Start 07/13/18 at 17:30 Non-Formulary Medication 1 ea Fr@1000 SC Last administered on 07/14/18 11:29; Admin Dose 1 EA; Start 07/14/18 at 10:00 Amlodipine Besylate (Norvasc) 5 mg DAILY PO Last administered on 07/15/18 08:40; Admin Dose 5 MG; Start 07/14/18 at 09:00 Benazepril HCl (Lotensin) 40 mg HS PO Last administered on 07/15/18 20:12; Admin Dose 40 MG; Start 07/14/18 at 21:00 Diphenhydramine HCl (Benadryl) 25 mg DAILY PRN PO ITCHING Last administered on 07/15/18 15:08; Admin Dose 25 MG; Start 07/14/18 at 20:30 Insulin Aspart (Novolog Insulin Pen) 20 unit WITH MEALS SC Last administered on 07/16/18 11:58; Admin Dose 20 UNIT; Start 07/15/18 at 17:35 Docusate Sodium (Colace) 100 mg QHS PO Last administered on 07/15/18 20:12; Admin Dose 100 MG; Start 07/15/18 at 21:00 Insulin Glargine (Lantus) 14 units DAILY@2000 SC Last administered on 07/15/18 20:32; Admin Dose 14 UNITS; Start 07/15/18 at 20:00 Metformin HCl (Glucophage) 500 mg AC BREAKFAST PO Last administered on 07/16/18 09:17; Admin Dose 500 MG; Start 07/16/18 at 07:05 FRANSISCO GAMBOA MD Jul 16, 2018 12:21
[2018-07-16] MEDS: DIPHENHYDRAMINE 25 MG CAP PO PRN (12:49)
[2018-07-16 20:00] VITALS: BP 118/57; PULSE 71; RESP 18
[2018-07-16] MEDS: LEVETIRACETAM 750 MG TAB PO SCH (20:14)
[2018-07-16] MEDS: DOCUSATE SODIUM 100 MG CAP PO SCH (20:16)
[2018-07-16] MEDS: ROSUVASTATIN CALCIUM 40 MG TABLET PO SCH (20:16)
[2018-07-16] MEDS: CITALOPRAM 20 MG TAB PO SCH (20:16)
[2018-07-16] MEDS: LAMOTRIGINE 25 MG TAB PO SCH (20:17)
[2018-07-16] MEDS: MELATONIN 3 MG TABLET PO PRN (20:17)
[2018-07-16] MEDS: INSULIN GLARGINE [LANTus] (100 UNITS/ML) SYG SC SCH (20:18)
[2018-07-16] MEDS: BENAZEPRIL 40 MG TAB PO SCH (20:33)
[2018-07-17] MEDS: PANTOPRAZOLE (EC) 40 MG TAB PO SCH (06:21)
[2018-07-17 08:00] VITALS: BP 135/64; PULSE 74; RESP 18
[2018-07-17] MEDS: LEVETIRACETAM 500 MG TAB PO SCH (08:13)
[2018-07-17] MEDS: metFORMIN 500 MG TAB PO SCH (08:13)
[2018-07-17] MEDS: FOLIC ACID 1 MG TAB PO SCH (08:14)
[2018-07-17] MEDS: LIDOCAINE 5% PATCH TD SCH (08:15)
[2018-07-17] MEDS: LACOSAMIDE (100 MG/10 ML PO SYR) PO SCH ×2 (08:15→20:07)
[2018-07-17] MEDS: FENOFIBRATE 145 MG TAB PO SCH (08:15)
[2018-07-17] MEDS: INSULIN ASPART [NOVOLOG] 3 ML PEN SC SCH ×7 (08:24→20:12)
[2018-07-17] MEDS: METOPROLOL (XL) 100 MG TAB PO SCH (08:25)
[2018-07-17] MEDS: AMLODIPINE 5 MG TAB PO SCH (08:26)
--- NOTE | 2018-07-17 09:31 | PN ---
DATE: 07/17/2018 SUBJECTIVE: The patient is stable. No events overnight. OBJECTIVE: VITAL SIGNS: Blood pressure is 118/57, respirations 18, pulse 71, temperature 98.4. HEENT: Head is normocephalic. NECK: Supple. HEART: Regular rate. LUNGS: Show diminished breath sounds at the base. ABDOMEN: Soft, nontender to palpation. No rebound or guarding. EXTREMITIES: Negative for clubbing, cyanosis, no edema. DERMATOLOGIC: No rashes. MUSCULOSKELETAL: No joint effusion. NEUROLOGIC: No change in exam. MEDICATIONS: Reviewed. LABORATORY DATA: From 07/17/2018 shows INR 3.31. Magnesium 1.5. ASSESSMENT AND PLAN: 1. Acute encephalopathy, etiology is toxic metabolic. The patient's mental status is improving. Co ntinue to monitor. 2. Right humeral fracture. Continue supportive care, continue occupational therapy. 3. Sepsis secondary to urinary tract infection. The patient is completing antibiotic course. 4. Acute kidney injury on top of chronic kidney disease. Etiology is likely secondary to hemodynami cs. Renal function is stabilizing. Continue to monitor. 5. Anemia. Monitor hemoglobin and hematocrit levels. 6. Mineral bone disorder. Monitor calcium and phosphorus levels. 7. Hypercoagulable state. The patient's INR is currently supratherapeutic. Continue to hold Coumad in. No evidence of bleeding. Monitor closely. 8. Sick sinus syndrome, status post pacemaker. 9. Diabetes. Continue current insulin regimen. 10. Hypertension. Continue current blood pressure regimen. 11. Seizure disorder. Continue Keppra. 12. Dyslipidemia. Continue statin therapy. 13. Pruritus. Continue Benadryl. 14. Insomnia. Continue melatonin. 15. Constipation. Continue current bowel regimen. 16. Gastrointestinal and deep vein thrombosis prophylaxis. Dictated By: NAYELI CHAUDHARI DO NR/NTS Conf#: [id number] DID#: [id number] CC: FRANSISCO GAMBOA MD; SHIRA LU DO; TERESA PELLETIER MD;*EndCC*
[2018-07-17] MEDS: MAGNESIUM OXIDE 400 MG TAB PO SCH (09:32)
[2018-07-17] MEDS: ACETAMINOPHEN 325 MG TAB PO PRN ×2 (11:18→20:09)
[2018-07-17] MEDS: DIPHENHYDRAMINE 25 MG CAP PO PRN ×3 (13:13→21:21)
--- NOTE | 2018-07-17 13:25 | PN ---
Date/Time of Note Date/Time of Note DATE: 07/17/18 TIME: 13:25 Objective Vital Signs Date Temp Pulse Resp B/P (MAP) Pulse Ox O2 O2 Flow FiO2 Time Delivery Rate 07/17/18 98.0 74 18 135/64 96 Room Air 08:00 (87) Intake and Output 07/16/18 07/16/18 07/17/18 1414:59 22:59 06:59 IntakeIntake Total 540 ml 350 ml OutputOutput Total 1 ml BalanceBalance 539 ml 350 ml Exam INTERDISCIPLINARY TEAM CONFERENCE Attended by PT, OT, ST, Ground Nuclear Weapons Assembly Officer, Social Work, Rehabilitation Nursing, Tunnel Man and Wool BrokerMartial Arts Instructor Exam: Pulm- cta Abd-soft BOWEL- Cont/incont BLADDER-Cont /incont SKIN- improving OT- DRESSING-mod BATHING-mod TOILETING-mod PT- BED MOBILITY-min/mod TRANSFERS-mod AMBULATION- mod 15 feet COGNITION- sba A/P- Interdisciplinary team conference held today. Please see interdisciplinary sheet. Working toward d.c. on 07/21 with post discharge follow up of physical therapy, occupational therapy. Results/Medications Result Diagram: 07/13/1818 07/17/18 0633 Results 24 hrs Laboratory Tests Test 07/16/18 17:23 07/16/18 20:13 07/17/18 06:33 07/17/18 07:45 Bedside Glucose 145 147 215 Prothrombin Time 33.6 H Prothrombin Time 2.6 Ratio INR International 3.31 Normalized Ratio Sodium Level 141 Potassium Level 4.9 Chloride Level 107 Carbon Dioxide Level 25 Anion Gap 9 Blood Urea Nitrogen 28 H Creatinine 1.25 H Est Glomerular Filtrat Rate mL/min Glucose Level 187 Calcium Level 9.9 Phosphorus Level 3.1 Magnesium Level 1.5 L Test 07/17/18 12:06 Bedside Glucose 141 Medications Current Medications Acetaminophen (Tylenol Tab) 650 mg Q4H PRN PO MILD PAIN(1-3)OR ELEVATED TEMP Last administered on 07/17/18at 11:18; Admin Dose 650 MG; Start 07/07/18 at 00:00 Bisacodyl (Dulcolax Supp) 10 mg DAILY PRN [place] CONSTIPATION Last administered on 07/13/18at 17:32; Admin Dose 10 MG; Start 07/07/18 at 00:00 Calcium Carbonate (Tums) 1,000 mg Q4H PRN PO Indigestion; Start 07/07/18 at 00:00 Citalopram Hydrobromide (Celexa) 40 mg HS PO Last administered on 07/16/18 20:16; Admin Dose 40 MG; Start 07/07/18 at 21:00 Fenofibrate (Tricor) 145 mg DAILY PO Last administered on 07/17/18 08:15; Admin Dose 145 MG; Start 07/07/18 at 09:00 Folic Acid (Folic Acid) 1 mg DAILY PO Last administered on 07/17/18 08:14; Admin Dose 1 MG; Start 07/07/18 at 09:00 Acetaminophen/ Hydrocodone Bitart ([place] (5/325)) 1 tab Q4H PRN PO Pain Last administered on 07/10/18 20:39; Admin Dose 1 TAB; Start 07/07/18 at 00:00 Lacosamide (Vimpat Liq) 150 mg BID PO Last administered on 07/17/18 08:15; Admin Dose 150 MG; Start 07/07/18 at 09:00 Lamotrigine (Lamictal) 25 mg HS PO Last administered on 07/16/18 20:17; Admin Dose 25 MG; Start 07/07/18 at 21:00 Levetiracetam (Keppra) 1,000 mg DAILY PO Last administered on 07/17/18 08:13; Admin Dose 1,000 MG; Start 07/07/18 at 09:00 Levetiracetam (Keppra) 1,500 mg HS PO Last administered on 07/16/18 20:14; Admin Dose 1,500 MG; Start 07/07/18 at 21:00 Lidocaine (Lidoderm) 1 patch DAILY TD Last administered on 07/17/18 08:15; Admin Dose 1 PATCH; Start 07/07/18 at 09:00 Metoprolol Succinate (Toprol Xl) 100 mg DAILY PO Last administered on 07/17/18 08:25; Admin Dose 100 MG; Start 07/07/18 at 09:00 Ondansetron HCl (Zofran Tab) 4 mg Q6H PRN PO NAUSEA AND/OR VOMITING; Start 07/07/18 at 00:00 Pantoprazole (Protonix Tab) 40 mg DAILY@06 PO Last administered on 07/17/18 06:21; Admin Dose 40 MG; Start 07/07/18 at 06:00 Warfarin Sodium (Coumadin) 3 mg DAILY@1700 PO Last administered on 07/15/18 18:35; Admin Dose 3 MG; Start 07/07/18 at 17:00; Status Hold Melatonin (Melatonin) 0.5 mg HS PRN PO Insomnia Last administered on 07/16/18 20:17; Admin Dose 0.5 MG; Start 07/07/18 at 00:30 Insulin Aspart (Novolog Insulin Pen) NOVOLOG *MODERATE* ALGORITHM WITH MEALS BEDTIME SC Last administered on 07/17/18 08:36; Admin Dose 4 UNIT; Start 07/07/18 at 07:35 Miscellaneous Information 1 ea NOTE XX ; Start 07/07/18 at 01:00 Glucose (Glutose) 15 gm Q15M PRN PO DECREASED GLUCOSE; Start 07/07/18 at 01:00 Glucose (Glutose) 22.5 gm Q15M PRN PO DECREASED GLUCOSE; Start 07/07/18 at 01:00 Dextrose (D50w Syringe) 25 ml Q15M PRN IV DECREASED GLUCOSE; Start 07/07/18 at 01:00 Dextrose (D50w Syringe) 50 ml Q15M PRN IV DECREASED GLUCOSE; Start 07/07/18 at 01:00 Glucagon (Glucagen) 1 mg Q15M PRN IM DECREASED GLUCOSE; Start 07/07/18 at 01:00 Glucose (Glutose) 15 gm Q15M PRN BUCCAL DECREASED GLUCOSE; Start 07/07/18 at 01:00 Rosuvastatin Calcium (Crestor) 20 mg HS PO Last administered on 07/16/18at 20:16; Admin Dose 20 MG; Start 07/07/18 at 21:00 Senna (Senokot) 1 tab HS PRN PO CONSTIPATION; Start 07/07/18 at 21:00 Magnesium Hydroxide (Milk Of Mag) 30 ml BID PRN PO CONSTIPATION; Start 07/07/18 at 03:30 Lactulose (Enulose) 20 gm DAILY PRN PO CONSTIPATION; Start 07/07/18 at 03:30 Simethicone (Mylicon) 160 mg Q6H PRN PO DISTENSION/GAS/BLOATING Last admin istered on 07/11/18 14:54; Admin Dose 160 MG; Start 07/07/18 at 19:30 Miscellaneous Information (* Miscellaneous Pharmacy Order) The patient is on Trulic... ONCE XX ; Start 07/13/18 at 17:30 Non-Formulary Medication 1 ea Fr@1000 SC Last administered on 07/14/18 11:29; Admin Dose 1 EA; Start 07/14/18 at 10:00 Amlodipine Besylate (Norvasc) 5 mg DAILY PO Last administered on 07/15/18 08:40; Admin Dose 5 MG; Start 07/14/18 at 09:00 Benazepril HCl (Lotensin) 40 mg HS PO Last administered on 07/15/18 20:12; Admin Dose 40 MG; Start 07/14/18 at 21:00 Insulin Aspart (Novolog Insulin Pen) 20 unit WITH MEALS SC Last administered on 07/17/18 12:13; Admin Dose 20 UNIT; Start 07/15/18 at 17:35 Docusate Sodium (Colace) 100 mg QHS PO Last administered on 07/16/18 20:16; Admin Dose 100 MG; Start 07/15/18 at 21:00 Insulin Glargine (Lantus) 14 units DAILY@2000 SC Last administered on 07/16/18 20:18; Admin Dose 14 UNITS; Start 07/15/18 at 20:00 Metformin HCl (Glucophage) 500 mg AC BREAKFAST PO Last administered on 07/17/18 08:13; Admin Dose 500 MG; Start 07/16/18 at 07:05 Magnesium Oxide (Mag-Ox 400) 400 mg DAILY PO Last administered on 07/17/18 09:32; Admin Dose 400 MG; Start 07/17/18 at 09:00 Diphenhydramine HCl (Benadryl) 25 mg BID PRN PO ITCHING Last administered on 07/17/18 13:13; Admin Dose 25 MG; Start 07/17/18 at 13:30 TERESA PELLETIER MD Jul 17, 2018 13:25
[2018-07-17 14:00] VITALS: BP 119/53; PULSE 76; RESP 18
--- NOTE | 2018-07-17 19:09 | CONS ---
Assessment/Plan Assessment/Plan Problems: (1) Diabetes mellitus type 2 in nonobese Status: Chronic Comment: Adequate glycemic control on the current regimen including a GLP-1 drug Consultation Date/Type/Reason Admit Date/Time Jul 06, 2018 at 19:47 Initial Consult Date 07/12/18 Type of Consult Endocrinology Reason for Consultation Diabetes mellitus type 2 on combination therapy Requesting Provider: NAYELI CHAUDHARI DO Date/Time of Note DATE: 07/17/18 TIME: 19:08 24 HR Interval Summary Free Text/Dictation Patient reports no hypoglycemic reactions Constitutional: no complaints Detailed Summary Endocrine: no complaints Exam/Review of Systems Exam Vitals Vital Signs Date Temp Pulse Resp B/P (MAP) Pulse Ox O2 O2 Flow FiO2 Time Delivery Rate 07/17/18 97.9 76 18 119/53 96 Room Air 14:00 (75) Intake and Output 07/16/18 07/16/18 07/17/18 1515:00 23:00 07:00 IntakeIntake Total 540 ml 350 ml OutputOutput Total 1 ml BalanceBalance 539 ml 350 ml Exam No change in examination Results Result Diagram: 07/13/18 0618 07/17/18 0633 Results 24hrs Laboratory Tests Test 07/16/18 20:13 07/17/18 06:33 07/17/18 07:45 07/17/18 12:06 Bedside Glucose 147 215 141 Prothrombin Time 33.6 H Prothrombin Time 2.6 Ratio INR International 3.31 Normalized Ratio Sodium Level 141 Potassium Level 4.9 Chloride Level 107 Carbon Dioxide Level 25 Anion Gap 9 Blood Urea Nitrogen 28 H Creatinine 1.25 H Est Glomerular Filtrat Rate mL/min Glucose Level 187 Calcium Level 9.9 Phosphorus Level 3.1 Magnesium Level 1.5 L Test 07/17/18 17:53 Bedside Glucose 182 Medications Medication Current Medications Acetaminophen (Tylenol Tab) 650 mg Q4H PRN PO MILD PAIN(1-3)OR ELEVATED TEMP Last administered on 07/17/18at 11:18; Admin Dose 650 MG; Start 07/07/18 at 00:00 Bisacodyl (Dulcolax Supp) 10 mg DAILY PRN [place] CONSTIPATION Last administered on 07/13/18at 17:32; Admin Dose 10 MG; Start 07/07/18 at 00:00 Calcium Carbonate (Tums) 1,000 mg Q4H PRN PO Indigestion; Start 07/07/18 at 00:00 Citalopram Hydrobromide (Celexa) 40 mg HS PO Last administered on 07/16/18 20:16; Admin Dose 40 MG; Start 07/07/18 at 21:00 Fenofibrate (Tricor) 145 mg DAILY PO Last administered on 07/17/18 08:15; Admin Dose 145 MG; Start 07/07/18 at 09:00 Folic Acid (Folic Acid) 1 mg DAILY PO Last administered on 07/17/18 08:14; Admin Dose 1 MG; Start 07/07/18 at 09:00 Acetaminophen/ Hydrocodone Bitart ([place] (5/325)) 1 tab Q4H PRN PO Pain Last administered on 07/10/18 20:39; Admin Dose 1 TAB; Start 07/07/18 at 00:00 Lacosamide (Vimpat Liq) 150 mg BID PO Last administered on 07/17/18 08:15; Admin Dose 150 MG; Start 07/07/18 at 09:00 Lamotrigine (Lamictal) 25 mg HS PO Last administered on 07/16/18 20:17; Admin Dose 25 MG; Start 07/07/18 at 21:00 Levetiracetam (Keppra) 1,000 mg DAILY PO Last administered on 07/17/18 08:13; Admin Dose 1,000 MG; Start 07/07/18 at 09:00 Levetiracetam (Keppra) 1,500 mg HS PO Last administered on 07/16/18 20:14; Admin Dose 1,500 MG; Start 07/07/18 at 21:00 Lidocaine (Lidoderm) 1 patch DAILY TD Last administered on 07/17/18 08:15; Admin Dose 1 PATCH; Start 07/07/18 at 09:00 Metoprolol Succinate (Toprol Xl) 100 mg DAILY PO Last administered on 07/17/18 08:25; Admin Dose 100 MG; Start 07/07/18 at 09:00 Ondansetron HCl (Zofran Tab) 4 mg Q6H PRN PO NAUSEA AND/OR VOMITING; Start 07/07/18 at 00:00 Pantoprazole (Protonix Tab) 40 mg DAILY@06 PO Last administered on 07/17/18 06:21; Admin Dose 40 MG; Start 07/07/18 at 06:00 Warfarin Sodium (Coumadin) 3 mg DAILY@1700 PO Last administered on 07/15/18 18:35; Admin Dose 3 MG; Start 07/07/18 at 17:00; Status Hold Insulin Aspart (Novolog Insulin Pen) NOVOLOG *MODERATE* ALGORITHM WITH MEALS BEDTIME SC Last administered on 07/17/18 18:07; Admin Dose 4 UNIT; Start 07/07/18 at 07:35 Miscellaneous Information 1 ea NOTE XX ; Start 07/07/18 at 01:00 Glucose (Glutose) 15 gm Q15M PRN PO DECREASED GLUCOSE; Start 07/07/18 at 01:00 Glucose (Glutose) 22.5 gm Q15M PRN PO DECREASED GLUCOSE; Start 07/07/18 at 01:00 Dextrose (D50w Syringe) 25 ml Q15M PRN IV DECREASED GLUCOSE; Start 07/07/18 at 01:00 Dextrose (D50w Syringe) 50 ml Q15M PRN IV DECREASED GLUCOSE; Start 07/07/18 at 01:00 Glucagon (Glucagen) 1 mg Q15M PRN IM DECREASED GLUCOSE; Start 07/07/18 at 01:00 Glucose (Glutose) 15 gm Q15M PRN BUCCAL DECREASED GLUCOSE; Start 07/07/18 at 01:00 Rosuvastatin Calcium (Crestor) 20 mg HS PO Last administered on 07/16/18at 20:16; Admin Dose 20 MG; Start 07/07/18 at 21:00 Senna (Senokot) 1 tab HS PRN PO CONSTIPATION; Start 07/07/18 at 21:00 Magnesium Hydroxide (Milk Of Mag) 30 ml BID PRN PO CONSTIPATION; Start 07/07/18 at 03:30 Lactulose (Enulose) 20 gm DAILY PRN PO CONSTIPATION; Start 07/07/18 at 03:30 Simethicone (Mylicon) 160 mg Q6H PRN PO DISTENSION/GAS/BLOATING Last administered on 07/11/18at 14:54; Admin Dose 160 MG; Start 07/07/18 at 19:30 Miscellaneous Information (* Miscellaneous Pharmacy Order) The patient is on Trulic... ONCE XX ; Start 07/13/18 at 17:30 Non-Formulary Medication 1 ea Fr@1000 SC Last administered on 07/14/18 11:29; Admin Dose 1 EA; Start 07/14/18 at 10:00 Amlodipine Besylate (Norvasc) 5 mg DAILY PO Last administered on 07/15/18 08:40; Admin Dose 5 MG; Start 07/14/18 at 09:00 Benazepril HCl (Lotensin) 40 mg HS PO Last administered on 07/15/18 20:12; Admin Dose 40 MG; Start 07/14/18 at 21:00 Insulin Aspart (Novolog Insulin Pen) 20 unit WITH MEALS SC Last administered on 07/17/18 18:05; Admin Dose 20 UNIT; Start 07/15/18 at 17:35 Docusate Sodium (Colace) 100 mg QHS PO Last administered on 07/16/18 20:16; Admin Dose 100 MG; Start 07/15/18 at 21:00 Insulin Glargine (Lantus) 14 units DAILY@2000 SC Last administered on 07/16/18 20:18; Admin Dose 14 UNITS; Start 07/15/18 at 20:00 Metformin HCl (Glucophage) 500 mg AC BREAKFAST PO Last administered on 07/17/18 08:13; Admin Dose 500 MG; Start 07/16/18 at 07:05 Magnesium Oxide (Mag-Ox 400) 400 mg DAILY PO Last administered on 07/17/18 09:32; Admin Dose 400 MG; Start 07/17/18 at 09:00 Diphenhydramine HCl (Benadryl) 25 mg BID PRN PO ITCHING Last administered on 07/17/18 13:13; Admin Dose 25 MG; Start 07/17/18 at 13:30 Melatonin (Melatonin) 10 mg HS PRN PO insomnia; Start 07/17/18 at 19:00 FRANSISCO GAMBOA MD Jul 17, 2018 19:09
[2018-07-17] MEDS: MELATONIN 5 MG TABLET PO PRN (20:08)
[2018-07-17] MEDS: LEVETIRACETAM 750 MG TAB PO SCH (20:08)
[2018-07-17] MEDS: DOCUSATE SODIUM 100 MG CAP PO SCH (20:08)
[2018-07-17] MEDS: ROSUVASTATIN CALCIUM 40 MG TABLET PO SCH (20:08)
[2018-07-17] MEDS: CITALOPRAM 20 MG TAB PO SCH (20:09)
[2018-07-17] MEDS: LAMOTRIGINE 25 MG TAB PO SCH (20:09)
[2018-07-17] MEDS: INSULIN GLARGINE [LANTus] (100 UNITS/ML) SYG SC SCH (20:10)
[2018-07-17] MEDS: BENAZEPRIL 40 MG TAB PO SCH (20:13)
[2018-07-17 20:25] VITALS: BP 127/64; PULSE 78; RESP 18
[2018-07-18 00:09] VITALS: BP 127/59; PULSE 70; RESP 19
[2018-07-18] MEDS: PANTOPRAZOLE (EC) 40 MG TAB PO SCH (06:38)
[2018-07-18] MEDS: metFORMIN 500 MG TAB PO SCH (07:38)
[2018-07-18] MEDS: INSULIN ASPART [NOVOLOG] 3 ML PEN SC SCH ×7 (07:40→21:00)
[2018-07-18 08:00] VITALS: BP 141/61; PULSE 72; RESP 18
[2018-07-18] MEDS: FOLIC ACID 1 MG TAB PO SCH (08:27)
[2018-07-18] MEDS: MAGNESIUM OXIDE 400 MG TAB PO SCH (08:28)
[2018-07-18] MEDS: METOPROLOL (XL) 100 MG TAB PO SCH (08:28)
[2018-07-18] MEDS: LEVETIRACETAM 500 MG TAB PO SCH (08:28)
[2018-07-18] MEDS: FENOFIBRATE 145 MG TAB PO SCH (08:28)
[2018-07-18] MEDS: AMLODIPINE 5 MG TAB PO SCH (08:29)
[2018-07-18] MEDS: LIDOCAINE 5% PATCH TD SCH (08:29)
[2018-07-18] MEDS: LACOSAMIDE (100 MG/10 ML PO SYR) PO SCH ×2 (08:29→20:32)
--- NOTE | 2018-07-18 09:04 | PN ---
DATE: 07/18/2018 SUBJECTIVE: The patient is stable, no events overnight. OBJECTIVE: VITAL SIGNS: Blood pressure is 127/59, respirations 19, pulse 70, temperature 98.7. HEENT: Head is normocephalic. NECK: Supple. HEART: Regular rate. LUNGS: Show diminished breath sounds at the base. ABDOMEN: Soft, nontender to palpation without rebound or guarding. EXTREMITIES: Negative for clubbing, cyanosis, no edema. DERMATOLOGIC: No rashes. MUSCULOSKELETAL: No joint effusion. NEUROLOGIC: No change in exam. MEDICATIONS: The patient's medications have been reviewed. LABORATORY DATA: From 07/18/2018 was reviewed. ASSESSMENT AND PLAN: 1. Acute encephalopathy, etiology is toxic metabolic. Mental status is improved. Continue to monit or. 2. Right humeral fracture. Continue supportive care, continue occupational therapy. 3. Sepsis secondary to urinary tract infection. The patient is completing antibiotic course. 4. Acute kidney injury on top of chronic kidney disease. Etiology is secondary to hemodynamics. Re nal function has been stabilized. 5. Anemia. Continue to monitor hemoglobin and hematocrit levels. 6. Mineral bone disorder, monitor calcium and phosphorus levels. 7. Hypercoagulable state. The patient is currently on Coumadin. INR is at goal. 8. Sick sinus syndrome, status post pacemaker. 9. Diabetes. Continue current insulin regimen. 10. Hypertension. Continue blood pressure regimen. 11. Seizure disorder, continue Keppra. 12. Dyslipidemia. Continue statin therapy. 13. Insomnia. Continue melatonin. 14. Pruritus. Continue Benadryl. 15. Constipation. Continue current bowel regimen. 16. Gastrointestinal and deep vein thrombosis prophylaxis. Dictated By: NAYELI CHAUDHARI DO NR/NTS Conf#: [id number] DID#: [id number] CC: TERESA PELLETIER MD; FRANSISCO GAMBOA MD; SHIRA LU DO;*EndCC*
[2018-07-18] MEDS: ACETAMINOPHEN 325 MG TAB PO PRN ×2 (11:01→20:26)
--- NOTE | 2018-07-18 13:11 | PN ---
Date/Time of Note Date/Time of Note DATE: 07/18/18 TIME: 13:08 Subjective patient seems to be doing better with written goals, and has been achieving her daily goals Objective Vital Signs Date Temp Pulse Resp B/P (MAP) Pulse Ox O2 O2 Flow FiO2 Time Delivery Rate 07/18/18 97.7 72 18 141/61 95 Room Air 08:00 (87) Intake and Output 07/17/18 07/17/18 07/18/18 1515:00 23:00 07:00 IntakeIntake Total 780 ml BalanceBalance 780 ml Exam pulm-cta abd-soft mod assist 20 feet Results/Medications Result Diagram: 07/18/18 0551 07/17/18 0633 Results 24 hrs Laboratory Tests Test 07/17/18 17:53 07/17/18 20:09 07/17/18 21:05 07/18/18 05:51 Bedside Glucose 182 268 H White Blood Count 5.9 4.9 Red Blood Count 3.88 L 3.69 L Hemoglobin 9.8 L 9.3 L Hematocrit 32.4 L 31.0 L Mean Corpuscular 83.5 84.0 Volume Mean Corpuscular 25.3 L 25.2 L Hemoglobin Mean Corpuscular 30.2 L 30.0 L Hemoglobin Concent Red Cell 17.4 H 17.3 H Distribution Width Platelet Count 354 329 Mean Platelet Volume 9.4 9.4 Immature 0.300 0.400 Granulocytes % Neutrophils % 64.6 63.6 Lymphocytes % 23.4 23.8 Monocytes % 8.5 8.8 Eosinophils % 2.0 2.4 Basophils % 1.2 1.0 Nucleated Red Blood 0.0 0.0 Cells % Immature 0.020 0.020 Granulocytes # Neutrophils # 3.8 3.1 Lymphocytes # 1.4 1.2 Monocytes # 0.5 0.4 Eosinophils # 0.1 0.1 Basophils # 0.1 0.1 Nucleated Red Blood 0.0 0.0 Cells # Prothrombin Time 30.8 H 27.6 H Prothrombin Time 2.4 2.2 Ratio INR International 2.95 2.56 Normalized Ratio Test 07/18/18 07:37 07/18/18 11:47 Bedside Glucose 231 H 132 Medications Current Medications Acetaminophen (Tylenol Tab) 650 mg Q4H PRN PO MILD PAIN(1-3)OR ELEVATED TEMP Last administered on 07/18/18 11:01; Admin Dose 650 MG; Start 07/07/18 at 00:00 Bisacodyl (Dulcolax Supp) 10 mg DAILY PRN [place] CONSTIPATION Last administered on 07/13/18 17:32; Admin Dose 10 MG; Start 07/07/18 at 00:00 Calcium Carbonate (Tums) 1,000 mg Q4H PRN PO Indigestion; Start 07/07/18 at 00:00 Citalopram Hydrobromide (Celexa) 40 mg HS PO Last administered on 07/17/18 20:09; Admin Dose 40 MG; Start 07/07/18 at 21:00 Fenofibrate (Tricor) 145 mg DAILY PO Last administered on 07/18/18 08:28; Admin Dose 145 MG; Start 07/07/18 at 09:00 Folic Acid (Folic Acid) 1 mg DAILY PO Last administered on 07/18/18 08:27; Admin Dose 1 MG; Start 07/07/18 at 09:00 Acetaminophen/ Hydrocodone Bitart ([place] (5/325)) 1 tab Q4H PRN PO Pain Last administered on 07/10/18 20:39; Admin Dose 1 TAB; Start 07/07/18 at 00:00 Lacosamide (Vimpat Liq) 150 mg BID PO Last administered on 07/18/18 08:29; Admin Dose 150 MG; Start 07/07/18 at 09:00 Lamotrigine (Lamictal) 25 mg HS PO Last administered on 07/17/18 20:09; Admin Dose 25 MG; Start 07/07/18 at 21:00 Levetiracetam (Keppra) 1,000 mg DAILY PO Last administered on 07/18/18 08:28; Admin Dose 1,000 MG; Start 07/07/18 at 09:00 Levetiracetam (Keppra) 1,500 mg HS PO Last administered on 07/17/18 20:08; Admin Dose 1,500 MG; Start 07/07/18 at 21:00 Lidocaine (Lidoderm) 1 patch DAILY TD Last administered on 07/18/18 08:29; Admin Dose 1 PATCH; Start 07/07/18 at 09:00 Metoprolol Succinate (Toprol Xl) 100 mg DAILY PO Last administered on 07/18/18 08:28; Admin Dose 100 MG; Start 07/07/18 at 09:00 Ondansetron HCl (Zofran Tab) 4 mg Q6H PRN PO NAUSEA AND/OR VOMITING; Start 07/07/18 at 00:00 Pantoprazole (Protonix Tab) 40 mg DAILY@06 PO Last administered on 07/18/18 06:38; Admin Dose 40 MG; Start 07/07/18 at 06:00 Insulin Aspart (Novolog Insulin Pen) NOVOLOG *MODERATE* ALGORITHM WITH MEALS BEDTIME SC Last administered on 07/18/18 07:40; Admin Dose 6 UNIT; Start 07/07/18 at 07:35 Miscellaneous Information 1 ea NOTE XX ; Start 07/07/18 at 01:00 Glucose (Glutose) 15 gm Q15M PRN PO DECREASED GLUCOSE; Start 07/07/18 at 01:00 Glucose (Glutose) 22.5 gm Q15M PRN PO DECREASED GLUCOSE; Start 07/07/18 at 01:00 Dextrose (D50w Syringe) 25 ml Q15M PRN IV DECREASED GLUCOSE; Start 07/07/18 at 01:00 Dextrose (D50w Syringe) 50 ml Q15M PRN IV DECREASED GLUCOSE; Start 07/07/18 at 01:00 Glucagon (Glucagen) 1 mg Q15M PRN IM DECREASED GLUCOSE; Start 07/07/18 at 01:00 Glucose (Glutose) 15 gm Q15M PRN BUCCAL DECREASED GLUCOSE; Start 07/07/18 at 01:00 Rosuvastatin Calcium (Crestor) 20 mg HS PO Last administered on 07/17/18at 20:08; Admin Dose 20 MG; Start 07/07/18 at 21:00 Senna (Senokot) 1 tab HS PRN PO CONSTIPATION; Start 07/07/18 at 21:00 Magnesium Hydroxide (Milk Of Mag) 30 ml BID PRN PO CONSTIPATION; Start 07/07/18 at 03:30 Lactulose (Enulose) 20 gm DAILY PRN PO CONSTIPATION; Start 07/07/18 at 03:30 Simethicone (Mylicon) 160 mg Q6H PRN PO DISTENSION/GAS/BLOATING Last administered on 07/11/18 14:54; Admin Dose 160 MG; Start 07/07/18 at 19:30 Miscellaneous Information (* Miscellaneous Pharmacy Order) The patient is on Trulic... ONCE XX ; Start 07/13/18 at 17:30 Non-Formulary Medication 1 ea Fr@1000 SC Last administered on 07/14/18 11:29; Admin Dose 1 EA; Start 07/14/18 at 10:00 Amlodipine Besylate (Norvasc) 5 mg DAILY PO Last administered on 07/18/18 08:29; Admin Dose 5 MG; Start 07/14/18 at 09:00 Benazepril HCl (Lotensin) 40 mg HS PO Last administered on 07/15/18 20:12; Admin Dose 40 MG; Start 07/14/18 at 21:00 Insulin Aspart (Novolog Insulin Pen) 20 unit WITH MEALS SC Last administered on 07/18/18 11:56; Admin Dose 20 UNIT; Start 07/15/18 at 17:35 Docusate Sodium (Colace) 100 mg QHS PO Last administered on 07/17/18 20:08; Admin Dose 100 MG; Start 07/15/18 at 21:00 Insulin Glargine (Lantus) 14 units DAILY@2000 SC Last administered on 07/17/18 20:10; Admin Dose 14 UNITS; Start 07/15/18 at 20:00 Metformin HCl (Glucophage) 500 mg AC BREAKFAST PO Last administered on 07/18/18 07:38; Admin Dose 500 MG; Start 07/16/18 at 07:05 Magnesium Oxide (Mag-Ox 400) 400 mg DAILY PO Last administered on 07/18/18 08:28; Admin Dose 400 MG; Start 07/17/18 at 09:00 Diphenhydramine HCl (Benadryl) 25 mg BID PRN PO ITCHING Last administered on 07/17/18 21:21; Admin Dose 25 MG; Start 07/17/18 at 13:30 Melatonin (Melatonin) 10 mg HS PRN PO insomnia Last administered on 07/17/18 20:08; Admin Dose 10 MG; Start 07/17/18 at 19:00 Warfarin Sodium (Coumadin) 2 mg DAILY@1700 PO ; Start 07/18/18 at 17:00 Assessment/Plan Additional Assessment/Plan Rehab- Toxic metabolic encephalopathy superimposed on history of CVA with residual right upper extremity weakness. Continue patient/team goals Status post fall with right upper extremity fracture, being managed conse rvatively. Seizure disorder. Diabetes mellitus type 2 with labile blood sugars. Hypertension. Hyperlipidemia. History of hypercoagulable state. History of arrhythmia, sick sinus syndrome and pacemaker placement. Status post sepsis and urinary tract infection. Acute on chronic kidney injury. TERESA PELLETIER MD Jul 18, 2018 13:11
[2018-07-18 14:00] VITALS: BP 119/56; PULSE 69; RESP 16
[2018-07-18] MEDS: WARFARIN 2 MG TAB PO SCH (17:19)
[2018-07-18 20:00] VITALS: BP 110/48; PULSE 70; RESP 18
[2018-07-18] MEDS ORDERED: INSULIN GLARGINE [LANTus] (100 UNITS/ML) SYG SC SCH (20:00)
--- NOTE | 2018-07-18 20:18 | PN ---
DATE: 07/18/2018 PSYCHOLOGY -- INDIVIDUAL SESSION -- [id number] This is a followup on a patient that was seen last week. The patient reports that her anxiety has de creased. The patient is preparing to possibly be discharged on Tuesday. The patient had been very de pressed and still is depressed about the outcome. The patient likely is going to have to be discharg ed to an independent living facility with her for about a month, so that they can try to buy a new home that [place] instead of the present place where they live that has numerous stairs. Th e patient does have at least a decent plan and does feel positive about the progress that she has mad e in the program. Worked with the patient to try to continue to encourage her and to support the fac t that she has at least a working plan as to how she can function better after she leaves the [facility]. Dictated By: RAVINDER PERSAUD PHD SHELBIE/ANN MARIE Conf#: [id number] DID#: [id number]
[2018-07-18] MEDS: DIPHENHYDRAMINE 25 MG CAP PO PRN (20:26)
[2018-07-18] MEDS: DOCUSATE SODIUM 100 MG CAP PO SCH (20:27)
[2018-07-18] MEDS: CITALOPRAM 20 MG TAB PO SCH (20:27)
[2018-07-18] MEDS: LEVETIRACETAM 750 MG TAB PO SCH (20:31)
[2018-07-18] MEDS: ROSUVASTATIN CALCIUM 40 MG TABLET PO SCH (20:31)
[2018-07-18] MEDS: LAMOTRIGINE 25 MG TAB PO SCH (20:32)
[2018-07-18] MEDS: MELATONIN 5 MG TABLET PO PRN (20:42)
[2018-07-18] MEDS: BENAZEPRIL 40 MG TAB PO SCH (21:00)
[2018-07-19 02:20] VITALS: BP_SYST 123; BP_SYST 135; BP_DIAS 60; PULSE 72; RESP 18
[2018-07-19] MEDS: PANTOPRAZOLE (EC) 40 MG TAB PO SCH (05:53)
[2018-07-19] MEDS: metFORMIN 500 MG TAB PO SCH (07:55)
[2018-07-19] MEDS: INSULIN ASPART [NOVOLOG] 3 ML PEN SC SCH ×7 (07:56→21:00)
[2018-07-19 08:00] VITALS: BP 148/65; PULSE 71; RESP 18
--- NOTE | 2018-07-19 08:47 | PN ---
DATE: 07/19/2018 SUBJECTIVE: The patient is stable, no events overnight. OBJECTIVE: VITAL SIGNS: Blood pressure is 135/60, respirations 18, pulse 72, temperature 97.6. HEENT: Head is normocephalic. NECK: Supple. HEART: Regular rate. LUNGS: Show diminished breath sounds at the base. ABDOMEN: Soft, nontender to palpation. No rebound or guarding. EXTREMITIES: Negative for clubbing, cyanosis, no edema. DERMATOLOGIC: No rashes. MUSCULOSKELETAL: No joint effusion. NEUROLOGIC: No change in exam. MEDICATIONS: Reviewed. LABORATORY DATA: Reviewed. ASSESSMENT AND PLAN: 1. Acute encephalopathy, etiology is toxic metabolic. The patient's mental status is improved. Con tinue to monitor. 2. Right humeral fracture. Continue pain control, supportive care, and physical therapy. 3. Sepsis secondary to urinary tract infection. The patient has completed antibiotic course. 4. Acute kidney injury on top of chronic kidney disease. Etiology is secondary to hemodynamics. Re nal function is stabilized. 5. Anemia. Continue to monitor hemoglobin and hematocrit levels. 6. Mineral bone disorder. Monitor calcium and phosphorus levels. 7. Hypercoagulable state, currently on Coumadin. INR is at goal. Continue to monitor. 8. Sick sinus syndrome, status post pacemaker placement. 9. Diabetes. Continue current insulin regimen. 10. Hypertension. Continue current blood pressure regimen. 11. Seizure disorder. Continue Keppra. 12. Dyslipidemia. Continue statin therapy. 13. Insomnia. Continue melatonin. 14. Pruritus. Continue Benadryl. 15. Constipation. Continue current bowel regimen. 16. Gastrointestinal and deep vein thrombosis prophylaxis. Dictated By: NAYELI CHAUDHARI DO NR/NTS Conf#: [id number] DID#: [id number] CC: SHIRA UL DO; TERESA PELLETIER MD; FRANSISCO GAMBOA MD;*EndCC*
[2018-07-19] MEDS: LACOSAMIDE (100 MG/10 ML PO SYR) PO SCH ×2 (08:59→20:29)
[2018-07-19] MEDS: LIDOCAINE 5% PATCH TD SCH (08:59)
[2018-07-19] MEDS: AMLODIPINE 5 MG TAB PO SCH (09:00)
[2018-07-19] MEDS: FENOFIBRATE 145 MG TAB PO SCH (09:03)
[2018-07-19] MEDS: LEVETIRACETAM 500 MG TAB PO SCH (09:03)
[2018-07-19] MEDS: METOPROLOL (XL) 100 MG TAB PO SCH (09:03)
[2018-07-19] MEDS: FOLIC ACID 1 MG TAB PO SCH (09:03)
[2018-07-19] MEDS: MAGNESIUM OXIDE 400 MG TAB PO SCH (09:04)
--- NOTE | 2018-07-19 13:16 | PN ---
Date/Time of Note Date/Time of Note DATE: 07/19/18 TIME: 13:15 Subjective Improving activity tolerance Objective Vital Signs Date Temp Pulse Resp B/P (MAP) Pulse Ox O2 O2 Flow FiO2 Time Delivery Rate 07/19/18 97.6 71 18 148/65 95 Room Air 08:00 (92) Intake and Output 07/18/18 07/18/18 07/19/18 1414:59 22:59 06:59 IntakeIntake Total 600 ml 180 ml BalanceBalance 600 ml 180 ml Exam pulm-cta min 20 feet Results/Medications Result Diagram: 07/18/18 0551 07/17/18 0633 Results 24 hrs Laboratory Tests Test 07/18/18 17:18 07/18/18 20:25 07/19/18 07:54 07/19/18 12:10 Bedside Glucose 129 152 230 H 123 Medications Current Medications Acetaminophen (Tylenol Tab) 650 mg Q4H PRN PO MILD PAIN(1-3)OR ELEVATED TEMP Last administered on 07/18/18at 20:26; Admin Dose 650 MG; Start 07/07/18 at 00:00 Bisacodyl (Dulcolax Supp) 10 mg DAILY PRN [place] CONSTIPATION Last administered on 07/13/18 17:32; Admin Dose 10 MG; Start 07/07/18 at 00:00 Calcium Carbonate (Tums) 1,000 mg Q4H PRN PO Indigestion; Start 07/07/18 at 00:00 Citalopram Hydrobromide (Celexa) 40 mg HS PO Last administered on 07/18/18at 20:27; Admin Dose 40 MG; Start 07/07/18 at 21:00 Fenofibrate (Tricor) 145 mg DAILY PO Last administered on 07/19/18 09:03; Admin Dose 145 MG; Start 07/07/18 at 09:00 Folic Acid (Folic Acid) 1 mg DAILY PO Last administered on 07/19/18 09:03; Admi n Dose 1 MG; Start 07/07/18 at 09:00 Acetaminophen/ Hydrocodone Bitart ([place] (5/325)) 1 tab Q4H PRN PO Pain Last administered on 07/10/18at 20:39; Admin Dose 1 TAB; Start 07/07/18 at 00:00 Lacosamide (Vimpat Liq) 150 mg BID PO Last administered on 07/19/18 08:59; Admin Dose 150 MG; Start 07/07/18 at 09:00 Lamotrigine (Lamictal) 25 mg HS PO Last administered on 07/18/18 20:32; Admin Dose 25 MG; Start 07/07/18 at 21:00 Levetiracetam (Keppra) 1,000 mg DAILY PO Last administered on 07/19/18 09:03; Admin Dose 1,000 MG; Start 07/07/18 at 09:00 Levetiracetam (Keppra) 1,500 mg HS PO Last administered on 07/18/18 20:31; Admin Dose 1,500 MG; Start 07/07/18 at 21:00 Lidocaine (Lidoderm) 1 patch DAILY TD Last administered on 07/19/18 08:59; Admin Dose 1 PATCH; Start 07/07/18 at 09:00 Metoprolol Succinate (Toprol Xl) 100 mg DAILY PO Last administered on 07/19/18 09:03; Admin Dose 100 MG; Start 07/07/18 at 09:00 Ondansetron HCl (Zofran Tab) 4 mg Q6H PRN PO NAUSEA AND/OR VOMITING; Start at 00:00 Pantoprazole (Protonix Tab) 40 mg DAILY@06 PO Last administered on 07/19/18 05:53; Admin Dose 40 MG; Start 07/07/18 at 06:00 Insulin Aspart (Novolog Insulin Pen) NOVOLOG *MODERATE* ALGORITHM WITH MEALS BEDTIME SC Last administered on 07/19/18 07:56; Admin Dose 6 UNIT; Start 07/07/18 at 07:35 Miscellaneous Information 1 ea NOTE XX ; Start 07/07/18 at 01:00 Glucose (Glutose) 15 gm Q15M PRN PO DECREASED GLUCOSE; Start 07/07/18 at 01:00 Glucose (Glutose) 22.5 gm Q15M PRN PO DECREASED GLUCOSE; Start 07/07/18 at 01:00 Dextrose (D50w Syringe) 25 ml Q15M PRN IV DECREASED GLUCOSE; Start 07/07/18 at 01:00 Dextrose (D50w Syringe) 50 ml Q15M PRN IV DECREASED GLUCOSE; Start 07/07/18 at 01:00 Glucagon (Glucagen) 1 mg Q15M PRN IM DECREASED GLUCOSE; Start 07/07/18 at 01:00 Glucose (Glutose) 15 gm Q15M PRN BUCCAL DECREASED GLUCOSE; Start 07/07/18 at 01:00 Rosuvastatin Calcium (Crestor) 20 mg HS PO Last administered on 07/18/18 20:31; Admin Dose 20 MG; Start 07/07/18 at 21:00 Senna (Senokot) 1 tab HS PRN PO CONSTIPATION; Start 07/07/18 at 21:00 Magnesium Hydroxide (Milk Of Mag) 30 ml BID PRN PO CONSTIPATION; Start 07/07/18 at 03:30 Lactulose (Enulose) 20 gm DAILY PRN PO CONSTIPATION; Start 07/07/18 at 03:30 Simethicone (Mylicon) 160 mg Q6H PRN PO DISTENSION/GAS/BLOATING Last administered on 07/11/18at 14:54; Admin Dose 160 MG; Start 07/07/18 at 19:30 Miscellaneous Information (* Miscellaneous Pharmacy Order) The patient is on Trulic... ONCE XX ; Start 07/13/18 at 17:30 Non-Formulary Medication 1 ea Fr@1000 SC Last administered on 07/14/18 11:29; Admin Dose 1 EA; Start 07/14/18 at 10:00 Amlodipine Besylate (Norvasc) 5 mg DAILY PO Last administered on 07/18/18 08:29; Admin Dose 5 MG; Start 07/14/18 at 09:00 Benazepril HCl (Lotensin) 40 mg HS PO Last administered on 07/15/18 20:12; Admin Dose 40 MG; Start 07/14/18 at 21:00 Insulin Aspart (Novolog Insulin Pen) 20 unit WITH MEALS SC Last administered on 07/19/18 12:13; Admin Dose 20 UNIT; Start 07/15/18 at 17:35 Docusate Sodium (Colace) 100 mg QHS PO Last administered on 07/18/18 20:27; Admin Dose 100 MG; Start 07/15/18 at 21:00 Metformin HCl (Glucophage) 500 mg AC BREAKFAST PO Last administered on 07/19/18 07:55; Admin Dose 500 MG; Start 07/16/18 at 07:05 Magnesium Oxide (Mag-Ox 400) 400 mg DAILY PO Last administered on 07/19/18 09:04; Admin Dose 400 MG; Start 07/17/18 at 09:00 Diphenhydramine HCl (Benadryl) 25 mg BID PRN PO ITCHING Last administered on 07/18/18 20:26; Admin Dose 25 MG; Start 07/17/18 at 13:30 Melatonin (Melatonin) 10 mg HS PRN PO insomnia Last administered on 07/18/18 20:42; Admin Dose 10 MG; Start 07/17/18 at 19:00 Warfarin Sodium (Coumadin) 2 mg DAILY@1700 PO Last administered on 07/18/18 17:19; Admin Dose 2 MG; Start 07/18/18 at 17:00 Insulin Glargine (Lantus) 16 units DAILY@2000 SC Last administered on 07/18/18 20:33; Admin Dose 16 UNITS; Start 07/18/18 at 20:00 Assessment/Plan Additional Assessment/Plan Rehab- Toxic metabolic encephalopathy superimposed on history of CVA with residual right upper extremity weakness. Continue patient/team goals. Good progress. Will extend stay to meet LTGoals Status post fall with right upper extremity fracture, being managed conservatively. Seizure disorder. Diabetes mellitus type 2 with labile blood sugars. Hypertension. Hyperlipidemia. History of hypercoagulable state. History of arrhythmia, sick sinus syndrome and pacemaker placement. Status post sepsis and urinary tract infection. Acute on chronic kidney injury. TERESA PELLETIER MD July 19, 2018 13:16
[2018-07-19] MEDS: DIPHENHYDRAMINE 25 MG CAP PO PRN ×2 (13:44→20:39)
[2018-07-19 14:00] VITALS: BP 135/65; PULSE 71; RESP 18
[2018-07-19] MEDS: WARFARIN 2 MG TAB PO SCH (16:54)
[2018-07-19] MEDS: ACETAMINOPHEN 325 MG TAB PO PRN (16:54)
--- NOTE | 2018-07-19 17:32 | CONS ---
Assessment/Plan Assessment/Plan Problems: (1) Diabetes mellitus type 2 in nonobese Status: Chronic Comment: Adjust upward on the basal insulin slightly downward on the bolus insulin. Consultation Date/Type/Reason Admit Date/Time Jul 06, 2018 at 19:47 Initial Consult Date 07/12/18 Type of Consult Endocrinology Reason for Consultation Diabetes mellitus type 2 on multiple daily injection regimen and in combination with GLP-1 drug Requesting Provider: NAYELI CHAUDHARI DO Date/Time of Note DATE: 07/19/18 TIME: 17:31 24 HR Interval Summary Constitutional: no complaints Detailed Summary Neurologic: no complaints Endocrine: no complaints Exam/Review of Systems Exam Vitals Vital Signs Date Temp Pulse Resp B/P (MAP) Pulse Ox O2 O2 Flow FiO2 Time Delivery Rate 07/19/18 97.7 71 18 135/65 96 Room Air 14:00 (88) Intake and Output 07/18/18 07/18/18 07/19/18 1515:00 23:00 07:00 IntakeIntake Total 600 ml 180 ml BalanceBalance 600 ml 180 ml Exam No change in examination Results Result Diagram: 07/18/18 0551 07/17/18 0633 Results 24hrs Laboratory Tests Test 07/18/18 20:25 07/19/18 07:54 07/19/18 12:10 Bedside Glucose 152 230 H 123 Medications Medication Current Medications Acetaminophen (Tylenol Tab) 650 mg Q4H PRN PO MILD PAIN(1-3)OR ELEVATED TEMP Last administered on 07/19/18at 16:54; Admin Dose 650 MG; Start 07/07/18 at 00:00 Bisacodyl (Dulcolax Supp) 10 mg DAILY PRN [place] CONSTIPATION Last administered on 07/13/18at 17:32; Admin Dose 10 MG; Start 07/07/18 at 00:00 Calcium Carbonate (Tums) 1,000 mg Q4H PRN PO Indigestion; Start 07/07/18 at 00:00 Citalopram Hydrobromide (Celexa) 40 mg HS PO Last administered on 07/18/18at 20:27; Admin Dose 40 MG; Start 07/07/18 at 21:00 Fenofibrate (Tricor) 145 mg DAILY PO Last administered on 07/19/18at 09:03; Admin Dose 145 MG; Start 07/07/18 at 09:00 Folic Acid (Folic Acid) 1 mg DAILY PO Last administered on 07/19/18 09:03; Admin Dose 1 MG; Start 07/07/18 at 09:00 Acetaminophen/ Hydrocodone Bitart ([place] (5/325)) 1 tab Q4H PRN PO Pain Last administered on 07/10/18 20:39; Admin Dose 1 TAB; Start 07/07/18 at 00:00 Lacosamide (Vimpat Liq) 150 mg BID PO Last administered on 07/19/18 08:59; Admin Dose 150 MG; Start 07/07/18 at 09:00 Lamotrigine (Lamictal) 25 mg HS PO Last administered on 07/18/18 20:32; Admin Dose 25 MG; Start 07/07/18 at 21:00 Levetiracetam (Keppra) 1,000 mg DAILY PO Last administered on 07/19/18 09:03; Admin Dose 1,000 MG; Start 07/07/18 at 09:00 Levetiracetam (Keppra) 1,500 mg HS PO Last administered on 07/18/18 20:31; Admin Dose 1,500 MG; Start 07/07/18 at 21:00 Lidocaine (Lidoderm) 1 patch DAILY TD Last administered on 07/19/18 08:59; Admin Dose 1 PATCH; Start 07/07/18 at 09:00 Metoprolol Succinate (Toprol Xl) 100 mg DAILY PO Last administered on 07/19/18 09:03; Admin Dose 100 MG; Start 07/07/18 at 09:00 Ondansetron HCl (Zofran Tab) 4 mg Q6H PRN PO NAUSEA AND/OR VOMITING; Start 07/07/18 at 00:00 Pantoprazole (Protonix Tab) 40 mg DAILY@06 PO Last administered on 07/19/18 05:53; Admin Dose 40 MG; Start 07/07/18 at 06:00 Insulin Aspart (Novolog Insulin Pen) NOVOLOG *MODERATE* ALGORITHM WITH MEALS BEDTIME SC Last administered on 07/19/18 07:56; Admin Dose 6 UNIT; Start 07/07/18 at 07:35 Miscellaneous Information 1 ea NOTE XX ; Start 07/07/18 at 01:00 Glucose (Glutose) 15 gm Q15M PRN PO DECREASED GLUCOSE; Start 07/07/18 at 01:00 Glucose (Glutose) 22.5 gm Q15M PRN PO DECREASED GLUCOSE; Start 07/07/18 at 01:00 Dextrose (D50w Syringe) 25 ml Q15M PRN IV DECREASED GLUCOSE; Start 07/07/18 at 01:00 Dextrose (D50w Syringe) 50 ml Q15M PRN IV DECREASED GLUCOSE; Start 07/07/18 at 01:00 Glucagon (Glucagen) 1 mg Q15M PRN IM DECREASED GLUCOSE; Start 07/07/18 at 01:00 Glucose (Glutose) 15 gm Q15M PRN BUCCAL DECREASED GLUCOSE; Start 07/07/18 at 01:00 Rosuvastatin Calcium (Crestor) 20 mg HS PO Last administered on 07/18/18 20: 31; Admin Dose 20 MG; Start 07/07/18 at 21:00 Senna (Senokot) 1 tab HS PRN PO CONSTIPATION; Start 07/07/18 at 21:00 Magnesium Hydroxide (Milk Of Mag) 30 ml BID PRN PO CONSTIPATION; Start 07/07/18 at 03:30 Lactulose (Enulose) 20 gm DAILY PRN PO CONSTIPATION; Start 07/07/18 at 03:30 Simethicone (Mylicon) 160 mg Q6H PRN PO DISTENSION/GAS/BLOATING Last administered on 07/11/18at 14:54; Admin Dose 160 MG; Start 07/07/18 at 19:30 Miscellaneous Information (* Miscellaneous Pharmacy Order) The patient is on Trulic... ONCE XX ; Start 07/13/18 at 17:30 Non-Formulary Medication 1 ea Fr@1000 SC Last administered on 07/14/18at 11:29; Admin Dose 1 EA; Start 07/14/18 at 10:00 Amlodipine Besylate (Norvasc) 5 mg DAILY PO Last administered on 07/18/18 08:29; Admin Dose 5 MG; Start 07/14/18 at 09:00 Benazepril HCl (Lotensin) 40 mg HS PO Last administered on 07/15/18 20:12; Admin Dose 40 MG; Start 07/14/18 at 21:00 Insulin Aspart (Novolog Insulin Pen) 20 unit WITH MEALS SC Last administered on 07/19/18 12:13; Admin Dose 20 UNIT; Start 07/15/18 at 17:35 Docusate Sodium (Colace) 100 mg QHS PO Last administered on 07/18/18 20:27; Admin Dose 100 MG; Start 07/15/18 at 21:00 Metformin HCl (Glucophage) 500 mg AC BREAKFAST PO Last administered on 07/19/18 07:55; Admin Dose 500 MG; Start 07/16/18 at 07:05 Magnesium Oxide (Mag-Ox 400) 400 mg DAILY PO Last administered on 07/19/18 09:04; Admin Dose 400 MG; Start 07/17/18 at 09:00 Diphenhydramine HCl (Benadryl) 25 mg BID PRN PO ITCHING Last administered on 07/19/18 13:44; Admin Dose 25 MG; Start 07/17/18 at 13:30 Melatonin (Melatonin) 10 mg HS PRN PO insomnia Last administered on 07/18/18 20:42; Admin Dose 10 MG; Start 07/17/18 at 19:00 Warfarin Sodium (Coumadin) 2 mg DAILY@1700 PO Last administered on 07/19/18 16:54; Admin Dose 2 MG; Start 07/18/18 at 17:00 Insulin Glargine (Lantus) 16 units DAILY@2000 SC Last administered on 07/18/18 20:33; Admin Dose 16 UNITS; Start 07/18/18 at 20:00 FRANSISCO GAMBOA MD July 19, 2018 17:32
[2018-07-19 20:00] VITALS: BP 105/55; PULSE 60; RESP 18
[2018-07-19] MEDS ORDERED: INSULIN GLARGINE [LANTus] (100 UNITS/ML) SYG SC SCH (20:00)
[2018-07-19] MEDS: LAMOTRIGINE 25 MG TAB PO SCH (20:26)
[2018-07-19] MEDS: DOCUSATE SODIUM 100 MG CAP PO SCH (20:26)
[2018-07-19] MEDS: ROSUVASTATIN CALCIUM 40 MG TABLET PO SCH (20:27)
[2018-07-19] MEDS: CITALOPRAM 20 MG TAB PO SCH (20:28)
[2018-07-19] MEDS: BENAZEPRIL 40 MG TAB PO SCH (20:28)
[2018-07-19] MEDS: LEVETIRACETAM 750 MG TAB PO SCH (20:28)
[2018-07-19] MEDS: MELATONIN 5 MG TABLET PO PRN (20:39)
[2018-07-20 02:00] VITALS: BP 111/57; PULSE 63; RESP 18
[2018-07-20] MEDS: PANTOPRAZOLE (EC) 40 MG TAB PO SCH (06:38)
[2018-07-20 07:30] VITALS: BP 140/64; PULSE 70; RESP 20
[2018-07-20] MEDS: metFORMIN 500 MG TAB PO SCH (07:38)
[2018-07-20] MEDS: INSULIN ASPART [NOVOLOG] 3 ML PEN SC SCH ×7 (07:44→20:21)
[2018-07-20] MEDS: LIDOCAINE 5% PATCH TD SCH (08:27)
[2018-07-20] MEDS: LACOSAMIDE (100 MG/10 ML PO SYR) PO SCH ×2 (08:27→20:13)
[2018-07-20] MEDS: METOPROLOL (XL) 100 MG TAB PO SCH (08:28)
[2018-07-20] MEDS: FENOFIBRATE 145 MG TAB PO SCH (08:28)
[2018-07-20] MEDS: MAGNESIUM OXIDE 400 MG TAB PO SCH (08:28)
[2018-07-20] MEDS: FOLIC ACID 1 MG TAB PO SCH (08:28)
[2018-07-20] MEDS: AMLODIPINE 5 MG TAB PO SCH (08:28)
[2018-07-20] MEDS: LEVETIRACETAM 500 MG TAB PO SCH (08:28)
--- NOTE | 2018-07-20 10:15 | PN ---
DATE: 07/20/2018 SUBJECTIVE: The patient yesterday had an x-ray of her right humerus per request from her orthopedist as reported by patient. It showed a mildly displaced comminuted fracture of the right proximal shilpi ral shaft with inferior subluxation. No other events noted overnight. OBJECTIVE: VITAL SIGNS: Blood pressure is 140/64, respirations 20, pulse 70, temperature 98.1. HEENT: Head is normocephalic. NECK: Supple. HEART: Regular rate. LUNGS: Show diminished breath sounds at the base. ABDOMEN: Soft, nontender to palpation without rebound or guarding. EXTREMITIES: Negative for clubbing, cyanosis, no edema. DERMATOLOGIC: No rashes. MUSCULOSKELETAL: The patient has right shoulder tenderness, no change with a noted brace. NEUROLOGIC: No change in exam. MEDICATIONS: The patient's medications have been reviewed. LABORATORY DATA: Has been reviewed. ASSESSMENT AND PLAN: 1. Acute encephalopathy, etiology toxic metabolic. The patient's mental status is improving. Devi nue to monitor. 2. Right humeral fracture. The patient had a repeat x-ray which shows mild displacement. Will repo rt results to the patient's orthopedist. Continue pain control. Continue nonweightbearing status. 3. Sepsis secondary to urinary tract infection. Patient is completing antibiotic course. 4. Acute kidney injury on top of chronic kidney disease. Etiology is secondary to hemodynamics. Re nal function is improved. 5. Anemia. Monitor hemoglobin and hematocrit levels. 6. Mineral bone disorder, monitor calcium and phosphorus levels. 7. History of hypercoagulable state. The patient is currently on Coumadin. INR is below goal. Wilfredo l adjust Coumadin regimen. 8. Sick sinus syndrome, status post pacemaker. 9. Diabetes. Continue current insulin regimen. 10. Hypertension. Continue current blood pressure regimen. 11. Seizures , continue Keppra. 12. Dyslipidemia. Continue statin therapy. 13. Insomnia. Continue melatonin. 14. Pruritis, continue Benadryl. 15. Constipation. Continue current bowel regimen. 16. Gastrointestinal and deep vein thrombosis prophylaxis. Dictated By: NAYELI CHADUHARI DO NR/NTS Conf#: [id number] DID#: [id number] CC: SHIRA LU DO; FRANSISCO GAMBOA MD; TERESA PELLETIER MD;*EndCC*
[2018-07-20] MEDS: ACETAMINOPHEN 325 MG TAB PO PRN (11:18)
--- NOTE | 2018-07-20 11:33 | PN ---
Date/Time of Note Date/Time of Note DATE: 07/20/18 TIME: 11:33 Subjective Improved activity tolerance Objective Vital Signs Date Temp Pulse Resp B/P (MAP) Pulse Ox O2 O2 Flow FiO2 Time Delivery Rate 07/20/18 98.1 70 20 140/64 95 Room Air 07:30 (89) Intake and Output 07/19/18 07/19/18 07/20/18 1515:00 23:00 07:00 IntakeIntake Total 500 ml BalanceBalance 500 ml Exam pulm-cta min 35 feet Results/Medications Result Diagram: 07/18/18 0551 07/17/18 0633 Results 24 hrs Laboratory Tests Test 07/19/18 12:10 07/19/18 17:29 07/19/18 21:27 07/20/18 06:03 Bedside Glucose 123 146 174 Prothrombin Time 21.4 #H Prothrombin Time Ratio 1.7 INR International 1.85 Normalized Ratio Test 07/20/18 07:39 Bedside Glucose 227 H Medications Current Medications Acetaminophen (Tylenol Tab) 650 mg Q4H PRN PO MILD PAIN(1-3)OR ELEVATED TEMP Last administered on 07/20/18 11:18; Admin Dose 650 MG; Start 07/07/18 at 00:00 Bisacodyl (Dulcolax Supp) 10 mg DAILY PRN [place] CONSTIPATION Last administered on 07/13/18 17:32; Admin Dose 10 MG; Start 07/07/18 at 00:00 Calcium Carbonate (Tums) 1,000 mg Q4H PRN PO Indigestion; Start 07/07/18 at 00:00 Citalopram Hydrobromide (Celexa) 40 mg HS PO Last administered on 07/19/18 2 0:28; Admin Dose 40 MG; Start 07/07/18 at 21:00 Fenofibrate (Tricor) 145 mg DAILY PO Last administered on 07/20/18 08:28; Admin Dose 145 MG; Start 07/07/18 at 09:00 Folic Acid (Folic Acid) 1 mg DAILY PO Last administered on 07/20/18 08:28; Admin Dose 1 MG; Start 07/07/18 at 09:00 Acetaminophen/ Hydrocodone Bitart (Alpha (5/325)) 1 tab Q4H PRN PO Pain Last administered on 07/10/18 20:39; Admin Dose 1 TAB; Start 07/07/18 at 00:00 Lacosamide (Vimpat Liq) 150 mg BID PO Last administered on 07/20/18 08:27; Admin Dose 150 MG; Start 07/07/18 at 09:00 Lamotrigine (Lamictal) 25 mg HS PO Last administered on 07/19/18 20:26; Admin Dose 25 MG; Start 07/07/18 at 21:00 Levetiracetam (Keppra) 1,000 mg DAILY PO Last administered on 07/20/18 08:28; Admin Dose 1,000 MG; Start 07/07/18 at 09:00 Levetiracetam (Keppra) 1,500 mg HS PO Last administered on 07/19/18 20:28; Admin Dose 1,500 MG; Start 07/07/18 at 21:00 Lidocaine (Lidoderm) 1 patch DAILY TD Last administered on 07/20/18 08:27; Admin Dose 1 PATCH; Start 07/07/18 at 09:00 Metoprolol Succinate (Toprol Xl) 100 mg DAILY PO Last administered on 07/20/18 08:28; Admin Dose 100 MG; Start 07/07/18 at 09:00 Ondansetron HCl (Zofran Tab) 4 mg Q6H PRN PO NAUSEA AND/OR VOMITING; Start 07/07/18 at 00:00 Pantoprazole (Protonix Tab) 40 mg DAILY@06 PO Last administered on 07/20/18 06:38; Admin Dose 40 MG; Start 07/07/18 at 06:00 Insulin Aspart (Novolog Insulin Pen) NOVOLOG *MODERATE* ALGORITHM WITH MEALS BEDTIME SC Last administered on 07/20/18 07:44; Admin Dose 6 UNIT; Start 07/07/18 at 07:35 Miscellaneous Information 1 ea NOTE XX ; Start 07/07/18 at 01:00 Glucose (Glutose) 15 gm Q15M PRN PO DECREASED GLUCOSE; Start 07/07/18 at 01:00 Glucose (Glutose) 22.5 gm Q15M PRN PO DECREASED GLUCOSE; Start 07/07/18 at 01:00 Dextrose (D50w Syringe) 25 ml Q15M PRN IV DECREASED GLUCOSE; Start 07/07/18 at 01:00 Dextrose (D50w Syringe) 50 ml Q15M PRN IV DECREASED GLUCOSE; Start 07/07/18 at 01:00 Glucagon (Glucagen) 1 mg Q15M PRN IM DECREASED GLUCOSE; Start 07/07/18 at 01:00 Glucose (Glutose) 15 gm Q15M PRN BUCCAL DECREASED GLUCOSE; Start 07/07/18 at 01:00 Rosuvastatin Calcium (Crestor) 20 mg HS PO Last administered on 07/19/18 20:27; Admin Dose 20 MG; Start 07/07/18 at 21:00 Senna (Senokot) 1 tab HS PRN PO CONSTIPATION; Start 07/07/18 at 21:00 Magnesium Hydroxide (Milk Of Mag) 30 ml BID PRN PO CONSTIPATION; Start 07/07/18 at 03:30 Lactulose (Enulose) 20 gm DAILY PRN PO CONSTIPATION; Start 07/07/18 at 03:30 Simethicone (Mylicon) 160 mg Q6H PRN PO DISTENSION/GAS/BLOATING Last administered on 07/11/18 14:54; Admin Dose 160 MG; Start 07/07/18 at 19:30 Miscellaneous Information (* Miscellaneous Pharmacy Order) The patient is on Trulic... ONCE XX ; Start 07/13/18 at 17:30 Non-Formulary Medication 1 ea Fr@1000 SC Last administered on 07/14/18 11:29; Admin Dose 1 EA; Start 07/14/18 at 10:00 Amlodipine Besylate (Norvasc) 5 mg DAILY PO Last administered on 07/18/18 08:29; Admin Dose 5 MG; Start 07/14/18 at 09:00 Benazepril HCl (Lotensin) 40 mg HS PO Last administered on 07/15/18 20:12; Admin Dose 40 MG; Start 07/14/18 at 21:00 Docusate Sodium (Colace) 100 mg QHS PO Last administered on 07/19/18 20:26; Admin Dose 100 MG; Start 07/15/18 at 21:00 Metformin HCl (Glucophage) 500 mg AC BREAKFAST PO Last administered on 07/20/18 07:38; Admin Dose 500 MG; Start 07/16/18 at 07:05 Magnesium Oxide (Mag-Ox 400) 400 mg DAILY PO Last administered on 5/2/19at 08:28; Admin Dose 400 MG; Start 07/17/18 at 09:00 Diphenhydramine HCl (Benadryl) 25 mg BID PRN PO ITCHING Last administered on 07/19/18 20:39; Admin Dose 25 MG; Start 07/17/18 at 13:30 Melatonin (Melatonin) 10 mg HS PRN PO insomnia Last administered on 07/19/18 20:39; Admin Dose 10 MG; Start 07/17/18 at 19:00 Insulin Aspart (Novolog Insulin Pen) 18 unit WITH MEALS SC Last administered on 07/20/18 07:45; Admin Dose 18 UNIT; Start 07/19/18 at 17:35 Insulin Glargine (Lantus) 20 units DAILY@2000 SC Last administered on 07/19/18 21:28; Admin Dose 20 UNITS; Start 07/19/18 at 20:00 Warfarin Sodium (Coumadin) 3 mg DAILY@1700 PO ; Start 07/20/18 at 17:00 Assessment/Plan Additional Assessment/Plan Rehab- Toxic metabolic encephalopathy superimposed on history of CVA with residual right upper extremity weakness. Continue rehab, good progress Status post fall with right upper extremity fracture, being managed conservatively. Seizure disorder. Diabetes mellitus type 2 with labile blood sugars. Hypertension. Hyperlipidemia. History of hypercoagulable state. History of arrhythmia, sick sinus syndrome and pacemaker placement. Status post sepsis and urinary tract infection. Acute on chronic kidney injury. TERESA PELLETIER MD July 20, 2018 11:33
--- NOTE | 2018-07-20 13:15 | CONS ---
Assessment/Plan Assessment/Plan Problems: (1) Diabetes mellitus type 2 in nonobese Status: Chronic Comment: Further adjust upward on the basal insulin and slightly down word on the mealtime insulin to avoid postmeal hypoglycemia Consultation Date/Type/Reason Admit Date/Time Jul 06, 2018 at 19:47 Initial Consult Date 07/12/18 Type of Consult Endocrinology Reason for Consultation Diabetes mellitus type 2 Requesting Provider: NAYELI CHAUDHARI DO Date/Time of Note DATE: 07/20/18 TIME: 13:14 24 HR Interval Summary Free Text/Dictation Patient does note morning sugars are higher than the rest of the day Detailed Summary Endocrine: no complaints Exam/Review of Systems Exam Vitals Vital Signs Date Temp Pulse Resp B/P (MAP) Pulse Ox O2 O2 Flow FiO2 Time Delivery Rate 07/20/18 98.1 70 20 140/64 95 Room Air 07:30 (89) Intake and Output 07/19/18 07/19/18 07/20/18 1515:00 23:00 07:00 IntakeIntake Total 500 ml BalanceBalance 500 ml Exam No change in examination Results Result Diagram: 07/18/18 0551 07/17/18 0633 Results 24hrs Laboratory Tests Test 07/19/18 17:29 07/19/18 21:27 07/20/18 06:03 07/20/18 07:39 Bedside Glucose 146 174 227 H Prothrombin Time 21.4 #H Prothrombin Time Ratio 1.7 INR International 1.85 Normalized Ratio Test 07/20/18 12:00 Bedside Glucose 169 Medications Medication Current Medications Acetaminophen (Tylenol Tab) 650 mg Q4H PRN PO MILD PAIN(1-3)OR ELEVATED TEMP Last administered on 07/20/18at 11:18; Admin Dose 650 MG; Start 07/07/18 at 00:00 Bisacodyl (Dulcolax Supp) 10 mg DAILY PRN [place] CONSTIPATION Last administered on 07/13/18at 17:32; Admin Dose 10 MG; Start 07/07/18 at 00:00 Calcium Carbonate (Tums) 1,000 mg Q4H PRN PO Indigestion; Start 07/07/18 at 00:00 Citalopram Hydrobromide (Celexa) 40 mg HS PO Last administered on 07/19/18at 20:28; Admin Dose 40 MG; Start 07/07/18 at 21:00 Fenofibrate (Tricor) 145 mg DAILY PO Last administered on 07/20/18 08:28; Admin Dose 145 MG; Start 07/07/18 at 09:00 Folic Acid (Folic Acid) 1 mg DAILY PO Last administered on 07/20/18 08:28; Admi n Dose 1 MG; Start 07/07/18 at 09:00 Acetaminophen/ Hydrocodone Bitart (Rice (5/325)) 1 tab Q4H PRN PO Pain Last administered on 07/10/18 20:39; Admin Dose 1 TAB; Start 07/07/18 at 00:00 Lacosamide (Vimpat Liq) 150 mg BID PO Last administered on 07/20/18 08:27; Admin Dose 150 MG; Start 07/07/18 at 09:00 Lamotrigine (Lamictal) 25 mg HS PO Last administered on 07/19/18 20:26; Admin Dose 25 MG; Start 07/07/18 at 21:00 Levetiracetam (Keppra) 1,000 mg DAILY PO Last administered on 07/20/18 08:28; Admin Dose 1,000 MG; Start 07/07/18 at 09:00 Levetiracetam (Keppra) 1,500 mg HS PO Last administered on 07/19/18 20:28; Admin Dose 1,500 MG; Start 07/07/18 at 21:00 Lidocaine (Lidoderm) 1 patch DAILY TD Last administered on 07/20/18 08:27; Admin Dose 1 PATCH; Start 07/07/18 at 09:00 Metoprolol Succinate (Toprol Xl) 100 mg DAILY PO Last administered on 07/20/18 08:28; Admin Dose 100 MG; Start 07/07/18 at 09:00 Ondansetron HCl (Zofran Tab) 4 mg Q6H PRN PO NAUSEA AND/OR VOMITING; Start 07/07/18 at 00:00 Pantoprazole (Protonix Tab) 40 mg DAILY@06 PO Last administered on 07/20/18 06:38; Admin Dose 40 MG; Start 07/07/18 at 06:00 Insulin Aspart (Novolog Insulin Pen) NOVOLOG *MODERATE* ALGORITHM WITH MEALS BEDTIME SC Last administered on 07/20/18 12:22; Admin Dose 2 UNIT; Start 07/07/18 at 07:35 Miscellaneous Information 1 ea NOTE XX ; Start 07/07/18 at 01:00 Glucose (Glutose) 15 gm Q15M PRN PO DECREASED GLUCOSE; Start 07/07/18 at 01:00 Glucose (Glutose) 22.5 gm Q15M PRN PO DECREASED GLUCOSE; Start 07/07/18 at 01:00 Dextrose (D50w Syringe) 25 ml Q15M PRN IV DECREASED GLUCOSE; Start 07/07/18 at 01:00 Dextrose (D50w Syringe) 50 ml Q15M PRN IV DECREASED GLUCOSE; Start 07/07/18 at 01:00 Glucagon (Glucagen) 1 mg Q15M PRN IM DECREASED GLUCOSE; Start 07/07/18 at 01:00 Glucose (Glutose) 15 gm Q15M PRN BUCCAL DECREASED GLUCOSE; Start 07/07/18 at 01:00 Rosuvastatin Calcium (Crestor) 20 mg HS PO Last administered on 07/19/18at 20:27; Admin Dose 20 MG; Start 07/07/18 at 21:00 Senna (Senokot) 1 tab HS PRN PO CONSTIPATION; Start 07/07/18 at 21:00 Magnesium Hydroxide (Milk Of Mag) 30 ml BID PRN PO CONSTIPATION; Start 07/07/18 at 03:30 Lactulose (Enulose) 20 gm DAILY PRN PO CONSTIPATION; Start 07/07/18 at 03:30 Simethicone (Mylicon) 160 mg Q6H PRN PO DISTENSION/GAS/BLOATING Last administered on 07/11/18at 14:54; Admin Dose 160 MG; Start 07/07/18 at 19:30 Miscellaneous Information (* Miscellaneous Pharmacy Order) The patient is on Trulic... ONCE XX ; Start 07/13/18 at 17:30 Non-Formulary Medication 1 ea Fr@1000 SC Last administered on 07/14/18at 11:29; Admin Dose 1 EA; Start 07/14/18 at 10:00 Amlodipine Besylate (Norvasc) 5 mg DAILY PO Last administered on 07/18/18at 0 8:29; Admin Dose 5 MG; Start 07/14/18 at 09:00 Benazepril HCl (Lotensin) 40 mg HS PO Last administered on 07/15/18at 20:12; Admin Dose 40 MG; Start 07/14/18 at 21:00 Docusate Sodium (Colace) 100 mg QHS PO Last administered on 07/19/18at 20:26; Admin Dose 100 MG; Start 07/15/18 at 21:00 Metformin HCl (Glucophage) 500 mg AC BREAKFAST PO Last administered on 07/20/18at 07:38; Admin Dose 500 MG; Start 07/16/18 at 07:05 Magnesium Oxide (Mag-Ox 400) 400 mg DAILY PO Last administered on 07/20/18at 08:28; Admin Dose 400 MG; Start 07/17/18 at 09:00 Diphenhydramine HCl (Benadryl) 25 mg BID PRN PO ITCHING Last administered on 07/19/18at 20:39; Admin Dose 25 MG; Start 07/17/18 at 13:30 Melatonin (Melatonin) 10 mg HS PRN PO insomnia Last administered on 07/19/18at 20:39; Admin Dose 10 MG; Start 07/17/18 at 19:00 Warfarin Sodium (Coumadin) 3 mg DAILY@1700 PO ; Start 07/20/18 at 17:00 Insulin Aspart (Novolog Insulin Pen) 17 unit WITH MEALS SC ; Start 07/20/18 at 17:35; Status UNV Insulin Glargine (Lantus) 23 units DAILY@2000 SC ; Start 07/20/18 at 20:00; Status FRANSISCO ERVIN MD July 20, 2018 13:15
[2018-07-20 14:30] VITALS: BP 139/63; PULSE 67; RESP 18
[2018-07-20] MEDS: WARFARIN 3 MG TAB PO SCH (17:16)
[2018-07-20 20:00] VITALS: BP 133/58; PULSE 71; RESP 18
[2018-07-20] MEDS ORDERED: INSULIN GLARGINE [LANTus] (100 UNITS/ML) SYG SC SCH (20:00)
[2018-07-20] MEDS: LEVETIRACETAM 750 MG TAB PO SCH (20:12)
[2018-07-20] MEDS: MELATONIN 5 MG TABLET PO PRN (20:15)
[2018-07-20] MEDS: ROSUVASTATIN CALCIUM 40 MG TABLET PO SCH (20:15)
[2018-07-20] MEDS: LAMOTRIGINE 25 MG TAB PO SCH (20:15)
[2018-07-20] MEDS: BENAZEPRIL 40 MG TAB PO SCH (20:16)
[2018-07-20] MEDS: CITALOPRAM 20 MG TAB PO SCH (20:16)
[2018-07-20] MEDS: DOCUSATE SODIUM 100 MG CAP PO SCH (20:16)
[2018-07-20] MEDS: DIPHENHYDRAMINE 25 MG CAP PO PRN (20:18)
[2018-07-21] MEDS: HYDROCODONE/APAP (5/325) TAB PO PRN ×3 (00:08→17:25)
[2018-07-21] MEDS: PANTOPRAZOLE (EC) 40 MG TAB PO SCH (06:06)
[2018-07-21 07:30] VITALS: BP 143/65; PULSE 73; RESP 18
[2018-07-21] MEDS: INSULIN ASPART [NOVOLOG] 3 ML PEN SC SCH ×7 (08:01→21:00)
[2018-07-21] MEDS: metFORMIN 500 MG TAB PO SCH (08:02)
[2018-07-21] MEDS: METOPROLOL (XL) 100 MG TAB PO SCH (08:20)
[2018-07-21] MEDS: FENOFIBRATE 145 MG TAB PO SCH (08:21)
[2018-07-21] MEDS: FOLIC ACID 1 MG TAB PO SCH (08:21)
[2018-07-21] MEDS: LIDOCAINE 5% PATCH TD SCH (08:21)
[2018-07-21] MEDS: LEVETIRACETAM 500 MG TAB PO SCH (08:21)
[2018-07-21] MEDS: MAGNESIUM OXIDE 400 MG TAB PO SCH (08:21)
[2018-07-21] MEDS: LACOSAMIDE (100 MG/10 ML PO SYR) PO SCH ×2 (08:22→20:38)
[2018-07-21] MEDS: AMLODIPINE 5 MG TAB PO SCH (09:00)
--- NOTE | 2018-07-21 09:04 | PN ---
DATE: 07/21/2018 SUBJECTIVE: The patient is stable, no events overnight. No fevers, chills, nausea, or vomiting. OBJECTIVE: VITAL SIGNS: Blood pressure is 133/58, pulse 78, respirations 18, temperature 97.9. HEENT: Head is normocephalic. NECK: Supple. HEART: Regular rate. LUNGS: Show diminished breath sounds at the base. ABDOMEN: Soft, nontender to palpation without rebound or guarding. EXTREMITIES: Negative for clubbing, cyanosis, no edema. DERMATOLOGIC: No rashes. MUSCULOSKELETAL: No joint effusion. NEUROLOGIC: No change in exam. MEDICATIONS: Reviewed. LABORATORY DATA: From 07/21/2018 was reviewed. INR was reviewed. ASSESSMENT AND PLAN: 1. Acute encephalopathy, etiology is toxic metabolic. The patient's mental status is improved. Con tinue to monitor. 2. Right humeral fracture. The patient's repeat x-ray shows mild displacement. The results were fa xed to outpatient orthopedist. Continue pain control. Continue to non-weightbearing status. 3. Sepsis secondary to urinary tract infection. The patient is completing antibiotic course. 4. Acute kidney injury on top of chronic kidney disease. Etiology is secondary to hemodynamics. Re nal function is improved. Continue to monitor. 5. Anemia. Monitor hemoglobin and hematocrit levels. 6. Mineral bone disorder. Monitor calcium and phosphorus levels. 7. Hypercoagulable state. The patient's INR is at goal. Coumadin was adjusted. We will repeat INR in a.m. and adjust Coumadin as needed. 8. Sick sinus syndrome, status post pacemaker. 9. Diabetes. Continue current insulin regimen. Appreciate endocrinology's help with management. 10. Hypertension. Continue current blood pressure regimen. 11. Seizure disorder. Continue Keppra. 12. Dyslipidemia. Continue statin therapy. 13. Insomnia. Continue melatonin. 14. Pruritus, improving. Continue Benadryl. 15. Constipation. Continue current bowel regimen. 16. Gastrointestinal and deep vein thrombosis prophylaxis. Dictated By: NAYELI CHAUDHARI DO NR/NTS Conf#: [id number] DID#: [id number] CC: TERESA PELLETIER MD; FRANSISCO GAMBOA MD; SHIRA LU DO;*EndCC*
[2018-07-21] MEDS: DIPHENHYDRAMINE 25 MG CAP PO PRN ×2 (10:03→20:35)
[2018-07-21] MEDS: TRULICITY 0.75 MG/0.5 ML SC SCH (10:17)
--- NOTE | 2018-07-21 10:19 | PN ---
Date/Time of Note Date/Time of Note DATE: 07/21/18 TIME: 10:18 Subjective Patient with improved activity tolerance Objective Vital Signs Date Temp Pulse Resp B/P (MAP) Pulse Ox O2 O2 Flow FiO2 Time Delivery Rate 07/21/18 97.8 73 18 143/65 97 Room Air 07:30 (91) Intake and Output 07/20/18 07/20/18 07/21/18 1515:00 23:00 07:00 IntakeIntake Total 200 ml BalanceBalance 200 ml Exam pulm-cta abd-soft min 40 feet Results/Medications Result Diagram: 07/18/18 0551 07/17/18 0633 Results 24 hrs Laboratory Tests Test 07/20/18 12:00 07/20/18 17:16 07/20/18 20:09 07/21/18 07:05 Bedside Glucose 169 191 163 Prothrombin Time 21.4 H Prothrombin Time Ratio 1.7 INR International 1.85 Normalized Ratio Test 07/21/18 07:59 Bedside Glucose 223 H Medications Current Medications Acetaminophen (Tylenol Tab) 650 mg Q4H PRN PO MILD PAIN(1-3)OR ELEVATED TEMP Last administered on 07/20/18 11:18; Admin Dose 650 MG; Start 07/07/18 at 00:00 Bisacodyl (Dulcolax Supp) 10 mg DAILY PRN [place] CONSTIPATION Last administered on 07/13/18 17:32; Admin Dose 10 MG; Start 07/07/18 at 00:00 Calcium Carbonate (Tums) 1,000 mg Q4H PRN PO Indigestion; Start 07/07/18 at 00:00 Citalopram Hydrobromide (Celexa) 40 mg HS PO Last administered on 07/20/18 20:16; Admin Dose 40 MG; Start 07/07/18 at 21:00 Fenofibrate (Tricor) 145 mg DAILY PO Last administered on 07/21/18 08:21; Admin Dose 145 MG; Start 07/07/18 at 09:00 Folic Acid (Folic Acid) 1 mg DAILY PO Last administered on 07/21/18 08:21; Admin Dose 1 MG; Start 07/07/18 at 09:00 Acetaminophen/ Hydrocodone Bitart (Grant (5/325)) 1 tab Q4H PRN PO Pain Last administered on 07/21/18 08:30; Admin Dose 1 TAB; Start 07/07/18 at 00:00 Lacosamide (Vimpat Liq) 150 mg BID PO Last administered on 07/21/18 08:22; Admin Dose 150 MG; Start 07/07/18 at 09:00 Lamotrigine (Lamictal) 25 mg HS PO Last administered on 07/20/18 20:15; Admin Dose 25 MG; Start 07/07/18 at 21:00 Levetiracetam (Keppra) 1,000 mg DAILY PO Last administered on 07/21/18 08:21; Admin Dose 1,000 MG; Start 07/07/18 at 09:00 Levetiracetam (Keppra) 1,500 mg HS PO Last administered on 07/20/18 20:12; Admin Dose 1,500 MG; Start 07/07/18 at 21:00 Lidocaine (Lidoderm) 1 patch DAILY TD Last administered on 07/21/18 08:21; Admin Dose 1 PATCH; Start 07/07/18 at 09:00 Metoprolol Succinate (Toprol Xl) 100 mg DAILY PO Last administered on 07/21/18 08:20; Admin Dose 100 MG; Start 07/07/18 at 09:00 Ondansetron HCl (Zofran Tab) 4 mg Q6H PRN PO NAUSEA AND/OR VOMITING; Start 07/07/18 at 00:00 Pantoprazole (Protonix Tab) 40 mg DAILY@06 PO Last administered on 07/21/18 06:06; Admin Dose 40 MG; Start 07/07/18 at 06:00 Insulin Aspart (Novolog Insulin Pen) NOVOLOG *MODERATE* ALGORITHM WITH MEALS BEDTIME SC Last administered on 07/21/18 08:01; Admin Dose 4 UNIT; Start 07/07/18 at 07:35 Miscellaneous Information 1 ea NOTE XX ; Start 07/07/18 at 01:00 Glucose (Glutose) 15 gm Q15M PRN PO DECREASED GLUCOSE; Start 07/07/18 at 01:00 Glucose (Glutose) 22.5 gm Q15M PRN PO DECREASED GLUCOSE; Start 07/07/18 at 01:0 0 Dextrose (D50w Syringe) 25 ml Q15M PRN IV DECREASED GLUCOSE; Start 07/07/18 at 01:00 Dextrose (D50w Syringe) 50 ml Q15M PRN IV DECREASED GLUCOSE; Start 07/07/18 at 01:00 Glucagon (Glucagen) 1 mg Q15M PRN IM DECREASED GLUCOSE; Start 07/07/18 at 01:00 Glucose (Glutose) 15 gm Q15M PRN BUCCAL DECREASED GLUCOSE; Start 07/07/18 at 01:00 Rosuvastatin Calcium (Crestor) 20 mg HS PO Last administered on 07/20/18 20:15; Admin Dose 20 MG; Start 07/07/18 at 21:00 Senna (Senokot) 1 tab HS PRN PO CONSTIPATION; Start 07/07/18 at 21:00 Magnesium Hydroxide (Milk Of Mag) 30 ml BID PRN PO CONSTIPATION; Start 07/07/18 at 03:30 Lactulose (Enulose) 20 gm DAILY PRN PO CONSTIPATION; Start 07/07/18 at 03:30 Simethicone (Mylicon) 160 mg Q6H PRN PO DISTENSION/GAS/BLOATING Last administered on 07/11/18 14:54; Admin Dose 160 MG; Start 07/07/18 at 19:30 Miscellaneous Information (* Miscellaneous Pharmacy Order) The patient is on Trulic... ONCE XX ; Start 07/13/18 at 17:30 Non-Formulary Medication 1 ea Fr@1000 SC Last administered on 07/21/18 10:17; Admin Dose 1 EA; Start 07/14/18 at 10:00 Amlodipine Besylate (Norvasc) 5 mg DAILY PO Last administered on 07/18/18 08:29; Admin Dose 5 MG; Start 07/14/18 at 09:00 Benazepril HCl (Lotensin) 40 mg HS PO Last administered on 07/20/18 20:16; Admin Dose 40 MG; Start 07/14/18 at 21:00 Docusate Sodium (Colace) 100 mg QHS PO Last administered on 07/20/18 20:16; Admin Dose 100 MG; Start 07/15/18 at 21:00 Metformin HCl (Glucophage) 500 mg AC BREAKFAST PO Last administered on 07/21/18 08:02; Admin Dose 500 MG; Start 07/16/18 at 07:05 Magnesium Oxide (Mag-Ox 400) 400 mg DAILY PO Last administered on 07/21/18 08:21; Admin Dose 400 MG; Start 07/17/18 at 09:00 Diphenhydramine HCl (Benadryl) 25 mg BID PRN PO ITCHING Last administered on 07/21/18 10:03; Admin Dose 25 MG; Start 07/17/18 at 13:30 Melatonin (Melatonin) 10 mg HS PRN PO insomnia Last administered on 07/20/18 20:15; Admin Dose 10 MG; Start 07/17/18 at 19:00 Warfarin Sodium (Coumadin) 3 mg DAILY@1700 PO Last administered on 07/20/18 17:16; Admin Dose 3 MG; Start 07/20/18 at 17:00 Insulin Aspart (Novolog Insulin Pen) 17 unit WITH MEALS SC Last administered on 07/21/18 08:02; Admin Dose 17 UNIT; Start 07/20/18 at 17:35 Insulin Glargine (Lantus) 23 units DAILY@2000 SC Last administered on 07/20/18 20:21; Admin Dose 23 UNITS; Start 07/20/18 at 20:00 Assessment/Plan Additional Assessment/Plan Rehab- Toxic metabolic encephalopathy superimposed on history of CVA with residual right upper extremity weakness. Continue rehab treatment plan Status post fall with right upper extremity fracture, being managed conservatively. Seizure disorder. Diabetes mellitus type 2 with labile blood sugars. Hypertension. Hyperlipidemia. History of hypercoagulable state. History of arrhythmia, sick sinus syndrome and pacemaker placement. Status post sepsis and urinary tract infection. Acute on chronic kidney injury. TERESA PELLETIER MD July 21, 2018 10:19
[2018-07-21 14:00] VITALS: BP 104/54; PULSE 70; RESP 18
[2018-07-21] MEDS: WARFARIN 3 MG TAB PO SCH (17:26)
[2018-07-21 19:51] VITALS: BP_SYST 119; BP_SYST 160; BP_DIAS 65; BP_DIAS 68; PULSE 55; RESP 18
[2018-07-21] MEDS: INSULIN GLARGINE [LANTus] (100 UNITS/ML) SYG SC SCH (20:00)
[2018-07-21] MEDS: ROSUVASTATIN CALCIUM 40 MG TABLET PO SCH (20:30)
[2018-07-21] MEDS: DOCUSATE SODIUM 100 MG CAP PO SCH (20:30)
[2018-07-21] MEDS: LEVETIRACETAM 750 MG TAB PO SCH (20:31)
[2018-07-21] MEDS: BENAZEPRIL 40 MG TAB PO SCH (20:31)
[2018-07-21] MEDS: CITALOPRAM 20 MG TAB PO SCH (20:32)
[2018-07-21] MEDS: LAMOTRIGINE 25 MG TAB PO SCH (20:32)
[2018-07-21] MEDS: MELATONIN 5 MG TABLET PO PRN (20:35)
[2018-07-22 02:38] VITALS: BP 151/67; PULSE 70; RESP 18
[2018-07-22] MEDS: PANTOPRAZOLE (EC) 40 MG TAB PO SCH (06:47)
[2018-07-22] MEDS: metFORMIN 500 MG TAB PO SCH (08:36)
[2018-07-22] MEDS: INSULIN ASPART [NOVOLOG] 3 ML PEN SC SCH ×7 (08:38→20:22)
[2018-07-22] MEDS: LACOSAMIDE (100 MG/10 ML PO SYR) PO SCH ×2 (08:42→20:22)
[2018-07-22] MEDS: MAGNESIUM OXIDE 400 MG TAB PO SCH (08:44)
[2018-07-22] MEDS: LEVETIRACETAM 500 MG TAB PO SCH (08:44)
[2018-07-22] MEDS: FOLIC ACID 1 MG TAB PO SCH (08:44)
[2018-07-22] MEDS: FENOFIBRATE 145 MG TAB PO SCH (08:44)
[2018-07-22] MEDS: LIDOCAINE 5% PATCH TD SCH (08:45)
[2018-07-22] MEDS: METOPROLOL (XL) 100 MG TAB PO SCH (08:48)
--- NOTE | 2018-07-22 08:55 | PSY ---
Date/Time of Note Date/Time of Note DATE: 07/22/18 TIME: 08:53 Psychiatric Subjective Eval Consent Pt consented to telemedicine: No Subjective Evaluation Patient location: inpatient History of present illness Patient is a 73-year-old female with a past medical history of seizure , hypertension, cerebrovascular accident with right-sided weakness, arrhythmia, diabetes, dyslipidemia, and pacemaker placement. [id number] evaluation, states she has good days and bad days, states she was increasingly depressed yesterday because of losing her independence and not being able to do what she is used to doing. Discussed risk and benefits of antidepressants and patient verbalized understanding. 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 Status: Chronic (6) Major depressive disorder, recurrent, moderate Status: Chronic (7) Right humeral fracture Status: Acute (8) Seizure disorder Status: Chronic (9) Toxic metabolic encephalopathy Status: Acute Allergies: Coded Allergies: Penicillins (Verified Allergy, Unknown, 07/06/18) Substance Abuse Substance use: other Substance abuse history: No Prior substance abuse treatmen: No Social History Marital status: other DPA/Conservatorship: No Psychiatric Objective Eval Physical Examination: Appetite: Decreased Energy: Decreased Interest: Decreased Mental Status Examination: Appearance: Groomed Eye Contact: Fair Psychomotor Activity: Normal Behavior: Cooperative Speech: Clear AFFECT: Flat Mood: Depressed Though Process: Linear Thought Content: Normal Orientation: x4 Cognition: Alert Insight: Intact Judgement: Intact Attention Span: Intact Laboratory Results Laboratory Tests Test 07/20/18 12:00 07/20/18 17:16 07/20/18 20:09 07/21/18 07:05 Bedside Glucose 169 mg/dL 191 mg/dL 163 mg/dL Prothrombin Time 21.4 Sec Prothrombin Time Ratio 1.7 INR International 1.85 Normalized Ratio Test 07/21/18 07:59 07/21/18 11:44 07/21/18 17:23 07/21/18 20:29 Bedside Glucose 223 mg/dL 116 mg/dL 126 mg/dL 151 mg/dL Test 07/22/18 06:47 07/22/18 08:02 Prothrombin Time 21.2 Sec Prothrombin Time Ratio 1.7 INR International 1.82 Normalized Ratio Bedside Glucose 171 mg/dL Assessment and Plan Assessment/Diagnosis Diagnosis Major depressive disorder severe recurrent without psychosis Recommendation/Plan Medication Management Citalopram 40 mg daily Multiple antipsychotics: No Psychotherapy Provide supportive therapy Discharge Disposition: Other Legal Status: Voluntary (Does not meet criteria for 5150 hold) LY JOHNSON NP July 22, 2018 08:55
[2018-07-22] MEDS: AMLODIPINE 5 MG TAB PO SCH (08:58)
--- NOTE | 2018-07-22 09:21 | CONS ---
Assessment/Plan Assessment/Plan Problems: (1) Diabetes mellitus type 2 in nonobese Status: Chronic Comment: FBG continues to be elevated daily. O/w getting good control. Pt. refuses tradjenta and refuses to increase metformin to bid. Will add NPH 8 units at hs and expect this will help lower FBG. Consultation Date/Type/Reason Admit Date/Time Jul 06, 2018 at 19:47 Initial Consult Date 07/12/18 Type of Consult Endocrinology Reason for Consultation T2DM management Requesting Provider: NAYELI CHAUDHARI DO Date/Time of Note DATE: 07/22/18 TIME: 09:19 24 HR Interval Summary Constitutional: no complaints, improved Detailed Summary Respiratory: no complaints Cardiovascular: no complaints Gastrointestinal: no complaints Genitourinary: no complaints Musculoskeletal: no complaints Neurologic: no complaints Exam/Review of Systems Exam Vitals VS - Last 72 Hours, by Label Date Temp Pulse Resp B/P (MAP) Pulse Ox O2 O2 Flow FiO2 Time Delivery Rate 07/22/18 98.2 70 18 151/67 93 Room Air 02:38 (95) 07/21/18 98.7 55 18 119/68 93 Room Air 19:51 (85) 07/21/18 98.3 70 18 104/54 98 Room Air 14:00 (71) 07/21/18 97.8 73 18 143/65 97 Room Air 07:30 (91) 07/20/18 97.9 71 18 133/58 98 Room Air 20:00 (83) 07/20/18 98.1 67 18 139/63 97 Room Air 14:30 (88) 07/20/18 98.1 70 20 140/64 95 Room Air 07:30 (89) 07/20/18 97.9 63 18 111/57 97 Room Air 02:00 (75) 07/19/18 98.1 60 18 105/55 97 Room Air 20:00 (72) 07/19/18 97.7 71 18 135/65 96 Room Air 14:00 (88) Vital Signs Date Temp Pulse Resp B/P (MAP) Pulse Ox O2 O2 Flow FiO2 Time Delivery Rate 07/22/18 98.2 70 18 151/67 93 Room Air 02:38 (95) Intake and Output 07/21/18 07/21/18 07/22/18 1515:00 23:00 07:00 IntakeIntake Total 860 ml OutputOutput Total 2 ml BalanceBalance -2 ml 860 ml Constitutional: alert, oriented, obese Psych: no complaints, nl mood/affect Respiratory: clear to auscultation, normal air movement Cardiovascular: regular rate and rhythm, nl pulses; No edema, No murmurs/extra sounds, No rub Gastrointestinal: soft, nl liver, spleen, non-tender, bowel sounds; No mass, No rebound or guarding Musculoskeletal: nl extremities to inspection Extremities: normal pulses; No cyanosis, No clubbing, No edema Neurological: AIRDOX FITTER II-XII intact, nl mental status, nl speech, nl strength Additional Comments Bedside Glucose - 72 Hours Test 07/19/18 12:10 07/19/18 17:29 07/19/18 21:27 07/20/18 07:39 Bedside 123 146 174 227 Glucose mg/dL (70-220) mg/dL (70-220) mg/dL (70-220) mg/dL (70-220) H Test 07/20/18 12:00 07/20/18 17:16 07/20/18 20:09 07/21/18 07:59 Bedside 169 191 163 223 Glucose mg/dL (70-220) mg/dL (70-220) mg/dL (70-220) mg/dL (70-220) H Test 07/21/18 11:44 07/21/18 17:23 07/21/18 20:29 07/22/18 08:02 Bedside 116 126 151 171 Glucose mg/dL (70-220) mg/dL (70-220) mg/dL (70-220) mg/dL (70-220) Results Result Diagram: 07/18/18 0551 Results 24hrs Laboratory Tests Test 07/21/18 11:44 07/21/18 17:23 07/21/18 20:29 07/22/18 06:47 Bedside Glucose 116 126 151 Prothrombin Time 21.2 H Prothrombin Time Ratio 1.7 INR International 1.82 Normalized Ratio Test 07/22/18 08:02 Bedside Glucose 171 Medications Medication Current Medications Acetaminophen (Tylenol Tab) 650 mg Q4H PRN PO MILD PAIN(1-3)OR ELEVATED TEMP Last administered on 07/20/18at 11:18; Admin Dose 650 MG; Start 07/07/18 at 00:00 Bisacodyl (Dulcolax Supp) 10 mg DAILY PRN [place] CONSTIPATION Last administered on 07/13/18 17:32; Admin Dose 10 MG; Start 07/07/18 at 00:00 Calcium Carbonate (Tums) 1,000 mg Q4H PRN PO Indigestion; Start 07/07/18 at 00:00 Citalopram Hydrobromide (Celexa) 40 mg HS PO Last administered on 07/21/18 20:32; Admin Dose 40 MG; Start 07/07/18 at 21:00 Fenofibrate (Tricor) 145 mg DAILY PO Last administered on 07/22/18 08:44; Admin Dose 145 MG; Start 07/07/18 at 09:00 Folic Acid (Folic Acid) 1 mg DAILY PO Last administered on 07/22/18 08:44; Admin Dose 1 MG; Start 07/07/18 at 09:00 Acetaminophen/ Hydrocodone Bitart ([place] (5/325)) 1 tab Q4H PRN PO Pain Last administered on 07/21/18 17:25; Admin Dose 1 TAB; Start 07/07/18 at 00:00 Lacosamide (Vimpat Liq) 150 mg BID PO Last administered on 07/22/18 08:42; Admin Dose 150 MG; Start 07/07/18 at 09:00 Lamotrigine (Lamictal) 25 mg HS PO Last administered on 07/21/18 20:32; Admin Dose 25 MG; Start 07/07/18 at 21:00 Levetiracetam (Keppra) 1,000 mg DAILY PO Last administered on 07/22/18 08:44; Admin Dose 1,000 MG; Start 07/07/18 at 09:00 Levetiracetam (Keppra) 1,500 mg HS PO Last administered on 07/21/18 20:31; Admin Dose 1,500 MG; Start 07/07/18 at 21:00 Lidocaine (Lidoderm) 1 patch DAILY TD Last administered on 07/22/18 08:45; Admin Dose 1 PATCH; Start 07/07/18 at 09:00 Metoprolol Succinate (Toprol Xl) 100 mg DAILY PO Last administered on 07/22/18 08:48; Admin Dose 100 MG; Start 07/07/18 at 09:00 Ondansetron HCl (Zofran Tab) 4 mg Q6H PRN PO NAUSEA AND/OR VOMITING; Start 07/07/18 at 00:00 Pantoprazole (Protonix Tab) 40 mg DAILY@06 PO Last administered on 07/22/18 06:47; Admin Dose 40 MG; Start 07/07/18 at 06:00 Insulin Aspart (Novolog Insulin Pen) NOVOLOG *MODERATE* ALGORITHM WITH MEALS BEDTIME SC Last administered on 07/22/18 08:38; Admin Dose 2 UNIT; Start 07/07/18 at 07:35 Miscellaneous Information 1 ea NOTE XX ; Start 07/07/18 at 01:00 Glucose (Glutose) 15 gm Q15M PRN PO DECREASED GLUCOSE; Start 07/07/18 at 01:00 Glucose (Glutose) 22.5 gm Q15M PRN PO DECREASED GLUCOSE; Start 07/07/18 at 01:00 Dextrose (D50w Syringe) 25 ml Q15M PRN IV DECREASED GLUCOSE; Start 07/07/18 at 01:00 Dextrose (D50w Syringe) 50 ml Q15M PRN IV DECREASED GLUCOSE; Start 07/07/18 at 01:00 Glucagon (Glucagen) 1 mg Q15M PRN IM DECREASED GLUCOSE; Start 07/07/18 at 01:00 Glucose (Glutose) 15 gm Q15M PRN BUCCAL DECREASED GLUCOSE; Start 07/07/18 at 01:00 Rosuvastatin Calcium (Crestor) 20 mg HS PO Last administered on 07/21/18at 20:30; Admin Dose 20 MG; Start 07/07/18 at 21:00 Senna (Senokot) 1 tab HS PRN PO CONSTIPATION; Start 07/07/18 at 21:00 Magnesium Hydroxide (Milk Of Mag) 30 ml BID PRN PO CONSTIPATION; Start 07/07/18 at 03:30 Lactulose (Enulose) 20 gm DAILY PRN PO CONSTIPATION; Start 07/07/18 at 03:30 Simethicone (Mylicon) 160 mg Q6H PRN PO DISTENSION/GAS/BLOATING Last administered on 07/11/18 14:54; Admin Dose 160 MG; Start 07/07/18 at 19:30 Miscellaneous Information (* Miscellaneous Pharmacy Order) The patient is on Trulic... ONCE XX ; Start 07/13/18 at 17:30 Non-Formulary Medication 1 ea Fr@1000 SC Last administered on 07/21/18 10:17; Admin Dose 1 EA; Start 07/14/18 at 10:00 Amlodipine Besylate (Norvasc) 5 mg DAILY PO Last administered on 07/18/18 08:29; Admin Dose 5 MG; Start 07/14/18 at 09:00 Benazepril HCl (Lotensin) 40 mg HS PO Last administered on 07/20/18 20:16; Admin Dose 40 MG; Start 07/14/18 at 21:00 Docusate Sodium (Colace) 100 mg QHS PO Last administered on 07/21/18 20:30; Admin Dose 100 MG; Start 07/15/18 at 21:00 Metformin HCl (Glucophage) 500 mg AC BREAKFAST PO Last administered on 07/22/18 08:36; Admin Dose 500 MG; Start 07/16/18 at 07:05 Magnesium Oxide (Mag-Ox 400) 400 mg DAILY PO Last administered on 07/22/18 08:44; Admin Dose 400 MG; Start 07/17/18 at 09:00 Diphenhydramine HCl (Benadryl) 25 mg BID PRN PO ITCHING Last administered on 07/21/18 20:35; Admin Dose 25 MG; Start 07/17/18 at 13:30 Melatonin (Melatonin) 10 mg HS PRN PO insomnia Last administered on 07/21/18 20:35; Admin Dose 10 MG; Start 07/17/18 at 19:00 Warfarin Sodium (Coumadin) 3 mg DAILY@1700 PO Last administered on 07/21/18 17:26; Admin Dose 3 MG; Start 07/20/18 at 17:00 Insulin Aspart (Novolog Insulin Pen) 15 unit WITH MEALS SC Last administered on 07/22/18 08:39; Admin Dose 15 UNIT; Start 07/21/18 at 17:35 Insulin Glargine (Lantus) 28 units DAILY@2000 SC Last administered on 07/21/18 20:00; Admin Dose 28 UNITS; Start 07/21/18 at 20:00 PAULETTE BECKETT MD July 22, 2018 09:21
--- NOTE | 2018-07-22 11:36 | PN ---
Date/Time of Note Date/Time of Note DATE: 07/22/18 TIME: 11:36 Subjective Feeling better Objective Vital Signs Date Temp Pulse Resp B/P (MAP) Pulse Ox O2 O2 Flow FiO2 Time Delivery Rate 07/22/18 98.2 70 18 151/67 93 Room Air 02:38 (95) Intake and Output 07/21/18 07/21/18 07/22/18 1515:00 23:00 07:00 IntakeIntake Total 860 ml OutputOutput Total 2 ml BalanceBalance -2 ml 860 ml Exam pulm-cta min assist ambulation Results/Medications Result Diagram: 07/18/18 0551 Results 24 hrs Laboratory Tests Test 07/21/18 11:44 07/21/18 17:23 07/21/18 20:29 07/22/18 06:47 Bedside Glucose 116 126 151 Prothrombin Time 21.2 H Prothrombin Time Ratio 1.7 INR International 1.82 Normalized Ratio Test 07/22/18 08:02 Bedside Glucose 171 Medications Current Medications Acetaminophen (Tylenol Tab) 650 mg Q4H PRN PO MILD PAIN(1-3)OR ELEVATED TEMP Last administered on 07/20/18 11:18; Admin Dose 650 MG; Start 07/07/18 at 00:00 Bisacodyl (Dulcolax Supp) 10 mg DAILY PRN [place] CONSTIPATION Last administered on 07/13/18 17:32; Admin Dose 10 MG; Start 07/07/18 at 00:00 Calcium Carbonate (Tums) 1,000 mg Q4H PRN PO Indigestion; Start 07/07/18 at 00:00 Citalopram Hydrobromide (Celexa) 40 mg HS PO Last administered on 07/21/18 20:32; Admin Dose 40 MG; Start 07/07/18 at 21:00 Fenofibrate (Tricor) 145 mg DAILY PO Last administered on 07/22/18 08:44; Admin Dose 145 MG; Start 07/07/18 at 09:00 Folic Acid (Folic Acid) 1 mg DAILY PO Last administered on 07/22/18 08:44; Admin Dose 1 MG; Start 07/07/18 at 09:00 Acetaminophen/ Hydrocodone Bitart ([place] (5/325)) 1 tab Q4H PRN PO Pain Last administered on 07/21/18 17:25; Admin Dose 1 TAB; Start 07/07/18 at 00:00 Lacosamide (Vimpat Liq) 150 mg BID PO Last administered on 07/22/18 08:42; Admin Dose 150 MG; Start 07/07/18 at 09:00 Lamotrigine (Lamictal) 25 mg HS PO Last administered on 07/21/18 20:32; Admin Dose 25 MG; Start 07/07/18 at 21:00 Levetiracetam (Keppra) 1,000 mg DAILY PO Last administered on 07/22/18 08:44; Admin Dose 1,000 MG; Start 07/07/18 at 09:00 Levetiracetam (Keppra) 1,500 mg HS PO Last administered on 07/21/18 20:31; A dmin Dose 1,500 MG; Start 07/07/18 at 21:00 Lidocaine (Lidoderm) 1 patch DAILY TD Last administered on 07/22/18 08:45; Admin Dose 1 PATCH; Start 07/07/18 at 09:00 Metoprolol Succinate (Toprol Xl) 100 mg DAILY PO Last administered on 07/22/18 08:48; Admin Dose 100 MG; Start 07/07/18 at 09:00 Ondansetron HCl (Zofran Tab) 4 mg Q6H PRN PO NAUSEA AND/OR VOMITING; Start 07/07/18 at 00:00 Pantoprazole (Protonix Tab) 40 mg DAILY@06 PO Last administered on 07/22/18 06:47; Admin Dose 40 MG; Start 07/07/18 at 06:00 Insulin Aspart (Novolog Insulin Pen) NOVOLOG *MODERATE* ALGORITHM WITH MEALS BEDTIME SC Last administered on 07/22/18 08:38; Admin Dose 2 UNIT; Start 07/07/18 at 07:35 Miscellaneous Information 1 ea NOTE XX ; Start 07/07/18 at 01:00 Glucose (Glutose) 15 gm Q15M PRN PO DECREASED GLUCOSE; Start 07/07/18 at 01:00 Glucose (Glutose) 22.5 gm Q15M PRN PO DECREASED GLUCOSE; Start 07/07/18 at 01:00 Dextrose (D50w Syringe) 25 ml Q15M PRN IV DECREASED GLUCOSE; Start 07/07/18 at 01:00 Dextrose (D50w Syringe) 50 ml Q15M PRN IV DECREASED GLUCOSE; Start 07/07/18 at 01:00 Glucagon (Glucagen) 1 mg Q15M PRN IM DECREASED GLUCOSE; Start 07/07/18 at 01:00 Glucose (Glutose) 15 gm Q15M PRN BUCCAL DECREASED GLUCOSE; Start 07/07/18 at 01:00 Rosuvastatin Calcium (Crestor) 20 mg HS PO Last administered on 07/21/18 20:30; Admin Dose 20 MG; Start 07/07/18 at 21:00 Senna (Senokot) 1 tab HS PRN PO CONSTIPATION; Start 07/07/18 at 21:00 Magnesium Hydroxide (Milk Of Mag) 30 ml BID PRN PO CONSTIPATION; Start 07/07/18 at 03:30 Lactulose (Enulose) 20 gm DAILY PRN PO CONSTIPATION; Start 07/07/18 at 03:30 Simethicone (Mylicon) 160 mg Q6H PRN PO DISTENSION/GAS/BLOATING Last administered on 07/11/18 14:54; Admin Dose 160 MG; Start 07/07/18 at 19:30 Miscellaneous Information (* Miscellaneous Pharmacy Order) The patient is on Trulic... ONCE XX ; Start 07/13/18 at 17:30 Non-Formulary Medication 1 ea Fr@1000 SC Last administered on 07/21/18 10:17; Admin Dose 1 EA; Start 07/14/18 at 10:00 Amlodipine Besylate (Norvasc) 5 mg DAILY PO Last administered on 07/18/18 08:29; Admin Dose 5 MG; Start 07/14/18 at 09:00 Benazepril HCl (Lotensin) 40 mg HS PO Last administered on 07/20/18 20:16; Adm in Dose 40 MG; Start 07/14/18 at 21:00 Docusate Sodium (Colace) 100 mg QHS PO Last administered on 07/21/18 20:30; Admin Dose 100 MG; Start 07/15/18 at 21:00 Metformin HCl (Glucophage) 500 mg AC BREAKFAST PO Last administered on 07/22/18 08:36; Admin Dose 500 MG; Start 07/16/18 at 07:05 Magnesium Oxide (Mag-Ox 400) 400 mg DAILY PO Last administered on 07/22/18 08:44; Admin Dose 400 MG; Start 07/17/18 at 09:00 Diphenhydramine HCl (Benadryl) 25 mg BID PRN PO ITCHING Last administered on 07/21/18 20:35; Admin Dose 25 MG; Start 07/17/18 at 13:30 Melatonin (Melatonin) 10 mg HS PRN PO insomnia Last administered on 07/21/18 20:35; Admin Dose 10 MG; Start 07/17/18 at 19:00 Warfarin Sodium (Coumadin) 3 mg DAILY@1700 PO Last administered on 07/21/18 17:26; Admin Dose 3 MG; Start 07/20/18 at 17:00 Insulin Aspart (Novolog Insulin Pen) 15 unit WITH MEALS SC Last administered on 07/22/18 08:39; Admin Dose 15 UNIT; Start 07/21/18 at 17:35 Insulin Glargine (Lantus) 28 units DAILY@2000 SC Last administered on 07/21/18 20:00; Admin Dose 28 UNITS; Start 07/21/18 at 20:00 Insulin Human NPH (Humulin N) 8 unit DAILY@2200 SC ; Start 07/22/18 at 22:00 Assessment/Plan Additional Assessment/Plan Rehab- Toxic metabolic encephalopathy superimposed on history of CVA with residual right upper extremity weakness. Overall patient continues to improve. Caregiver training this week Status post fall with right upper extremity fracture, being managed conservatively. Seizure disorder. Diabetes mellitus type 2 with labile blood sugars. Hypertension. Hyperlipidemia. History of hypercoagulable state. History of arrhythmia, sick sinus syndrome and pacemaker placement. Status post sepsis and urinary tract infection. Acute on chronic kidney injury. TERESA PELLETIER MD July 22, 2018 11:36
--- NOTE | 2018-07-22 12:31 | CONS ---
Assessment/Plan Assessment/Plan Hospital Course (Demo Recall) 1. Acute encephalopathy, etiology is toxic metabolic. The patient's mental status is improved. Continue to monitor. 2. Right humeral fracture. The patient's repeat x-ray shows mild displacement. The results were faxed to outpatient orthopedist. Continue pain control. Continue to non-weightbearing status. 3. Sepsis secondary to urinary tract infection. The patient is completing anti biotic course. 4. Acute kidney injury on top of chronic kidney disease. Etiology is secondary to hemodynamics. Renal function is improved. Continue to monitor. 5. Anemia. Monitor hemoglobin and hematocrit levels. 6. Mineral bone disorder. Monitor calcium and phosphorus levels. 7. Hypercoagulable state. The patient's INR is at goal. Coumadin was adjusted. We will repeat INR in a.m. and adjust Coumadin as needed. 8. Sick sinus syndrome, status post pacemaker. 9. Diabetes. Continue current insulin regimen. Appreciate endocrinology's help with management. 10. Hypertension. Continue current blood pressure regimen. 11. Seizure disorder. Continue Keppra. 12. Dyslipidemia. Continue statin therapy. 13. Insomnia. Continue melatonin. 14. Pruritus, improving. Continue Benadryl. 15. Constipation. Continue current bowel regimen. 16. Gastrointestinal and deep vein thrombosis prophylaxis. Consultation Date/Type/Reason Admit Date/Time Jul 06, 2018 at 19:47 Initial Consult Date Requesting Provider: NAYELI CHAUDHARI DO Date/Time of Note DATE: 07/22/18 TIME: 12:31 24 HR Interval Summary Free Text/Dictation eating lunch no complaints d.w rn gen nad cv rrr pulm ctab abd soft, nd, nt +bs ext: no edema Exam/Review of Systems Exam Vitals Vital Signs Date Temp Pulse Resp B/P (MAP) Pulse Ox O2 O2 Flow FiO2 Time Delivery Rate 07/22/18 98.2 70 18 151/67 93 Room Air 02:38 (95) Intake and Output 07/21/18 07/21/18 07/22/18 1515:00 23:00 07:00 IntakeIntake Total 860 ml OutputOutput Total 2 ml BalanceBalance -2 ml 860 ml Results Result Diagram: 07/18/18 0551 Results 24hrs Laboratory Tests Test 07/21/18 17:23 07/21/18 20:29 07/22/18 06:47 07/22/18 08:02 Bedside Glucose 126 151 171 Prothrombin Time 21.2 H Prothrombin Time Ratio 1.7 INR International 1.82 Normalized Ratio Test 07/22/18 11:48 Bedside Glucose 200 Medications Medication Current Medications Acetaminophen (Tylenol Tab) 650 mg Q4H PRN PO MILD PAIN(1-3)OR ELEVATED TEMP Last administered on 07/20/18 11:18; Admin Dose 650 MG; Start 07/07/18 at 00:00 Bisacodyl (Dulcolax Supp) 10 mg DAILY PRN [place] CONSTIPATION Last administered on 07/13/18 17:32; Admin Dose 10 MG; Start 07/07/18 at 00:00 Calcium Carbonate (Tums) 1,000 mg Q4H PRN PO Indigestion; Start 07/07/18 at 00:00 Citalopram Hydrobromide (Celexa) 40 mg HS PO Last administered on 07/21/18 20:32; Admin Dose 40 MG; Start 07/07/18 at 21:00 Fenofibrate (Tricor) 145 mg DAILY PO Last administered on 07/22/18 08:44; Admin Dose 145 MG; Start 07/07/18 at 09:00 Folic Acid (Folic Acid) 1 mg DAILY PO Last administered on 07/22/18 08:44; Admin Dose 1 MG; Start 07/07/18 at 09:00 Acetaminophen/ Hydrocodone Bitart ([place] (5/325)) 1 tab Q4H PRN PO Pain Last administered on 07/21/18 17:25; Admin Dose 1 TAB; Start 07/07/18 at 00:00 Lacosamide (Vimpat Liq) 150 mg BID PO Last administered on 07/22/18 08:42; Admin Dose 150 MG; Start 07/07/18 at 09:00 Lamotrigine (Lamictal) 25 mg HS PO Last administered on 07/21/18 20:32; Admin Dose 25 MG; Start 07/07/18 at 21:00 Levetiracetam (Keppra) 1,000 mg DAILY PO Last administered on 07/22/18 08:44; Admin Dose 1,000 MG; Start 07/07/18 at 09:00 Levetiracetam (Keppra) 1,500 mg HS PO Last administered on 07/21/18 20:31; Admin Dose 1,500 MG; Start 07/07/18 at 21:00 Lidocaine (Lidoderm) 1 patch DAILY TD Last administered on 07/22/18 08:45; Admin Dose 1 PATCH; Start 07/07/18 at 09:00 Metoprolol Succinate (Toprol Xl) 100 mg DAILY PO Last administered on 07/22/18 08:48; Admin Dose 100 MG; Start 07/07/18 at 09:00 Ondansetron HCl (Zofran Tab) 4 mg Q6H PRN PO NAUSEA AND/OR VOMITING; Start 07/07/18 at 00:00 Pantoprazole (Protonix Tab) 40 mg DAILY@06 PO Last administered on 07/22/18 06:47; Admin Dose 40 MG; Start 07/07/18 at 06:00 Insulin Aspart (Novolog Insulin Pen) NOVOLOG *MODERATE* ALGORITHM WITH MEALS BEDTIME SC Last administered on 07/22/18 12:13; Admin Dose 4 UNIT; Start 07/07/18 at 07:35 Miscellaneous Information 1 ea NOTE XX ; Start 07/07/18 at 01:00 Glucose (Glutose) 15 gm Q15M PRN PO DECREASED GLUCOSE; Start 07/07/18 at 01:00 Glucose (Glutose) 22.5 gm Q15M PRN PO DECREASED GLUCOSE; Start 07/07/18 at 01:00 Dextrose (D50w Syringe) 25 ml Q15M PRN IV DECREASED GLUCOSE; Start 07/07/18 at 01:00 Dextrose (D50w Syringe) 50 ml Q15M PRN IV DECREASED GLUCOSE; Start 07/07/18 at 01:00 Glucagon (Glucagen) 1 mg Q15M PRN IM DECREASED GLUCOSE; Start 07/07/18 at 01:00 Glucose (Glutose) 15 gm Q15M PRN BUCCAL DECREASED GLUCOSE; Start 07/07/18 at 01:00 Rosuvastatin Calcium (Crestor) 20 mg HS PO Last administered on 07/21/18 20:30; Admin Dose 20 MG; Start 07/07/18 at 21:00 Senna (Senokot) 1 tab HS PRN PO CONSTIPATION; Start 07/07/18 at 21:00 Magnesium Hydroxide (Milk Of Mag) 30 ml BID PRN PO CONSTIPATION; Start 07/07/18 at 03:30 Lactulose (Enulose) 20 gm DAILY PRN PO CONSTIPATION; Start 07/07/18 at 03:30 Simethicone (Mylicon) 160 mg Q6H PRN PO DISTENSION/GAS/BLOATING Last admini stered on 07/11/18 14:54; Admin Dose 160 MG; Start 07/07/18 at 19:30 Miscellaneous Information (* Miscellaneous Pharmacy Order) The patient is on Trulic... ONCE XX ; Start 07/13/18 at 17:30 Non-Formulary Medication 1 ea Fr@1000 SC Last administered on 07/21/18 10:17; Admin Dose 1 EA; Start 07/14/18 at 10:00 Amlodipine Besylate (Norvasc) 5 mg DAILY PO Last administered on 07/18/18 08:29; Admin Dose 5 MG; Start 07/14/18 at 09:00 Benazepril HCl (Lotensin) 40 mg HS PO Last administered on 07/20/18 20:16; Admin Dose 40 MG; Start 07/14/18 at 21:00 Docusate Sodium (Colace) 100 mg QHS PO Last administered on 07/21/18 20:30; Admin Dose 100 MG; Start 07/15/18 at 21:00 Metformin HCl (Glucophage) 500 mg AC BREAKFAST PO Last administered on 07/22/18 08:36; Admin Dose 500 MG; Start 07/16/18 at 07:05 Magnesium Oxide (Mag-Ox 400) 400 mg DAILY PO Last administered on 07/22/18 08:44; Admin Dose 400 MG; Start 07/17/18 at 09:00 Diphenhydramine HCl (Benadryl) 25 mg BID PRN PO ITCHING Last administered on 07/21/18 20:35; Admin Dose 25 MG; Start 07/17/18 at 13:30 Melatonin (Melatonin) 10 mg HS PRN PO insomnia Last administered on 07/21/18 20:35; Admin Dose 10 MG; Start 07/17/18 at 19:00 Warfarin Sodium (Coumadin) 3 mg DAILY@1700 PO Last administered on 07/21/18 17:26; Admin Dose 3 MG; Start 07/20/18 at 17:00 Insulin Aspart (Novolog Insulin Pen) 15 unit WITH MEALS SC Last administered on 5/4/19at 12:12; Admin Dose 15 UNIT; Start 07/21/18 at 17:35 Insulin Glargine (Lantus) 28 units DAILY@2000 SC Last administered on 07/21/18at 20:00; Admin Dose 28 UNITS; Start 07/21/18 at 20:00 Insulin Human NPH (Humulin N) 8 unit DAILY@2200 SC ; Start 07/22/18 at 22:00 TYESHA WRAY MD July 22, 2018 12:31
[2018-07-22] MEDS: DIPHENHYDRAMINE 25 MG CAP PO PRN ×2 (12:36→20:29)
[2018-07-22 15:05] VITALS: BP 113/53; PULSE 62; RESP 16
[2018-07-22] MEDS: WARFARIN 3 MG TAB PO SCH (17:30)
[2018-07-22 20:05] VITALS: BP 121/58; PULSE 70; RESP 17
[2018-07-22] MEDS: ROSUVASTATIN CALCIUM 40 MG TABLET PO SCH (20:23)
[2018-07-22] MEDS: CITALOPRAM 20 MG TAB PO SCH (20:23)
[2018-07-22] MEDS: LAMOTRIGINE 25 MG TAB PO SCH (20:23)
[2018-07-22] MEDS: LEVETIRACETAM 750 MG TAB PO SCH (20:24)
[2018-07-22] MEDS: DOCUSATE SODIUM 100 MG CAP PO SCH (20:24)
[2018-07-22] MEDS: BENAZEPRIL 40 MG TAB PO SCH (20:25)
[2018-07-22] MEDS: MELATONIN 5 MG TABLET PO PRN (20:25)
[2018-07-22] MEDS: INSULIN GLARGINE [LANTus] (100 UNITS/ML) SYG SC SCH (20:27)
[2018-07-22] MEDS ORDERED: NPH, HUMAN INSULIN ISOPHANE 3ML VIAL SC SCH (22:00)
--- NOTE | 2018-07-22 22:12 | EN ---
Date/Time of Note Date/Time of Note DATE: 07/22/18 TIME: 22:09 Event Note Endocrinology Endocrinology Event Note This am d/w pt. re: elevated FBG's. Pt. denied hs snacking. Offered to in crease metformin to bid. Pt. refused. Offered to add low-dose NPH at hs to lower FBG. Pt. agreed to this intervention. Now tonight pt. refusing. Pt. requested calling her son. Called son who also refused. Did not want her to get "any new medication." Despite multiple efforts to convince him that an adjustment was necessary, he continued to refuse. I stated that there did not seem to be any point to my ongoing efforts to consult on the patient if I could not manage her blood glucose levels. He agreed. I will sign off her case. PAULETTE BECKETT MD July 22, 2018 22:12
[2018-07-23] MEDS: PANTOPRAZOLE (EC) 40 MG TAB PO SCH (06:39)
[2018-07-23 07:00] VITALS: BP 145/66; PULSE 71; RESP 18
[2018-07-23] MEDS: LIDOCAINE 5% PATCH TD SCH (08:48)
[2018-07-23] MEDS: LEVETIRACETAM 500 MG TAB PO SCH (08:49)
[2018-07-23] MEDS: LACOSAMIDE (100 MG/10 ML PO SYR) PO SCH ×2 (08:49→20:29)
[2018-07-23] MEDS: MAGNESIUM OXIDE 400 MG TAB PO SCH (08:49)
[2018-07-23] MEDS: metFORMIN 500 MG TAB PO SCH (08:49)
[2018-07-23] MEDS: FOLIC ACID 1 MG TAB PO SCH (08:50)
[2018-07-23] MEDS: FENOFIBRATE 145 MG TAB PO SCH (08:50)
[2018-07-23] MEDS: AMLODIPINE 5 MG TAB PO SCH (08:54)
[2018-07-23] MEDS: METOPROLOL (XL) 100 MG TAB PO SCH (08:54)
[2018-07-23] MEDS: INSULIN ASPART [NOVOLOG] 3 ML PEN SC SCH ×7 (09:07→20:40)
--- NOTE | 2018-07-23 12:35 | CONS ---
Assessment/Plan Assessment/Plan Hospital Course (Demo Recall) 1. Acute encephalopathy, etiology is toxic metabolic. The patient's mental status is improved. Continue to monitor. 2. Right humeral fracture. The patient's repeat x-ray shows mild displacement. The results were faxed to outpatient orthopedist. Continue pain control. Co ntinue to non-weightbearing status. 3. Sepsis secondary to urinary tract infection. The patient is completing antibiotic course. 4. Acute kidney injury on top of chronic kidney disease. Etiology is secondary to hemodynamics. Renal function is improved. Continue to monitor. 5. Anemia. Monitor hemoglobin and hematocrit levels. 6. Mineral bone disorder. Monitor calcium and phosphorus levels. 7. Hypercoagulable state. The patient's INR is at goal. Coumadin was adjusted. We will repeat INR in a.m. and adjust Coumadin as needed. 8. Sick sinus syndrome, status post pacemaker. 9. Diabetes. Continue current insulin regimen. Appreciate endocrinology's help with management. 10. Hypertension. Continue current blood pressure regimen. 11. Seizure disorder. Continue Keppra. 12. Dyslipidemia. Continue statin therapy. 13. Insomnia. Continue melatonin. 14. Pruritus, improving. Continue Benadryl. 15. Constipation. Continue current bowel regimen. 16. Gastrointestinal and deep vein thrombosis prophylaxis. Consultation Date/Type/Reason Admit Date/Time Jul 06, 2018 at 19:47 Initial Consult Date Requesting Provider: NAYELI CHAUDHARI DO Date/Time of Note DATE: 07/23/18 TIME: 12:34 24 HR Interval Summary Free Text/Dictation denies f/c, n/v or shortness of breath d/w rn gen nad cv rrr pulm ctab abd soft, nd, nt +bs ext: no edema Exam/Review of Systems Exam Vitals Vital Signs Date Temp Pulse Resp B/P (MAP) Pulse Ox O2 O2 Flow FiO2 Time Delivery Rate 07/23/18 97.4 71 18 145/66 96 Room Air 07:00 (92) Intake and Output 07/22/18 07/22/18 07/23/18 1515:00 23:00 07:00 OutputOutput Total 200 ml BalanceBalance -200 ml Results Results 24hrs Laboratory Tests Test 07/22/18 17:29 07/22/18 20:11 07/23/18 08:42 07/23/18 12:17 Bedside Glucose 189 124 184 158 Medications Medication Current Medications Acetaminophen (Tylenol Tab) 650 mg Q4H PRN PO MILD PAIN(1-3)OR ELEVATED TEMP Last administered on 07/20/18 11:18; Admin Dose 650 MG; Start 07/07/18 at 00:00 Bisacodyl (Dulcolax Supp) 10 mg DAILY PRN [place] CONSTIPATION Last administered on 07/13/18 17:32; Admin Dose 10 MG; Start 07/07/18 at 00:00 Calcium Carbonate (Tums) 1,000 mg Q4H PRN PO Indigestion; Start 07/07/18 at 00:00 Citalopram Hydrobromide (Celexa) 40 mg HS PO Last administered on 07/22/18 20:23; Admin Dose 40 MG; Start 07/07/18 at 21:00 Fenofibrate (Tricor) 145 mg DAILY PO Last administered on 07/23/18 08:50; Admin Dose 145 MG; Start 07/07/18 at 09:00 Folic Acid (Folic Acid) 1 mg DAILY PO Last administered on 07/23/18 08:50; Admin Dose 1 MG; Start 07/07/18 at 09:00 Acetaminophen/ Hydrocodone Bitart ([place] (5/325)) 1 tab Q4H PRN PO Pain Last administered on 07/21/18 17:25; Admin Dose 1 TAB; Start 07/07/18 at 00:00 Lacosamide (Vimpat Liq) 150 mg BID PO Last administered on 07/23/18 08:49; Admin Dose 150 MG; Start 07/07/18 at 09:00 Lamotrigine (Lamictal) 25 mg HS PO Last administered on 07/22/18 20:23; Admin Dose 25 MG; Start 07/07/18 at 21:00 Levetiracetam (Keppra) 1,000 mg DAILY PO Last administered on 07/23/18 08:49; Admin Dose 1,000 MG; Start 07/07/18 at 09:00 Levetiracetam (Keppra) 1,500 mg HS PO Last administered on 07/22/18 20:24; Admin Dose 1,500 MG; Start 07/07/18 at 21:00 Lidocaine (Lidoderm) 1 patch DAILY TD Last administered on 07/23/18 08:48; Admin Dose 1 PATCH; Start 07/07/18 at 09:00 Metoprolol Succinate (Toprol Xl) 100 mg DAILY PO Last administered on 07/23/18 08:54; Admin Dose 100 MG; Start 07/07/18 at 09:00 Ondansetron HCl (Zofran Tab) 4 mg Q6H PRN PO NAUSEA AND/OR VOMITING; Start 07/07/18 at 00:00 Pantoprazole (Protonix Tab) 40 mg DAILY@06 PO Last administered on 07/23/18 06: 39; Admin Dose 40 MG; Start 07/07/18 at 06:00 Insulin Aspart (Novolog Insulin Pen) NOVOLOG *MODERATE* ALGORITHM WITH MEALS BEDTIME SC Last administered on 07/23/18 12:32; Admin Dose 2 UNIT; Start 07/07/18 at 07:35 Miscellaneous Information 1 ea NOTE XX ; Start 07/07/18 at 01:00 Glucose (Glutose) 15 gm Q15M PRN PO DECREASED GLUCOSE; Start 07/07/18 at 01:00 Glucose (Glutose) 22.5 gm Q15M PRN PO DECREASED GLUCOSE; Start 07/07/18 at 01:00 Dextrose (D50w Syringe) 25 ml Q15M PRN IV DECREASED GLUCOSE; Start 07/07/18 at 01:00 Dextrose (D50w Syringe) 50 ml Q15M PRN IV DECREASED GLUCOSE; Start 07/07/18 at 01:00 Glucagon (Glucagen) 1 mg Q15M PRN IM DECREASED GLUCOSE; Start 07/07/18 at 01:00 Glucose (Glutose) 15 gm Q15M PRN BUCCAL DECREASED GLUCOSE; Start 07/07/18 at 01:00 Rosuvastatin Calcium (Crestor) 20 mg HS PO Last administered on 07/22/18 20:23; Admin Dose 20 MG; Start 07/07/18 at 21:00 Senna (Senokot) 1 tab HS PRN PO CONSTIPATION; Start 07/07/18 at 21:00 Magnesium Hydroxide (Milk Of Mag) 30 ml BID PRN PO CONSTIPATION; Start 07/07/18 at 03:30 Lactulose (Enulose) 20 gm DAILY PRN PO CONSTIPATION; Start 07/07/18 at 03:30 Simethicone (Mylicon) 160 mg Q6H PRN PO DISTENSION/GAS/BLOATING Last administered on 07/11/18 14:54; Admin Dose 160 MG; Start 07/07/18 at 19:30 Miscellaneous Information (* Miscellaneous Pharmacy Order) The patient is on Trulic... ONCE XX ; Start 07/13/18 at 17:30 Non-Formulary Medication 1 ea Fr@1000 SC Last administered on 07/21/18 10:17; Admin Dose 1 EA; Start 07/14/18 at 10:00 Amlodipine Besylate (Norvasc) 5 mg DAILY PO Last administered on 07/18/18 08:29; Admin Dose 5 MG; Start 07/14/18 at 09:00 Benazepril HCl (Lotensin) 40 mg HS PO Last administered on 07/22/18 20:25; Admin Dose 40 MG; Start 07/14/18 at 21:00 Docusate Sodium (Colace) 100 mg QHS PO Last administered on 07/22/18 20:24; Admin Dose 100 MG; Start 07/15/18 at 21:00 Metformin HCl (Glucophage) 500 mg AC BREAKFAST PO Last administered on 07/23/18 08:49; Admin Dose 500 MG; Start 07/16/18 at 07:05 Magnesium Oxide (Mag-Ox 400) 400 mg DAILY PO Last administered on 07/23/18 08:49; Admin Dose 400 MG; Start 07/17/18 at 09:00 Diphenhydramine HCl (Benadryl) 25 mg BID PRN PO ITCHING Last administered on 07/22/18 20:29; Admin Dose 25 MG; Start 07/17/18 at 13:30 Melatonin (Melatonin) 10 mg HS PRN PO insomnia Last administered on 07/22/18 20:25; Admin Dose 10 MG; Start 07/17/18 at 19:00 Warfarin Sodium (Coumadin) 3 mg DAILY@1700 PO Last administered on 07/22/18 17:30; Admin Dose 3 MG; Start 07/20/18 at 17:00 Insulin Aspart (Novolog Insulin Pen) 15 unit WITH MEALS SC Last administered on 07/23/18 12:33; Admin Dose 15 UNIT; Start 07/21/18 at 17:35 Insulin Glargine (Lantus) 28 units DAILY@2000 SC Last administered on 07/22/18at 20:27; Admin Dose 28 UNITS; Start 07/21/18 at 20:00 TYESHA WRAY MD July 23, 2018 12:35
[2018-07-23] MEDS: DIPHENHYDRAMINE 25 MG CAP PO PRN ×2 (12:49→20:27)
[2018-07-23 14:00] VITALS: BP 140/65; PULSE 70; RESP 18
[2018-07-23] MEDS ORDERED: LORAZEPAM 1 MG TAB PO ONE (14:00)
[2018-07-23] MEDS ORDERED: LORAZEPAM 0.5 MG TAB ONE (14:07)
[2018-07-23] MEDS ORDERED: LORAZEPAM 0.5 MG TAB PO ONE (14:30)
[2018-07-23] MEDS: WARFARIN 3 MG TAB PO SCH (17:44)
[2018-07-23 20:00] VITALS: BP 117/58; PULSE 71; RESP 18
[2018-07-23] MEDS: DOCUSATE SODIUM 100 MG CAP PO SCH (20:26)
[2018-07-23] MEDS: ROSUVASTATIN CALCIUM 40 MG TABLET PO SCH (20:27)
[2018-07-23] MEDS: CITALOPRAM 20 MG TAB PO SCH (20:27)
[2018-07-23] MEDS: LAMOTRIGINE 25 MG TAB PO SCH (20:27)
[2018-07-23] MEDS: BENAZEPRIL 40 MG TAB PO SCH (20:28)
[2018-07-23] MEDS: LEVETIRACETAM 750 MG TAB PO SCH (20:42)
[2018-07-23] MEDS: INSULIN GLARGINE [LANTus] (100 UNITS/ML) SYG SC SCH (20:45)
[2018-07-23] MEDS: MELATONIN 5 MG TABLET PO PRN (21:01)
[2018-07-24] MEDS: PANTOPRAZOLE (EC) 40 MG TAB PO SCH (06:19)
[2018-07-24 07:00] VITALS: BP 153/67; PULSE 82; RESP 18
[2018-07-24] MEDS: metFORMIN 500 MG TAB PO SCH (07:53)
[2018-07-24] MEDS: INSULIN ASPART [NOVOLOG] 3 ML PEN SC SCH ×7 (08:02→20:53)
--- NOTE | 2018-07-24 08:56 | PN ---
DATE: 07/24/2018 SUBJECTIVE: The patient is stable. No events overnight. OBJECTIVE: VITAL SIGNS: Blood pressure is 117/58, respirations 18, pulse 71, temperature 97.9. HEENT: Head is normocephalic. NECK: Supple. HEART: Regular rate. LUNGS: Show diminished breath sounds at the base. ABDOMEN: Soft, nontender to palpation without rebound or guarding. EXTREMITIES: Negative for clubbing, cyanosis, no edema. DERMATOLOGIC: No rashes. MUSCULOSKELETAL: No joint effusion. NEUROLOGIC: No change in exam. MEDICATIONS: Reviewed. LABORATORY DATA: Reviewed. ASSESSMENT AND PLAN: 1. Acute encephalopathy, etiology is toxic metabolic. Mental status is improved. Continue to monit or. 2. Right humeral fracture. The patient's repeat x-ray showed mild displacement. The patient's resu lts were faxed to outpatient orthopedist. Continue current pain control. Continue nonweightbearing status. 3. Sepsis secondary to urinary tract infection. The patient is completing antibiotic course. 4. Acute kidney injury on top of chronic kidney disease. Etiology is secondary to hemodynamics. Re nal function is stabilized. Continue current treatment plans, supportive care, renally dose all medi cines. 5. Anemia. Continue to monitor hemoglobin and hematocrit levels. 6. Mineral bone disorder, monitor calcium and phosphorus levels. 7. Hypercoagulable state. The patient's INR is at goal. Coumadin was adjusted. We will follow up INR. 8. Sick sinus syndrome, status post pacemaker. 9. Diabetes. Continue current insulin regimen. Appreciate endocrinology's help with management. 10. Hypertension. Continue current blood pressure regimen. 11. Seizure disorder. Continue Keppra. 12. Dyslipidemia. Continue statin therapy. 13. Insomnia. Continue melatonin. 14. Pruritus, improved. 15. Constipation. Continue current bowel regimen. 16. Gastrointestinal and deep vein thrombosis prophylaxis. Dictated By: NAYELI CHAUDHARI DO NR/NTS Conf#: [id number] DID#: [id number] CC: ELIZABETH MODI NP; TERESA PELLETIER MD; SHIRA LU DO;*EndCC*
[2018-07-24] MEDS: FOLIC ACID 1 MG TAB PO SCH (09:00)
[2018-07-24] MEDS: AMLODIPINE 5 MG TAB PO SCH (09:00)
[2018-07-24] MEDS: LEVETIRACETAM 500 MG TAB PO SCH (09:00)
[2018-07-24] MEDS: METOPROLOL (XL) 100 MG TAB PO SCH (09:01)
[2018-07-24] MEDS: LIDOCAINE 5% PATCH TD SCH (09:01)
[2018-07-24] MEDS: LACOSAMIDE (100 MG/10 ML PO SYR) PO SCH ×2 (09:01→20:47)
[2018-07-24] MEDS: MAGNESIUM OXIDE 400 MG TAB PO SCH (09:01)
[2018-07-24] MEDS: FENOFIBRATE 145 MG TAB PO SCH (09:01)
--- NOTE | 2018-07-24 09:39 | PN ---
Date/Time of Note Date/Time of Note DATE: 07/24/18 TIME: 09:38 Objective Vital Signs Date Temp Pulse Resp B/P (MAP) Pulse Ox O2 O2 Flow FiO2 Time Delivery Rate 07/24/18 98.1 82 18 153/67 95 Room Air 07:00 (95) Intake and Output 07/23/18 07/23/18 07/24/18 1515:00 23:00 07:00 IntakeIntake Total 50 ml 1200 ml OutputOutput Total 600 ml BalanceBalance 50 ml 600 ml Exam INTERDISCIPLINARY TEAM CONFERENCE Attended by PT, OT, ST, Senior Consumer Insights Consultant, Social Work, Rehabilitation Nursing, Pet Stylist and [employer] Adf ConsultantTurner Machine Operator Exam: Pulm- cta Abd-soft BOWEL- Cont BLADDER-Cont SKIN- improving OT- DRESSING- cga/mod BATHING-cga TOILETING-mod PT- BED MOBILITY-min TRANSFERS-min AMBULATION-min 40 feet COGNITION-improving A/P- Interdisciplinary team conference held today. Please see interdisciplinary sheet. Working toward d.c. on 07/25 with post discharge follow up of physical therapy, occupational therapy. Results/Medications Results 24 hrs Laboratory Tests Test 07/23/18 12:17 07/23/18 17:38 07/23/18 20:24 07/24/18 07:54 Bedside Glucose 158 154 253 H 190 Test 07/24/18 08:13 Prothrombin Time 20.2 H Prothrombin Time Ratio 1.6 INR International 1.71 Normalized Ratio Medications Current Medications Acetaminophen (Tylenol Tab) 650 mg Q4H PRN PO MILD PAIN(1-3)OR ELEVATED TEMP Last administered on 07/20/18at 11:18; Admin Dose 650 MG; Start 07/07/18 at 00:00 Bisacodyl (Dulcolax Supp) 10 mg DAILY PRN [place] CONSTIPATION Last administered on 07/13/18at 17:32; Admin Dose 10 MG; Start 07/07/18 at 00:00 Calcium Carbonate (Tums) 1,000 mg Q4H PRN PO Indigestion; Start 07/07/18 at 00:00 Citalopram Hydrobromide (Celexa) 40 mg HS PO Last administered on 07/23/18at 20:27; Admin Dose 40 MG; Start 07/07/18 at 21:00 Fenofibrate (Tricor) 145 mg DAILY PO Last administered on 5/6/19at 09:01; Admin Dose 145 MG; Start 07/07/18 at 09:00 Folic Acid (Folic Acid) 1 mg DAILY PO Last administered on 07/24/18 09:00; Admin Dose 1 MG; Start 07/07/18 at 09:00 Acetaminophen/ Hydrocodone Bitart ([place] (5/325)) 1 tab Q4H PRN PO Pain Last a dministered on 07/21/18 17:25; Admin Dose 1 TAB; Start 07/07/18 at 00:00 Lacosamide (Vimpat Liq) 150 mg BID PO Last administered on 07/24/18 09:01; Admin Dose 150 MG; Start 07/07/18 at 09:00 Lamotrigine (Lamictal) 25 mg HS PO Last administered on 07/23/18 20:27; Admin Dose 25 MG; Start 07/07/18 at 21:00 Levetiracetam (Keppra) 1,000 mg DAILY PO Last administered on 07/24/18 09:00; Admin Dose 1,000 MG; Start 07/07/18 at 09:00 Levetiracetam (Keppra) 1,500 mg HS PO Last administered on 07/23/18 20:42; Admin Dose 1,500 MG; Start 07/07/18 at 21:00 Lidocaine (Lidoderm) 1 patch DAILY TD Last administered on 07/24/18 09:01; Admin Dose 1 PATCH; Start 07/07/18 at 09:00 Metoprolol Succinate (Toprol Xl) 100 mg DAILY PO Last administered on 07/24/18 09:01; Admin Dose 100 MG; Start 07/07/18 at 09:00 Ondansetron HCl (Zofran Tab) 4 mg Q6H PRN PO NAUSEA AND/OR VOMITING; Start 07/07/18 at 00:00 Pantoprazole (Protonix Tab) 40 mg DAILY@06 PO Last administered on 07/24/18 06:19; Admin Dose 40 MG; Start 07/07/18 at 06:00 Insulin Aspart (Novolog Insulin Pen) NOVOLOG *MODERATE* ALGORITHM WITH MEALS BEDTIME SC Last administered on 07/24/18 08:02; Admin Dose 4 UNIT; Start 07/07/18 at 07:35 Miscellaneous Information 1 ea NOTE XX ; Start 07/07/18 at 01:00 Glucose (Glutose) 15 gm Q15M PRN PO DECREASED GLUCOSE; Start 07/07/18 at 01:00 Glucose (Glutose) 22.5 gm Q15M PRN PO DECREASED GLUCOSE; Start 07/07/18 at 01:00 Dextrose (D50w Syringe) 25 ml Q15M PRN IV DECREASED GLUCOSE; Start 07/07/18 at 01:00 Dextrose (D50w Syringe) 50 ml Q15M PRN IV DECREASED GLUCOSE; Start 07/07/18 at 01:00 Glucagon (Glucagen) 1 mg Q15M PRN IM DECREASED GLUCOSE; Start 07/07/18 at 01:00 Glucose (Glutose) 15 gm Q15M PRN BUCCAL DECREASED GLUCOSE; Start 07/07/18 at 01:00 Rosuvastatin Calcium (Crestor) 20 mg HS PO Last administered on 07/23/18at 20:27; Admin Dose 20 MG; Start 07/07/18 at 21:00 Senna (Senokot) 1 tab HS PRN PO CONSTIPATION; Start 07/07/18 at 21:00 Magnesium Hydroxide (Milk Of Mag) 30 ml BID PRN PO CONSTIPATION; Start 07/07/18 at 03:30 Lactulose (Enulose) 20 gm DAILY PRN PO CONSTIPATION; Start 07/07/18 at 03:30 Simethicone (Mylicon) 160 mg Q6H PRN PO DISTENSION/GAS/BLOATING Last administered on 07/11/18at 14:54; Admin Dose 160 MG; Start 07/07/18 at 19:30 Miscellaneous Information (* Miscellaneous Pharmacy Order) The patient is on Trulic... ONCE XX ; Start 07/13/18 at 17:30 Non-Formulary Medication 1 ea Fr@1000 SC Last administered on 07/21/18at 10:17; Admin Dose 1 EA; Start 07/14/18 at 10:00 Amlodipine Besylate (Norvasc) 5 mg DAILY PO Last administered on 07/24/18at 09:00; Admin Dose 5 MG; Start 07/14/18 at 09:00 Benazepril HCl (Lotensin) 40 mg HS PO Last administered on 07/23/18at 20:28; Admin Dose 40 MG; Start 07/14/18 at 21:00 Docusate Sodium (Colace) 100 mg QHS PO Last administered on 07/23/18 20:26; Admin Dose 100 MG; Start 07/15/18 at 21:00 Metformin HCl (Glucophage) 500 mg AC BREAKFAST PO Last administered on 9at 07:53; Admin Dose 500 MG; Start 07/16/18 at 07:05 Magnesium Oxide (Mag-Ox 400) 400 mg DAILY PO Last administered on 07/24/18 09:01; Admin Dose 400 MG; Start 07/17/18 at 09:00 Diphenhydramine HCl (Benadryl) 25 mg BID PRN PO ITCHING Last administered on 07/23/18 20:27; Admin Dose 25 MG; Start 07/17/18 at 13:30 Melatonin (Melatonin) 10 mg HS PRN PO insomnia Last administered on 07/23/18 21:01; Admin Dose 10 MG; Start 07/17/18 at 19:00 Warfarin Sodium (Coumadin) 3 mg DAILY@1700 PO Last administered on 07/23/18 17:44; Admin Dose 3 MG; Start 07/20/18 at 17:00 Insulin Aspart (Novolog Insulin Pen) 15 unit WITH MEALS SC Last administered on 07/24/18 08:03; Admin Dose 15 UNIT; Start 07/21/18 at 17:35 Insulin Glargine (Lantus) 28 units DAILY@2000 SC Last administered on 07/23/18 20:45; Admin Dose 28 UNITS; Start 07/21/18 at 20:00 TERESA PELLETIER MD July 24, 2018 09:39
[2018-07-24 14:00] VITALS: BP 147/67; PULSE 80; RESP 18
[2018-07-24] MEDS: DIPHENHYDRAMINE 25 MG CAP PO PRN ×2 (14:53→20:51)
[2018-07-24] MEDS ORDERED: WARFARIN 2 MG TAB PO SCH (17:00)
[2018-07-24 20:00] VITALS: BP 129/60; PULSE 71; RESP 18
[2018-07-24] MEDS: LEVETIRACETAM 750 MG TAB PO SCH (20:48)
[2018-07-24] MEDS: DOCUSATE SODIUM 100 MG CAP PO SCH (20:48)
[2018-07-24] MEDS: LAMOTRIGINE 25 MG TAB PO SCH (20:48)
[2018-07-24] MEDS: CITALOPRAM 20 MG TAB PO SCH (20:49)
[2018-07-24] MEDS: BENAZEPRIL 40 MG TAB PO SCH (20:50)
[2018-07-24] MEDS: INSULIN GLARGINE [LANTus] (100 UNITS/ML) SYG SC SCH (20:52)
[2018-07-24] MEDS: ROSUVASTATIN CALCIUM 40 MG TABLET PO SCH (20:53)
[2018-07-24] MEDS: MELATONIN 5 MG TABLET PO PRN (20:54)
[2018-07-25] MEDS ORDERED: ACCUCHECK AT 2AM (Patients on SS coverage) XX SCH (02:00)
[2018-07-25 02:30] VITALS: BP 118/69; PULSE 65; RESP 18
[2018-07-25] MEDS: PANTOPRAZOLE (EC) 40 MG TAB PO SCH (06:34)
[2018-07-25 07:30] VITALS: BP 140/63; PULSE 72; RESP 18
[2018-07-25] MEDS: HYDROCODONE/APAP (5/325) TAB PO PRN (08:01)
[2018-07-25] MEDS: metFORMIN 500 MG TAB PO SCH (08:02)
[2018-07-25] MEDS: INSULIN ASPART [NOVOLOG] 3 ML PEN SC SCH ×4 (08:06→12:06)
--- NOTE | 2018-07-25 08:38 | PN ---
DATE: 07/25/2018 SUBJECTIVE: The patient is stable, no events overnight. OBJECTIVE: VITAL SIGNS: Blood pressure is 118/69, respirations 18, pulse 65, temperature 97.8. HEENT: Head is normocephalic. NECK: Supple. HEART: Regular rate. LUNGS: Show diminished breath sounds at the base. ABDOMEN: Soft, nontender to palpation without rebound or guarding. EXTREMITIES: Negative for clubbing, cyanosis, no edema. DERMATOLOGIC: No rashes. MUSCULOSKELETAL: No joint effusion. NEUROLOGIC: No change in exam. MEDICATIONS: Reviewed. LABORATORY DATA: Reviewed. ASSESSMENT AND PLAN: 1. Acute encephalopathy. Etiology is toxic metabolic. The patient's mental status is improved. Co ntinue to monitor. 2. Right humeral fracture. Continue pain control. Continue nonweightbearing status. Followup with outpatient orthopedist. 3. Sepsis secondary to urinary tract infection. The patient is completing antibiotic course. 4. Acute kidney injury on top of chronic kidney disease. Etiology is secondary to hemodynamics. Re nal function stabilized. Continue current treatment plans, supportive care, renally dose all medicat ions. 5. Anemia. Continue to monitor hemoglobin and hematocrit levels. 6. Mineral bone disorder, monitor calcium and phosphorus levels. 7. Hypercoagulable state. The patient's INR is at goal. Coumadin was adjusted. Continue to monito r. 8. Sick sinus syndrome, status post pacemaker. 9. Diabetes. Continue current insulin regimen. 10. Hypertension. Continue current blood pressure regimen. 11. Seizure disorder. Continue Keppra. 12. Dyslipidemia. Continue statin therapy. 13. Insomnia. Continue melatonin. 14. Constipation. Continue current bowel regimen. 15. Gastrointestinal and deep vein thrombosis prophylaxis. Dictated By: NAYELI CHAUDHARI DO NR/NTS Conf#: [id number] DID#: [id number] CC: SHIRA LU DO; ELIZABETH MODI NP; TERESA PELLETIER MD;*End*
[2018-07-25] MEDS: LIDOCAINE 5% PATCH TD SCH (08:48)
[2018-07-25] MEDS: LEVETIRACETAM 500 MG TAB PO SCH (08:48)
[2018-07-25] MEDS: LACOSAMIDE (100 MG/10 ML PO SYR) PO SCH (08:48)
[2018-07-25] MEDS: METOPROLOL (XL) 100 MG TAB PO SCH (08:49)
[2018-07-25] MEDS: MAGNESIUM OXIDE 400 MG TAB PO SCH (08:49)
[2018-07-25] MEDS: FENOFIBRATE 145 MG TAB PO SCH (08:50)
[2018-07-25] MEDS: FOLIC ACID 1 MG TAB PO SCH (08:50)
--- NOTE | 2018-07-25 12:51 | DS ---
Date/Time of Note Date/Time of Note DATE: 07/25/18 TIME: 12:49 Discharge Summary Admission/Discharge Info Admit Date/Time Jul 06, 2018 at 19:47 Discharge Date/Time Discharge Diagnosis 1. Toxic metabolic encephalopathy superimposed on history of CVA with residual right upper extremity weakness. 2. Status post fall with right upper extremity fracture, being managed conservatively. 3. Seizure disorder. 4. Diabetes mellitus type 2 with labile blood sugars. 5. Hyperlipidemia. 6. History of hypercoagulable state. 7. History of arrhythmia, sick sinus syndrome and pacemaker placement. 8. Status post sepsis and urinary tract infection. 9. chronic kidney injury. 10. Hypertension. 1. Improvements in self-care, mobility and cognition. Patient Condition: Good Hospital Course The patient was admitted for comprehensive interdisciplinary rehabilitation and made steady functional gains from a Max level to a min level for self care tasks and mobility including ambulating 40 feet with the use of a FWW. Caregiver was safely trained in assistance. Patient is being discharged home with the recommendation of home health PT, OT and RN follow up. The DC meds are per the medication reconciliation sheet. The discharge equipment recommendations include: FWW, BSC, shower chair. The patient will follow up with PMD upon DC. Primary Care Provider Not On Staff Doctor Pending Labs Laboratory Tests Test 07/24/18 17:25 07/24/18 20:42 07/25/18 06:17 07/25/18 07:57 Bedside 124 217 147 Glucose mg/dL (70-220) mg/dL (70-220) mg/dL (70-220) Prothrombin 22.0 Time Sec (11.9-14.9 ) Prothrombin 1.7 Time Ratio INR 1.91 International Normalized Rati o Test 07/25/18 11:59 Bedside 143 Glucose mg/dL (70-220) TERESA PELLETIER MD July 25, 2018 12:51
== END 2018-07-25 12:45 | disposition home or self-care (01) | DRG 92 ==
LOC: VRC 19:47
PROVIDERS: ADMIT Physical Medicine & Rehabilitation; ATTEND Internal Medicine Nephrology
PROC: F07Z5ZZ Bed Mobility Treatment (ICD-10-PCS; principal; 2018-07-06)
PROC: F08Z2ZZ Grooming/Personal Hygiene Treatment (ICD-10-PCS; 2018-07-06)
PROC: F06Z6ZZ Communicative/Cognitive Integration Skills Treatment (ICD-10-PCS; 2018-07-06)
DX: G92 Toxic encephalopathy (principal); N17.9 Acute kidney failure, unspecified; D68.59 Other primary thrombophilia; I69.951 Hemiplegia and hemiparesis following unspecified cerebrovascular disease affecting right dominant side; I12.9 Hypertensive chronic kidney disease with stage 1 through stage 4 chronic kidney disease, or unspecified chronic kidney disease; E11.22 Type 2 diabetes mellitus with diabetic chronic kidney disease; N18.9 Chronic kidney disease, unspecified; D64.9 Anemia, unspecified; E83.9 Disorder of mineral metabolism, unspecified; G40.909 Epilepsy, unspecified, not intractable, without status epilepticus; Z91.81 History of falling; E78.5 Hyperlipidemia, unspecified; I69.931 Monoplegia of upper limb following unspecified cerebrovascular disease affecting right dominant side; S42.301D Unspecified fracture of shaft of humerus, right arm, subsequent encounter for fracture with routine healing; I49.5 Sick sinus syndrome; G47.00 Insomnia, unspecified; L29.9 Pruritus, unspecified; K59.00 Constipation, unspecified; Z87.81 Personal history of (healed) traumatic fracture; Z86.19 Personal history of other infectious and parasitic diseases; Z87.440 Personal history of urinary (tract) infections; Z79.01 Long term (current) use of anticoagulants; Z79.4 Long term (current) use of insulin
CPT/HCPCS: 80048; 80053; 81001; 81003; 82043; 82728; 82962; 83540; 83735; 84100; 84155; 84300; 85025; 85610; 87081; 87086; 92523; 97110; 97112; 97116; 97163; 97530; 97535; 97542; A4310; J1815